=== PATIENT | female | born 1950 | race Caucasian/White ===

== ENCOUNTER 2020-04-28 15:21 | Outpatient (REF) | payer MEDICARE, OTHER, SELFPAY | END 2020-04-28 15:22 | disposition home or self-care (01) | LOC: HO.MAMMO 15:21 | PROVIDERS: Visit Provider Internal Medicine | DX: Z13.89 Encounter for screening for other disorder (principal) ==

== ENCOUNTER 2020-05-21 14:54 | Outpatient (REF) | payer MEDICARE, OTHER, SELFPAY ==
--- NOTE | 2020-05-21 15:14 | US_ITS ---
EXAMINATION: US VENOUS ULTRASOUND WITH DOPPLER LOWER EXTREMITY, BILATERAL CLINICAL INFORMATION: Lower extremity pain. COMPARISON: None TECHNIQUE: Ultrasound of the deep veins is performed from the hip to the calf with compression sonography and color and pulse Doppler assessment. Spectral analysis with color-flow imaging is performed. FINDINGS: RIGHT: There is normal venous compression and respiratory variation and augmented flow. The visualized common femoral vein, femoral vein, profunda femoral vein, popliteal vein, and the trifurcation region shows no evidence of deep venous thrombosis. The distal segment of the right femoral vein as well as the peroneal and posterior tibial veins were suboptimally visualized. There is no significant popliteal fossa cyst. LEFT: There is normal venous compression and respiratory variation and augmented flow. The visualized common femoral vein, femoral vein, profunda femoral vein, popliteal vein, and the trifurcation region shows no evidence of deep venous thrombosis. The left peroneal vein was suboptimally visualized. There is no significant popliteal fossa cyst. No popliteal cyst is seen bilaterally. The subcutaneous soft tissues show mild to moderate edema in the calves bilaterally. If the patient's symptoms persist, followup ultrasound in 5 days 7 days might be of value to exclude proximal propagation from a non-visualized calf vein. US/US venous duplex LE BI IMPRESSION: 1. No evidence for deep venous thrombosis in the visualized veins of the bilateral lower extremities. 2. Mild to moderate subcutaneous edema in the calves bilaterally.
[2020-05-21 16:21] LABS: MANUAL DIFF FLAG NO
[2020-05-21 16:26] LABS: Basophils Percent Auto 0.4 % (0-2); Eosinophils Absolute Auto 0.6 X10*3/uL (0.0-0.4); Eosinophils Percent Auto 6.7 % (0-4); Hematocrit 40.7 % (37-47); Hemoglobin 13.2 g/dl (12.0-16.0); Imm Gran Abs Auto 0.02 X10*3/uL (0.00-0.03); Imm Gran Pct Auto 0.2 % (0.0-0.4); Lymphocytes Absolute Auto 1.8 X10*3/uL (1.2-4.9); Lymphocytes Percent Auto 19.6 % (20-40); Mean Corpuscular HGB Conc 32.4 g/dl (31.0-35.0); Mean Corpuscular Hemoglobin 29.8 pg (27.0-33.0); Mean Corpuscular Volume 91.9 fL (80-98); Mean Platelet Volume 9.9 fL (9.4-12.3); Monocytes Absolute Auto 0.8 X10*3/uL (0.1-1.2); Monocytes Percent Auto 8.6 % (2-11); Neutrophils Absolute Auto 6.1 X10*3/uL (2.0-8.3); Neutrophils Percent Auto 64.5 % (45-73); Platelet Count 274 X10*3/uL (160-400); Red Blood Count 4.43 X10*6/uL (4.20-5.50); Red Cell Distribution Width 14.2 % (11.0-16.0); White Blood Count 9.4 X10*3/uL (4.8-10.8)
[2020-05-21 16:47] LABS: Alanine Aminotransferase 17 U/L (0-31); Albumin Level 3.5 g/dL (3.5-5.0); Alkaline Phosphatase 78 U/L (39-117); Anion Gap 12 (12-20); Aspartate Amino Transferase 21 U/L (5-31); Bilirubin Total 0.5 mg/dL (0.0-1.0); Blood Urea Nitrogen 23 mg/dL (9-16); Calcium 8.9 mg/dL (8.4-10.2); Carbon Dioxide 27 mmol/L (22-29); Chloride 105 mmol/L (96-108); Cholesterol 196 mg/dL; Estimated Glomerular Filt Rate > 60; Glucose Random 84 mg/dL (60-115); HDL Cholesterol 54 mg/dL; LDL Cholesterol Calculated 124 mg/dl; Potassium 4.4 mmol/l (3.3-5.1); Sodium 140 mmol/L (135-145); Total Protein 6.9 g/dL (6.5-8.0); Triglycerides 94 mg/dL
[2020-05-21 17:00] LABS: Appearance Urine CLEAR; Color Urine YELLOW; Glucose Urine UA NEG (NEG); Leukocyte Esterase Urine NEG (NEG); Nitrite Urine NEG (NEG); Specific Gravity - Urine 1.015 (1.005-1.025); Urine Blood 2+ (NEG); Urine Ketones NEG (NEG); Urine Protein 1+ MG/DL (NEG-TRACE)
[2020-05-21 17:07] LABS: Thyroid Stimulating Hormone 1.51 uIU/mL (0.32-4.0)
[2020-05-21 17:14] LABS: WBC Urine 0 /HPF (0-4)
[2020-05-21 17:15] LABS: Squamous Epithelial Cell Urine TRACE /LPF
[2020-05-21 17:19] LABS: Folate 6.3 ng/mL (> or = 4.0); Vitamin B12 519 pg/mL (200-900)
== END 2020-05-21 14:55 | disposition home or self-care (01) ==
LOC: HO.LAB 14:54
PROVIDERS: PCP Internal Medicine; Visit Provider Internal Medicine
DX: M79.89 Other specified soft tissue disorders (principal); E78.00 Pure hypercholesterolemia, unspecified; I10 Essential (primary) hypertension
CPT/HCPCS: 36415; 80053; 80061; 81001; 82306; 82607; 82746; 84443; 85025; 93970

== ENCOUNTER 2020-06-28 16:04 | Outpatient (REF) | payer MEDICARE, OTHER, SELFPAY ==
--- NOTE | 2020-06-28 | MM_ITS ---
EXAMINATION: MM SCREENING DIGITAL BREAST TOMOSYNTHESIS, BILATERAL CLINICAL INFORMATION: Screening. Asymptomatic. The lifetime risk of breast cancer based on the Tyrer-Cuzick Model is 4%. COMPARISON: Mammography: 11/08/2018, 10/22/2017, 10/05/2016, 11/11/2014 TECHNIQUE: Digital breast tomosynthesis is performed in both the craniocaudal and mediolateral oblique views along with computer-aided detection (CAD). Synthesized 2D images are generated from the tomosynthesis. Additional left CC view is provided. Technologist notes challenging exam, patient in wheelchair. Exam tailored for patient capabilities. FINDINGS: There are scattered areas of fibroglandular density (ACR BI-RADS breast composition Category b). Breast tissue composition borders on predominantly fatty. Background stromal markings and fibroglandular densities are stable. There are no significant masses, abnormal calcifications, or other abnormalities. There are scattered bilateral round predominantly dermal calcifications, slightly greater on right. MM/MM tomosynthesis screening BI IMPRESSION: No mammographic evidence of malignancy. ASSESSMENT: BI-RADS 2: Benign RECOMMENDATION: Routine annual mammography screening. This patient's information was entered into a reminder system with a target due date for their next mammogram.
== END 2020-06-28 16:05 | disposition home or self-care (01) ==
LOC: HO.MAMMO 16:04
PROVIDERS: Visit Provider Internal Medicine
DX: Z12.31 Encounter for screening mammogram for malignant neoplasm of breast (principal)
CPT/HCPCS: 77063; 77067

== ENCOUNTER 2020-06-29 15:08 | Outpatient (REF) | payer MEDICARE, OTHER, SELFPAY ==
--- NOTE | 2020-06-29 | PFT_ITS ---
INDICATION: Interstitial lung disease. SPIROMETRY: The FEV1 to FVC of 79% with an FEV1 of 1.37 L, which is 59% predicted and an FVC of 1.75 L, which is 57% predicted. No significant response to bronchodilators noted. Maximum voluntary ventilation 52% predicted. LUNG VOLUMES: Total lung capacity 70% predicted with an expiratory reserve volume of 17% predicted likely from an elevated BMI. DIFFUSION CAPACITY: DLCO 75% predicted. This does correct to normal when correcting for the alveolar volume. COMPARISONS: None. INTERPRETATION: No obstructive ventilatory defect. No significant response to bronchodilators noted. There may be a component of small airways disease, which may be due to the elevated BMI. The patient also has a moderate decrease in maximum voluntary ventilation, which could be secondary to deconditioning. Lung volumes do demonstrate a moderate restrictive ventilatory defect consistent with underlying elevated BMI or body habitus in addition to the possibility of underlying interstitial lung disease. The patient has mild diffusion impairment. This does correct to normal when correcting for the alveolar volume. Need to consider underlying interstitial lung conditions and/or underlying pulmonary vascular conditions. Clinical correlation warranted. MD JACK Singh/VIPIN / [id number]
== END 2020-06-29 15:09 | disposition home or self-care (01) ==
LOC: HO.RESP 15:08
PROVIDERS: PCP Internal Medicine; Visit Provider Internal Medicine Pulmonary Disease
DX: J84.9 Interstitial pulmonary disease, unspecified (principal)
CPT/HCPCS: 94060; 94727; 94729; 99212

== ENCOUNTER → 2020-08-23 14:20 | Outpatient (REF) | payer MEDICARE, OTHER, SELFPAY ==
--- NOTE | ~2020-08-23 | US_ITS ---
EXAMINATION: US RETROPERITONEAL LIMITED (RENAL ONLY) CLINICAL INFORMATION: Renal neoplasm. Angiomyolipoma. COMPARISON: Ultrasound renal 08/06/2019. Ultrasound renal 08/15/2018. X-ray KUB 03/31/2019. X-ray abdomen 03/15/2017. CT abdomen and pelvis 12/03/2017. TECHNIQUE: Real-time imaging of the kidneys. FINDINGS: RIGHT KIDNEY: 12.1 x 5.3 x 5.6 cm (SAG x AP x TRV). The kidney is normal in size, contour, and echogenicity. Renal cortical thickness is normal. There are 3 cysts. There is a 3.1 x 2.6 x 2.5 cm simple peripelvic cyst in the midpole. There is a 3.2 x 1.8 x 2.5 cm complex cyst with slightly irregular septation in the midpole. There is a 1.1 x 0.5 x 0.8 cm simple cortical cyst in the lower pole. No renal calculi or hydronephrosis. LEFT KIDNEY: 11.5 x 5.4 x 6.5 cm (SAG x AP x TRV). The kidney is normal in size, contour, and echogenicity. Renal cortical thickness is normal. There is a 1.4 x 0.9 x 1 cm simple cortical cyst in the lower pole. No renal calculi or hydronephrosis. US/US renal BI IMPRESSION: Three right renal cysts. There is a 3.2 x 1.8 x 2.5 cm complex peripelvic cyst in the right mid pole with slightly irregular septation. The other 2 right renal cysts are simple cysts. Small left renal simple cyst. No renal angiomyolipoma appreciated by ultrasound..
--- NOTE | 2020-08-23 14:24 | CA_ITS ---
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 Normal LV systolic function with impaired relaxation filling pattern 2. Normal cardiac valvular Dopplers 3. Normal RV systolic pressure 4. No gross pericardial effusion Findings Left Ventricle Normal left ventricular size, thickness, and systolic function. The visually estimated ejection fraction is between 55-60%. Spectral Doppler is indicative of an impaired relaxation filling pattern. E/E prime ratio is between 8 and 15 consistent with indeterminate filling pressures. Right Ventricle Normal right ventricular cavity size and systolic function. Atria The left atrium is normal in size. Interatrial shunt cannot be excluded. The right atrium was not well visualized. Aortic Valve The aortic valve was not well visualized. There is no aortic valve stenosis. There is no aortic valve regurgitation. Mitral Valve Likely normal mitral valve structure and function. There is no mitral valve regurgitation. There is no mitral valve stenosis. Pulmonic Valve The pulmonic valve was not well visualized. Tricuspid Valve Likely normal tricuspid valve structure and function. There is trace tricuspid valve regurgitation. The right ventricular systolic pressure is normal. The right ventricular systolic pressure is 21 mmHg. There is no evidence of pulmonary hypertension. Great Vessels The aorta was not well visualized. The pulmonary artery was not well visualized. Venous The inferior vena cava is normal in size and collapses greater than 50% with inspiration. Pericardium/Pleural There is no evidence of pericardial effusion. Prior Study Comparison No significant change compared to prior study dated: 02/05/2020. Ascending aorta is not well visualized on this study, if there is a concern consider alternative imaging modalities Measurements 2D Linear Measurements IVSd: 1.08 0.6-0.9/0.6-1.0 cm LVIDd: 3.45 3.9-5.3/4.2-5.9 cm LVIDd Index: 1.47 2.4-3.2/2.2-3.1 cm/m2 LVIDs: 2.36 2.0-3.6 cm LVPWd: 1.04 0.7-1.1 cm Ao Root: 3.00 2.1-3.5 cm LA Diam: 3.20 2.7-3.8/3.0-4.0 cm LAIDs Index: 1.36 1.5-2.3 cm/m2 LV Mass: 137.01 67-162/88-224 g LV Mass Index: 58.30 43-95/49-115 g/m2 LVOT Diam: 2.00 3.0+(-)1.3 cm 2D Systolic Function EF 4C: 56.10 >55% EF 2C: 55.90 >55% Mitral Valve MV Pk E: 0.81 MV PK A: 1.13 MV Decel Time: 219.00 E/A: 0.70 E'Lateral: 7.07 E'Medial: 6.20 E/E' Med: 13.10 E/E' Lat: 11.50 PHT: 64.00 MVA PHT: 3.44 Decel Sandoval: 3.73 Aortic Valve AoV Pk Hakan: 1.58 AoV Mn Hakan: 1.18 AoV VTI: 0.38 AoV Pk Grad: 10.00 Aov Mn Grad: 6.00 GALINDO Cont.VTI: 2.47 LVOT LVOT Pk Hakan: 1.35 LVOT Mn Hakan: 0.91 LVOT VTI: 0.30 LVOT Pk Grad: 7.00 LVOT Mn Grad: 4.00 LVOT Diam: 2.00 LVOT Area: 3.14 Diastolic Function MV Pk E: 0.81 MV Pk A: 1.13 E/A: 0.70 E'Medial: 6.20 E/E' Med: 13.10 E' Laterial: 7.07 E/E' Lat: 11.50 Tricuspid Valve TR Pk Hakan: 2.14 TR Pk Grad: 18.00 RA Press: 3.00 RVSP: 21.00 Great Vessels Aorta Ao Root-2D: 3.00 2.0-3.7 cm Ao Asc: 3.60 2.1-3.4 cm Ao Arch: 3.00 Updated in Other Vendor System with Status of Final Juan Hall MD electronically signed on 08/24/2020 8:57:57 AM with status of Final
== END ==
LOC: HO.CARD 14:20
PROVIDERS: Visit Provider Internal Medicine
DX: I77.810 Thoracic aortic ectasia (principal); D49.519 Neoplasm of unspecified behavior of unspecified kidney; D17.9 Benign lipomatous neoplasm, unspecified
CPT/HCPCS: 76775; 93306

== ENCOUNTER → 2020-09-02 15:50 | Outpatient (BNVA) | payer MEDICARE, SELFPAY | PROVIDERS: PCP Internal Medicine; Visit Provider Urology | DX: Z13.89 Encounter for screening for other disorder (principal) | CPT/HCPCS: Q3014 ==

== ENCOUNTER → 2020-09-06 12:44 | Outpatient (BNVA) | payer MEDICARE, SELFPAY | PROVIDERS: PCP Internal Medicine; Referring Provider Internal Medicine; Visit Provider Internal Medicine | DX: Z13.89 Encounter for screening for other disorder (principal) | CPT/HCPCS: Q3014 ==

== ENCOUNTER 2020-09-09 16:40 | Outpatient (REF) | payer MEDICARE, SELFPAY ==
[2020-09-09 17:52] LABS: MANUAL DIFF FLAG NO
[2020-09-09 18:08] LABS: Glucose Urine UA NEG (NEG); Leukocyte Esterase Urine NEG (NEG); Nitrite Urine NEG (NEG); PH 5.5 (5.0-8.0); Specific Gravity - Urine 1.015 (1.005-1.025); Urine Blood 2+ (NEG); Urine Ketones NEG (NEG); Urine Protein 1+ MG/DL (NEG-TRACE)
[2020-09-09 18:09] LABS: Appearance Urine CLEAR; Color Urine YELLOW
[2020-09-09 18:16] LABS: Bacteria Urine 1+ /LPF; Squamous Epithelial Cell Urine 2+ /LPF; WBC Urine 0 /HPF (0-4)
[2020-09-09 18:19] LABS: Basophils Percent Auto 0.4 % (0-2); Eosinophils Absolute Auto 0.6 X10*3/uL (0.0-0.4); Eosinophils Percent Auto 6.9 % (0-4); Hematocrit 40.5 % (37-47); Hemoglobin 12.8 g/dl (12.0-16.0); Imm Gran Abs Auto 0.02 X10*3/uL (0.00-0.03); Imm Gran Pct Auto 0.2 % (0.0-0.4); Lymphocytes Absolute Auto 1.2 X10*3/uL (1.2-4.9); Lymphocytes Percent Auto 13.1 % (20-40); Mean Corpuscular HGB Conc 31.6 g/dl (31.0-35.0); Mean Corpuscular Hemoglobin 29.8 pg (27.0-33.0); Mean Corpuscular Volume 94.2 fL (80-98); Mean Platelet Volume 10.3 fL (9.4-12.3); Monocytes Absolute Auto 0.8 X10*3/uL (0.1-1.2); Monocytes Percent Auto 8.7 % (2-11); Neutrophils Absolute Auto 6.6 X10*3/uL (2.0-8.3); Neutrophils Percent Auto 70.7 % (45-73); Platelet Count 254 X10*3/uL (160-400); Red Cell Distribution Width 14.3 % (11.0-16.0); White Blood Count 9.3 X10*3/uL (4.8-10.8)
[2020-09-09 18:21] LABS: Anion Gap 12 (12-20); Blood Urea Nitrogen 29 mg/dL (9-16); Calcium 8.9 mg/dL (8.4-10.2); Carbon Dioxide 28 mmol/L (22-29); Chloride 106 mmol/L (96-108); Estimated Glomerular Filt Rate > 60; Glucose Fasting 103 mg/dL (60-99); Potassium 4.4 mmol/L (3.3-5.1); Sodium 142 mmol/L (135-145)
[2020-09-09 18:44] LABS: Free T4 (Free Thyroxine) 0.86 ng/dL (0.71-1.85); Thyroid Stimulating Hormone 1.61 uIU/mL (0.32-4.0)
[2020-09-10 04:43] LABS: SARS COV2 IgG Negative (Negative)
== END 2020-09-09 16:41 | disposition home or self-care (01) ==
LOC: HO.LAB 16:40
PROVIDERS: Nurse Practitioner Family; Absent Provider Internal Medicine; PCP Internal Medicine; Visit Provider Internal Medicine
DX: I10 Essential (primary) hypertension (principal); M79.89 Other specified soft tissue disorders; M06.9 Rheumatoid arthritis, unspecified; J84.9 Interstitial pulmonary disease, unspecified; E04.2 Nontoxic multinodular goiter; Z01.84 Encounter for antibody response examination
CPT/HCPCS: 36415; 80048; 81001; 84439; 84443; 85025; 86769

== ENCOUNTER 2020-09-16 16:44 | Outpatient (REF) | payer MEDICARE, SELFPAY ==
--- NOTE | ~2020-09-16 | US_ITS ---
EXAMINATION: US THYROID CLINICAL INFORMATION: Nontoxic multinodular goiter. COMPARISON: Thyroid ultrasound 02/05/2020 and 07/14/2019. TECHNIQUE: Linear transducer bhakta-scale and color Doppler examination with attention to the region of the thyroid. Technically difficult study secondary to body habitus. FINDINGS: SIZE: Measurements of the thyroid lobes and nodules are given in sagittal, anteroposterior and transverse dimensions respectively. Right Thyroid Lobe: 3.8 x 1.8 x 2.0 cm, volume 7.4 mL. Previously 3.8 x 2.0 x 1.9 cm, volume 7.6 mL. Parenchyma: The gland echotexture is homogeneous. Thyroid vascularity is normal. Left Thyroid Lobe: 3.8 x 2.0 x 1.7 cm, volume 7.3 mL. Previously 3.7 x 1.8 x 2.0 cm, volume 7.0 mL. Parenchyma: The gland echotexture is homogeneous. Thyroid vascularity is normal. Isthmus: 0.5 cm in maximum AP dimension. Previously 0.4 cm. Estimated total number of nodules greater than or equal to 1 cm: 1. Math Teacher nodules are described as follows: 1. Location: Right lower pole. Size: 0.6 x 0.5 x 0.3 cm, volume 0.05 mL. Previously: 0.4 x 0.4 x 0.3 cm, volume 0.03 mL. Nodule characteristics: Composition: Solid (2). Echogenicity: Anechoic (0). Shape: Not taller than wide (0). Margins: Ill-defined (0). Echogenic Foci: None (0). ACR TI-RADS total points: 2 ACR TI-RADS category: 2 Significant change in size (>/= 20% in 2 dimensions and minimal increase of 2 mm or 50% or greater increase in volume): None. Change in features: Slightly ill-defined at this time. Change in ACR TI-RADS risk category: None. 2. Location: Left mid pole. Size: 2.0 x 1.1 x 1.4 cm, volume 1.6 mL. Previously: 1.7 x 0.9 x 1.5 cm, volume 1.2 mL. Nodule characteristics: Composition: Solid/almost completely solid (2). Echogenicity: Hypoechoic (2). Shape: Not taller than wide (0). Margins: Smooth (0). Echogenic Foci: None (0). ACR TI-RADS total points: 4 ACR TI-RADS category: 4 Significant change in size (>/= 20% in 2 dimensions and minimal increase of 2 mm or 50% or greater increase in volume): None. Change in features: None. Change in ACR TI-RADS risk category: None. NODES: No lymphadenopathy is seen in the tissue surrounding the thyroid gland. US/US thyroid IMPRESSION: Stable bilateral thyroid nodules. Recommend continued follow up. ACR TI-RADS RECOMMENDATION REFERENCE: Ultrasound-guided fine-needle aspiration, follow up ultrasound, no further follow up. * TR1 (0 point) and TR 2 (2 points): No FNA or follow up * TR3 (3 points): FNA if more than or equal to 2.5 cm in maximum dimension, follow up ultrasound in 1, 3 and 5 years if 1.5 to 2.4 cm in maximum dimension. * TR4 (4-6 points): FNA if more than or equal to 1.5 cm in maximum dimension, follow up ultrasound in 1, 2, 3 and 5 years if 1 to 1.4 cm in maximum dimension. * TR5 (more than or equal to 7 points): FNA if more than or equal to 1 cm in maximum dimension, follow up ultrasound every year for 5 years if 0.5 to 0.9 cm in maximum dimension. * TR3, TR4 or TR5 nodules that are below the size threshold for follow up receive no follow up.
== END 2020-09-16 16:45 | disposition home or self-care (01) ==
LOC: HO.US 16:44
PROVIDERS: Visit Provider Internal Medicine
DX: E04.2 Nontoxic multinodular goiter (principal)
CPT/HCPCS: 76536

== ENCOUNTER → 2020-10-06 14:13 | Outpatient (BNVA) | payer MEDICARE, SELFPAY | PROVIDERS: PCP Internal Medicine; Visit Provider Internal Medicine | DX: E04.2 Nontoxic multinodular goiter (principal) | CPT/HCPCS: Q3014 ==

== ENCOUNTER → 2020-10-07 15:43 | Outpatient (BNVA) | payer MEDICARE, SELFPAY | PROVIDERS: PCP Internal Medicine; Visit Provider Internal Medicine Pulmonary Disease | DX: J84.9 Interstitial pulmonary disease, unspecified (principal); E66.01 Morbid (severe) obesity due to excess calories | CPT/HCPCS: 99212 ==

== ENCOUNTER 2020-11-02 13:17 | Outpatient (REF) | payer MEDICARE, SELFPAY ==
--- NOTE | ~2020-11-02 | XR_ITS ---
EXAMINATION: XR HAND AND WRIST, BILATERAL CLINICAL INFORMATION: Rheumatoid arthritis. COMPARISON: None TECHNIQUE: 4 views each hand/wrist. FINDINGS: RIGHT HAND: There is diffuse juxta-articular osteopenia involving the carpal bones. There is diffuse loss of PIP, DIP and MCP joints. Also visualized is loss of radiocarpal joint space. There is mild soft tissue swelling PIP joints. LEFT HAND: There is juxta-articular and carpal bone osteoporosis. Significant loss of PIP, DIP, MCP and radiocarpal joint spaces seen. There is mild proximal phalangeal soft tissue swelling of 2nd through 4th digits. No flexion deformities or subluxation seen. XR/XR hand wrist LT IMPRESSION: Bilateral diffuse arthritic changes with juxta-articular and carpal bone osteoporosis more suggestive of rheumatoid changes. There are no flexion deformities seen. No acute fracture.
--- NOTE | ~2020-11-02 | XR_ITS ---
EXAMINATION: XR HAND AND WRIST, BILATERAL CLINICAL INFORMATION: Rheumatoid arthritis. COMPARISON: None TECHNIQUE: 4 views each hand/wrist. FINDINGS: RIGHT HAND: There is diffuse juxta-articular osteopenia involving the carpal bones. There is diffuse loss of PIP, DIP and MCP joints. Also visualized is loss of radiocarpal joint space. There is mild soft tissue swelling PIP joints. LEFT HAND: There is juxta-articular and carpal bone osteoporosis. Significant loss of PIP, DIP, MCP and radiocarpal joint spaces seen. There is mild proximal phalangeal soft tissue swelling of 2nd through 4th digits. No flexion deformities or subluxation seen. XR/XR hand wrist RT IMPRESSION: Bilateral diffuse arthritic changes with juxta-articular and carpal bone osteoporosis more suggestive of rheumatoid changes. There are no flexion deformities seen. No acute fracture.
[2020-11-02 15:23] LABS: Hemoglobin 12.6 g/dl (12.0-16.0); Imm Gran Abs Auto 0.02 X10*3/uL (0.00-0.03); Imm Gran Pct Auto 0.2 % (0.0-0.4); Lymphocytes Percent Auto 14.7 % (20-40); MANUAL DIFF FLAG SCAN; PLT CLUMP 1; Red Cell Distribution Width 14.1 % (11.0-16.0); SCAN SMEAR FLAG 1
[2020-11-02 15:24] LABS: Alanine Aminotransferase 10 U/L (0-31); Albumin Level 3.3 g/dL (3.5-5.0); Alkaline Phosphatase 83 U/L (39-117); Anion Gap 10 (12-20); Aspartate Amino Transferase 21 U/L (5-31); Basophils Absolute Auto 0.1 X10*3/uL (0.0-0.2); Basophils Percent Auto 0.6 % (0-2); Bilirubin Total 0.5 mg/dL (0.0-1.0); Blood Urea Nitrogen 23 mg/dL (9-16); C Reactive Protein 2.78 mg/dL (< or = 0.50); Calcium 9.4 mg/dL (8.4-10.2); Carbon Dioxide 29 mmol/L (22-29); Chloride 105 mmol/L (96-108); Eosinophils Absolute Auto 0.7 X10*3/uL (0.0-0.4); Estimated Glomerular Filt Rate > 60; Glucose Random 107 mg/dL (60-115); Hematocrit 39.2 % (37-47); Lymphocytes Absolute Auto 1.3 X10*3/uL (1.2-4.9); Mean Corpuscular HGB Conc 32.1 g/dl (31.0-35.0); Mean Corpuscular Hemoglobin 29.9 pg (27.0-33.0); Mean Corpuscular Volume 93.1 fL (80-98); Mean Platelet Volume 10.9 fL (9.4-12.3); Monocytes Absolute Auto 0.9 X10*3/uL (0.1-1.2); Monocytes Percent Auto 10.1 % (2-11); Neutrophils Absolute Auto 5.7 X10*3/uL (2.0-8.3); Neutrophils Percent Auto 66.4 % (45-73); Potassium 4.2 mmol/L (3.3-5.1); Red Blood Count 4.21 X10*6/uL (4.20-5.50); Rheumatoid Factor 62.7 IU/mL (<15.0); Sodium 140 mmol/L (135-145); Total Protein 6.8 g/dL (6.5-8.0); White Blood Count 8.6 X10*3/uL (4.8-10.8)
[2020-11-02 15:57] LABS: SLIDE REVIEW VERIFIED
[2020-11-02 16:29] LABS: Erythrocyte Sedimentation Rate 39 MM/HR (0-20)
[2020-11-03 08:14] LABS: Hepatitis A Antibody IgM 0.11 Index (0-0.79); ~HepC Num1 0.12 S/CO (0.00-0.79); ~Hepatitis A Antibody IgM Nonreactive (Nonreactive); ~Hepatitis C Antibody Nonreactive (Nonreactive)
[2020-11-03 08:29] LABS: HBS Num1 0.11 mIU/mL (0-7.99); HBc Num1 0.08 S/CO (0.00-0.79); Hepatitis B Core Antibody Nonreactive (Nonreactive); Hepatitis B Surface Antigen Negative (Negative); ~Hepatitis B Surface Antibody NONREACTIVE (Nonreactive)
[2020-11-03 11:26] LABS: Antibody to SS-A Antigen <1.0 NEG AI (<1.0 NEG); Antibody to SS-B Antigen <1.0 NEG AI (<1.0 NEG)
[2020-11-03 13:51] LABS: Anti Nuclear Antibody Screen NEGATIVE (NEGATIVE)
[2020-11-03 16:18] LABS: Cyclic Citrullinated Peptide >250 UNITS
[2020-11-05 15:06] LABS: TS Negative Control Passed; TS Panel A 1; TS Panel B 0; TS Positive Control Passed; TSpotTB Negative (SeeBelow)
== END 2020-11-02 13:18 | disposition home or self-care (01) ==
LOC: HO.LAB 13:17
PROVIDERS: PCP Internal Medicine; Visit Provider Student in an Organized Health Care Education/Training Program
DX: M06.9 Rheumatoid arthritis, unspecified (principal); J84.9 Interstitial pulmonary disease, unspecified; Z79.899 Other long term (current) drug therapy
CPT/HCPCS: 36415; 73110; 73130; 80053; 85025; 85652; 86038; 86039; 86140; 86200; 86235; 86431; 86481; 86704; 86706; 86709; 86803; 87340; 99202

== ENCOUNTER → 2020-11-19 13:43 | Outpatient (BNVA) | payer MEDICARE, SELFPAY | PROVIDERS: PCP Internal Medicine; Visit Provider Student in an Organized Health Care Education/Training Program | DX: M06.9 Rheumatoid arthritis, unspecified (principal); J84.9 Interstitial pulmonary disease, unspecified | CPT/HCPCS: 99212 ==

== ENCOUNTER 2021-03-03 17:10 | Emergency (ER) | payer MEDICARE, SELFPAY ==
--- NOTE | ~2021-03-03 | US_ITS ---
EXAMINATION: US VENOUS ULTRASOUND WITH DOPPLER LOWER EXTREMITY, BILATERAL CLINICAL INFORMATION: Swelling and pain COMPARISON: None TECHNIQUE: Ultrasound of the deep veins is performed from the hip to the calf with compression sonography and color and pulse Doppler assessment. Spectral analysis with color-flow imaging is performed. FINDINGS: RIGHT: There is normal venous compression and respiratory variation and augmented flow. The visualized common femoral vein, superficial femoral vein, profunda femoral vein, popliteal vein, and the trifurcation region shows no evidence of deep venous thrombosis. There is no significant popliteal fossa cyst. LEFT: There is normal venous compression and respiratory variation and augmented flow. The visualized common femoral vein, superficial femoral vein, profunda femoral vein, popliteal vein, and the trifurcation region shows no evidence of deep venous thrombosis. There is no significant popliteal fossa cyst. Limited assessment of the femoral vein at the level of the abductor canal. If the patient's symptoms persist, followup ultrasound in 5 days 7 days might be of value to exclude proximal propagation from a non-visualized calf vein. US/US venous duplex LE BI IMPRESSION: No DVT demonstrated in the bilateral lower extremity. Limited assessment technically of the left distal femoral vein.
[2021-03-03 17:53] VITALS: BP 130/72; PULSE 99; RESP 18; TEMP 36.9; O2SAT 97; BMI 51.5
--- NOTE | 2021-03-03 21:18 | ED.GENADULT ---
HPI - General Adult General Chief complaint: General Medical Stated complaint: leg pain Time Seen by Provider: 03/03/21 21:18 Source: patient and family (Spouse) Mode of arrival: ambulatory Limitations: no limitations History of Present Illness HPI narrative: 70-year-old female who is wheelchair-bound brought in for evaluation of bilateral lower extremities pain. The patient has been complaining of swelling in lower extremities for years, redness for few months, patient was evaluated by a mortician helper/PCP was treated with topical ointment for antifungal treatment patient will have a dermatology follow-up next week. Patient is here today because this morning woke up with pain in both legs which is a new symptoms. No recent travel but patient is wheelchair bound. Related Data Home Medications Medication Instructions Recorded Confirmed ascorbic acid (vitamin C) 500 mg mg PO 04/19/20 01/31/21 capsule betamethasone dipropionate 0.05 % 1 applic TOPICAL DAILY 04/19/20 01/31/21 lotion calcium carbonate 600 mg calcium 600 mg PO DAILY 04/19/20 01/31/21 (1,500 mg) tablet (Calcium) cholecalciferol (vitamin D3) 25 25 mcg PO DAILY 04/19/20 01/31/21 mcg (1,000 unit) capsule coenzyme Q10 10 mg capsule (Co 10 mg PO DAILY cap 04/19/20 01/31/21 Q-10) cyanocobalamin (vitamin B-12) 1,000 mcg PO DAILY 04/19/20 11/08/20 1,000 mcg capsule multivitamin 1 tab PO DAILY 04/19/20 01/31/21 omega-3 fatty acids 1,000 mg 1,000 mg PO DAILY 04/19/20 01/31/21 capsule ciclopirox 0.77 % topical cream applic TOPICAL 05/12/20 01/31/21 ketoconazole 2 % topical cream applic TOPICAL 05/12/20 01/31/21 triamcinolone acetonide 0.1 % applic TOPICAL 05/12/20 01/31/21 topical cream glucosamine sulf NaCl-chondroitin pkg PO 09/06/20 11/08/20 sulf sodium 750 mg-400 mg oral pack ipratropium 0.5 mg-albuterol 3 mg 3 ml INHALATION Q4-6H PRN 09/06/20 01/31/21 (2.5 mg base)/3 mL nebulization soln zinc 22 mg tablet 20 mg PO DAILY tab 10/06/20 01/31/21 Previous Rx's Medication Instructions Recorded losartan 50 mg tablet 50 mg PO DAILY #90 tab 08/02/20 Ventolin HFA 90 mcg/actuation 2 puff INHALATION Q4-6H PRN #18 g 08/24/20 aerosol inhaler (albuterol sulfate) NS adalimumab 40 mg/0.4 mL See Rx Instructions SUBCUT 11/19/20 subcutaneous syringe kit .COMPLEX #2 ea (Humira(CF)) prednisone 5 mg tablet 5 mg PO DAILY #90 tab 01/14/21 polyethylene glycol 3350 17 17 g PO DAILY PRN #238 g 01/31/21 gram/dose oral powder (Miralax) hydrocortisone 2.5 % topical cream 1 appl CA BID-QID PRN #30 g 02/28/21 with perineal applicator (Proctosol HC) lactulose 10 gram/15 mL (15 mL) 20 g PO BEDTIME PRN #750 ml 02/28/21 oral solution Allergies Allergy/AdvReac Type Severity Reaction Status Date / Time amlodipine Allergy Unknown Unknown Verified 02/28/21 16:51 atenolol Allergy Unknown Unknown Verified 02/28/21 16:51 atorvastatin [Lipitor] Allergy Unknown Unknown Verified 02/28/21 16:51 ciprofloxacin [Cipro] Allergy Unknown Unknown Verified 02/28/21 16:51 Doxycycline Hyclate Allergy Unknown Unknown Verified 02/28/21 16:51 hydrochlorothiazide Allergy Unknown Unknown Verified 02/28/21 16:51 Iodinated Contrast Media Allergy Unknown DIFFICULTY Verified 02/28/21 16:51 [CONTRAST, IV] BREATHING levofloxacin [Levaquin] Allergy Unknown Unknown Verified 02/28/21 16:51 lisinopril Allergy Unknown Unknown Verified 02/28/21 16:51 penicillin V Allergy Unknown rash Verified 02/28/21 16:51 Penicillins Allergy Unknown RASH, DIFF Verified 02/28/21 16:51 BREATHING TO ALL CILLIN DRUGS pseudoephedrine [Sudafed] Allergy Unknown Unknown Verified 02/28/21 16:51 strawberry Allergy Unknown Unknown Verified 02/28/21 16:51 Sulfa (Sulfonamide Allergy Unknown DIFFICULTY Verified 02/28/21 16:51 Antibiotics) BREATHING, [SULFA (SULFONAMIDE HIVES ANTIBIOTICS)] Tetracyclines [TETRACYCLINES] Allergy Unknown ? RXN Verified 02/28/21 16:51 valsartan [Diovan] Allergy Unknown Unknown Verified 02/28/21 16:51 verapamil Allergy Unknown Unknown Verified 02/28/21 16:51 Review of Systems Review of Systems: All other systems are reviewed and are negative Constitutional: Reports as per HPI and Reports no additional constitutional complaints Eyes: Reports as per HPI and Reports no additional eye complaints Reports system reviewed and no additional complaints, except as documented Cardiovascular: Reports as per HPI and Reports no additional cardiovascular complaints Respiratory: Reports as per HPI and Reports no additional respiratory complaints Gastrointestinal: Reports as per HPI and Reports no additional gastrointestinal complaints Genitourinary: Reports no additional female genitourinary complaints Musculoskeletal: Reports no additional musculoskeletal complaints Skin/Breast: Reports system reviewed and no additional complaints, except as docu Psychiatric: Reports no additional psychiatric complaints Endocrine: Reports no additional endocrine complaints Hematologic/Lymphatic: Reports no additional hematologic/lymphatic complaints Allergic/Immunologic: Reports no additional allergic/immunologic complaints Reports system reviewed and no additional complaints, except as documented and Reports Abnormal speech present [facility] Past Medical History Medical History Adult general medical exam 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 Asthma GERD (gastroesophageal reflux disease) History of renal calculi Hypertension Interstitial lung disease Morbid obesity Multinodular thyroid Obstructive sleep apnea Post-menopausal Rheumatoid arthritis Screening for hyperlipidemia Swelling of lower extremity Thyroid nodule Valvular heart disease Surgical History History of cholecystectomy History of colonoscopy History of D&C History of umbilical hernia repair Family History Family History Father CVD (cardiovascular disease) Mother CVD (cardiovascular disease) Hypertension Myocardial infarction Social History Social History Housing: House Alcohol intake: never Patient Tobacco Use Status: Never used Tobacco e-Cigarette/Vaping Use: Never Used Second Hand Smoke Exposure: No Advance Directives: No Advance Directives Information Provided: Yes service: No Current occupational status: disabled Physical Exam Vital Signs: Vital Signs: Last Vital Signs Temp 98.5 F 03/03/21 17:53 Pulse 99 03/03/21 17:53 Resp 18 03/03/21 17:53 BP 130/72 03/03/21 17:53 Pulse Ox 97 03/03/21 17:53 Body Mass Index 51.5 Vital signs have been reviewed as appeared to be correct. Blood pressure normal. Heart rate normal. Respiration rate normal. Temperature normal. Oxygen saturation normal. Appearance: Alert. Oriented X3. No acute distress. Head: Normal external exam. Normocephalic. Atraumatic. No [place] signs noted. No raccoon eyes noted Eyes: PERRLA. EOMI. Conjunctiva and sclera normal. Eyelids normal. ENT: TM's Normal. Pharynx normal. Uvula midline. Moist mucous membranes. No trismus noted. No drooling noted. No muffled voice noted. Neck: Normal inspection. Neck supple. FROM. No adenopathy. Thyroid Normal. No meningeal signs. No neck mass noted. CVS: Normal heart rate and rhythm. Heart sound normal. No murmurs noted. Pulses normal throughout. Respiratory: No respiratory distress. Painless inspiration. Breath sounds normal. No wheezes/rales/rhonchi noted. Chest nontender. No accessory muscle usage noted or decreased air movement noted. Abdomen: Soft and nontender. Bowel sounds normal in all 4 quadrants. No distention noted. No organomegaly noted. No visible injury noted. Back: No CVA tenderness. Full range of motion noted. Skin: Skin warm and dry. Normal skin color. Normal skin turgor. No rashes/lesions/lacerations noted. Extremities: Bilateral lower extremities+3 edema, chronic venous stasis to both anterior aspect of both legs with discoloration, bilateral calf tenderness Neuro: Oriented X 3. Cranial nerve exam: II-XII are grossly intact No motor deficit. No sensory deficit. Reflexes normal. Course Course Course Narrative: Assessment and plan. 70-year-old female with history of chronic lymphedema, patient normally is immobile , patient had bilateral lower extremities ultrasound which showed no DVT. Given the fact the patient is allergic to multiple medication including antibiotic will not start the patient empirically to cover presumed cellulitis specially physical exam is not favorable for cellulitis. Patient was instructed to do leg elevation, discussed with primary doctor/mortician helper starting on Lasix, using bilateral pressure sucks. Patient found to have leukocytosis today but patient is taking prednisone for RA and interstitial lung fibrosis which could be the reason why white count is slightly elevated. Medical Decision Making Lab Data Lab results reviewed: Yes I reviewed the patient's lab results. Result diagrams: 03/03/21 21:51 03/03/21 21:51 Labs: Lab Results 03/03/21 03/03/21 03/03/21 Range/Units 21:51 21:51 21:51 WBC 14.2 H (4.8-10.8) X10*3/uL RBC 4.23 (4.20-5.50) X10*6/uL Hgb 12.2 (12.0-16.0) g/dl Hct 38.0 (37-47) % MCV 89.8 (80-98) fL MCH 28.8 (27.0-33.0) pg MCHC 32.1 (31.0-35.0) g/dl RDW 14.6 (11.0-16.0) % Plt Count 381 D (160-400) X10*3/uL MPV 9.3 L (9.4-12.3) fL Immature Gran % (Auto) 0.5 H (0.0-0.4) % Neut % (Auto) 85.1 H (45-73) % Lymph % (Auto) 6.6 L (20-40) % [place] % (Auto) 6.0 (2-11) % Eos % (Auto) 1.5 (0-4) % Baso % (Auto) 0.3 (0-2) % Lymph # (Auto) 0.9 L (1.2-4.9) X10*3/uL [place] # (Auto) 0.9 (0.1-1.2) X10*3/uL Eos # (Auto) 0.2 (0.0-0.4) X10*3/uL Baso # (Auto) 0.0 (0.0-0.2) X10*3/uL Abs Immat Gran (auto) 0.07 H (0.00-0.03) X10*3/uL Absolute Neuts (auto) 12.1 H (2.0-8.3) X10*3/uL Absolute Nucleated RBC 0.000 (0.0-0.012) X10*3/uL Nucleated RBC % (auto) 0.0 (0.0-0.2) /100WBC Sodium 134 L (135-145) mmol/L Potassium 4.7 (3.3-5.1) mmol/L Chloride 101 (96-108) mmol/L Carbon Dioxide 26 (22-29) mmol/L Anion Gap 12 (12-20) BUN 17 H (9-16) mg/dL Creatinine 0.66 (0.5-1.4) mg/dL Estim Creat Clear Calc 110.8 Estimated GFR > 60 Random Glucose 125 H (60-115) mg/dL Lactic Acid 1.0 (0.5-2.0) mmol/L Calcium 9.3 (8.4-10.2) mg/dL Imaging Data Venous ultrasound bilateral lower extremities: Radiologist's impression: No DVT demonstrated in the bilateral lower extremity. Limited assessment technically of the left distal femoral vein. Discharge Plan Discharge Clinical Impression: Lymphedema Patient Disposition: Home, Self-Care Instructions: Lymphedema (ED) Prescriptions: No Action losartan 50 mg tablet 50 mg PO DAILY Qty: 90 RF: 3 albuterol sulfate [Ventolin HFA] 90 mcg/actuation HFA aerosol inhaler 2 puff inhalation Q4-6H PRN (Reason: shortness of breath or wheezing) Qty: 18 RF: 2 prednisone 5 mg tablet 5 mg PO DAILY Qty: 90 RF: 1 cholecalciferol (vitamin D3) 25 mcg (1,000 unit) capsule 25 mcg PO DAILY RF: 0 calcium carbonate [Calcium 600] 600 mg calcium (1,500 mg) tablet 600 mg PO DAILY RF: 0 cyanocobalamin (vitamin B-12) 1,000 mcg capsule 1,000 mcg PO DAILY RF: 0 ascorbic acid (vitamin C) 500 mg capsule PO RF: 0 multivitamin Tablet 1 tab PO DAILY RF: 0 omega-3 fatty acids 1,000 mg capsule 1,000 mg PO DAILY RF: 0 coenzyme Q10 [Co Q-10] 10 mg capsule 10 mg PO DAILY RF: 0 betamethasone dipropionate 0.05 % lotion 1 applic topical DAILY RF: 0 ipratropium-albuterol 0.5 mg-3 mg(2.5 mg base)/3 mL solution for nebulization 3 ml inhalation Q4-6H PRNRF: 0 glucosamine-chondroitn sulf.Na 750-400 mg combo pack PO RF: 0 ciclopirox 0.77 % cream topical RF: 0 triamcinolone acetonide 0.1 % cream topical RF: 0 ketoconazole 2 % cream topical RF: 0 polyethylene glycol 3350 [Miralax] 17 gram/dose powder 17 g PO DAILY PRN (Reason: constipation) Qty: 238 RF: 0 lactulose 10 gram/15 mL (15 mL) solution 20 g PO BEDTIME PRN (Reason: constipation) Qty: 750 RF: 1 hydrocortisone [Proctosol HC] 2.5 % cream with perineal applicator 1 appl CA BID-QID PRN (Reason: hemorrhoids) Qty: 30 RF: 1 zinc 22 mg tablet 20 mg PO DAILY RF: 0 Humira(CF) 40 mg/0.4 mL syringe kit See Rx Instructions subcut .COMPLEX Qty: 2 RF: 3 Referrals: Dario,Caryn Rice MD [Primary Care Provider] - 2 days
--- NOTE | 2021-03-03 21:25 | PC.NURSE ---
PT LOKESH DE LEÓN IN W/C. AT BEDSIDE FOR EVAL.
--- NOTE | 2021-03-03 21:34 | PC.NURSE ---
IN ROOM FOR EVAL.
--- NOTE | 2021-03-03 21:52 | PC.NURSE ---
LABS DRAWN TO LAB.
[2021-03-03 21:59] LABS: MANUAL DIFF FLAG NO
[2021-03-03 22:00] LABS: Basophils Percent Auto 0.3 % (0-2); Eosinophils Absolute Auto 0.2 X10*3/uL (0.0-0.4); Eosinophils Percent Auto 1.5 % (0-4); Hemoglobin 12.2 g/dl (12.0-16.0); Imm Gran Abs Auto 0.07 X10*3/uL (0.00-0.03); Imm Gran Pct Auto 0.5 % (0.0-0.4); Lymphocytes Absolute Auto 0.9 X10*3/uL (1.2-4.9); Lymphocytes Percent Auto 6.6 % (20-40); Mean Corpuscular HGB Conc 32.1 g/dl (31.0-35.0); Mean Corpuscular Hemoglobin 28.8 pg (27.0-33.0); Mean Corpuscular Volume 89.8 fL (80-98); Mean Platelet Volume 9.3 fL (9.4-12.3); Monocytes Absolute Auto 0.9 X10*3/uL (0.1-1.2); Neutrophils Absolute Auto 12.1 X10*3/uL (2.0-8.3); Neutrophils Percent Auto 85.1 % (45-73); Platelet Count 381 X10*3/uL (160-400); Red Blood Count 4.23 X10*6/uL (4.20-5.50); Red Cell Distribution Width 14.6 % (11.0-16.0); White Blood Count 14.2 X10*3/uL (4.8-10.8)
[2021-03-03 22:11] LABS: Anion Gap 12 (12-20); Blood Urea Nitrogen 17 mg/dL (9-16); Calcium 9.3 mg/dL (8.4-10.2); Carbon Dioxide 26 mmol/L (22-29); Chloride 101 mmol/L (96-108); Creatinine Clr Calc Pharmacy 110.8; Estimated Glomerular Filt Rate > 60; Glucose Random 125 mg/dL (60-115); Potassium 4.7 mmol/L (3.3-5.1); Sodium 134 mmol/L (135-145)
== END 2021-03-03 23:33 | disposition home or self-care (01) ==
PROVIDERS: Emergency Provider Emergency Medicine; PCP Internal Medicine
DX: I89.0 Lymphedema, not elsewhere classified (principal); R60.0 Localized edema; M79.605 Pain in left leg; M79.604 Pain in right leg; Z79.899 Other long term (current) drug therapy
CPT/HCPCS: 36415; 80048; 83605; 85025; 87040; 93970; 99283; 99284

== ENCOUNTER → 2021-03-09 13:36 | Outpatient (BNVA) | payer MEDICARE, SELFPAY | PROVIDERS: PCP Internal Medicine; Visit Provider Student in an Organized Health Care Education/Training Program | DX: M06.9 Rheumatoid arthritis, unspecified (principal) | CPT/HCPCS: Q3014 ==

== ENCOUNTER 2021-03-26 08:42 | Inpatient (IN) | payer MEDICARE, SELFPAY ==
[2021-03-26] VITALS (16 sets, daily range): BP systolic 124–238; BP diastolic 80–121; PULSE 40–100; RESP 12–20; TEMP 36–36.1; O2SAT 95–99; BMI 51.5
--- NOTE | ~2021-03-26 | CT_ITS ---
EXAMINATION: CT ANGIOGRAPHY CHEST WITH IV CONTRAST CT ANGIOGRAPHY ABDOMEN AND PELVIS WITH IV CONTRAST CLINICAL INFORMATION: Chest pain and abdominal pain. History of thoracic aortic aneurysm. COMPARISON: Chest CT from 09/11/2019. Noncontrast abdomen and pelvis CT from 03/26/2021. TECHNIQUE: Multidetector CT imaging examination of the chest, abdomen and pelvis was performed with intravenous administration of 100 mL Omnipaque 350. Images were acquired in the arterial phase of contrast administration. Note that no three-dimensional images were obtained. No images were sent to an independent workstation. Axial images are displayed at 0.6 mm and 5 mm slice thickness. Coronal and sagittal reformatted images were generated at the technologist's workstation and submitted for review. This CT examination was performed using dose optimization techniques as appropriate, variously including the following: *Automated exposure control *Adjustment of mA and/or kV according to patient size (this includes techniques or standardized protocols for targeted exams where dose is matched to indication/reason for exam; i.e. extremities or head) *Use of iterative reconstruction technique DLP: 1072 mGy-cm FINDINGS: CHEST - LOCALIZER IMAGES: Obese body habitus. LUNGS AND PLEURA: Trachea and central airways are widely patent and normal in caliber. Old small calcified granulomas of the posterior right upper lobe and posterior left lower lobe. No suspicious lung nodule or mass. No pulmonary edema, pneumothorax or pleural effusion. Chronic subpleural cystic lucencies (honeycombing changes) are observed in lower lung zones, stable compared to 09/11/2019. CARDIOVASCULAR: The heart size is normal. Mild atherosclerotic calcification of coronary arteries. No pericardial effusion. The chronically dilated ascending thoracic aorta is 4.2 cm transverse, 4.1 cm AP diameter at level right pulmonary artery. The aortic root is 3 cm. Distal to the takeoff of the left subclavian artery, the aortic arch is normal, 2.8 cm transverse diameter. Proximal and distal descending aorta are normal in caliber. No acute aortic injury. No intramural hematoma or dissection. Pulmonary arteries are normal in caliber. No embolic filling defects within the central vessels. MEDIASTINUM/LOWER NECK: The esophagus is unremarkable. The thyroid gland is partially included in the [id number]. An old, cystic-appearing nodule in the left thyroid lobe measures approximately 1 cm AP dimension. No clinically significant nodule is detected. No thyroid imaging follow-up is recommended. No mediastinal mass. LYMPHATICS: No pathologic sized axillary, hilar or mediastinal lymph nodes. CHEST WALL/BONES: Multilevel discovertebral degenerative change of the thoracic spine. Thoracic vertebra have well preserved height and alignment. No suspicious bone lesion. No chest wall mass. ABDOMEN AND PELVIS - HEPATOBILIARY: Diffuse hepatic steatosis. No focal hepatic lesion or intrahepatic bile duct dilatation. Gallbladder is surgically absent. PANCREAS: No acute abnormalities in the atrophied pancreas. No edema or peripancreatic fluid. SPLEEN: Normal size and attenuation. ADRENAL GLANDS: Normal. KIDNEYS AND URETERS: No nephrolithiasis or hydronephrosis. Simple cysts of the kidneys. Renal imaging follow-up is not recommended for simple cysts. There are left renal artery aneurysms (as noted on the abdomen CT performed earlier in the day at 10:00 AM). BOWEL AND PERITONEUM: No dilated bowel loops. No inflammatory changes along the gastrointestinal tract. There are diverticula of the colon without evidence of diverticulitis. No ascites or pneumoperitoneum. ABDOMINAL WALL: Again noted is a fat-containing abdominal wall hernia. VESSELS: Atherosclerotic calcification of the abdominal aorta and iliac arteries without aneurysm. No aortic dissection. No retroperitoneal hematoma. Small splenic artery aneurysm is 0.8 cm AP diameter. Again noted are the left renal artery aneurysms that measures 0.8 cm and 1.2 cm transverse diameter. LYMPH NODES: No pathologic sized lymph nodes in the abdomen or pelvis. No inguinal lymphadenopathy. BLADDER AND PELVIC VISCERA: Urinary bladder is normal. Uterus and adnexa are unremarkable. No pelvic free fluid. MUSCULOSKELETAL: No acute findings in the degenerated spine. Chronic L5-S1 degenerative disc disease with mild retrolisthesis of L5 on S1. CT/CT angio abdomen pelvis IMPRESSION: * No acute vascular abnormalities. The ascending thoracic aorta is mildly dilated (4.2 cm transverse diameter). No acute aortic injury. No thoracic intramural hematoma or dissection. There is atherosclerotic calcification of the abdominal aorta without abdominal aortic aneurysm. There are old splenic and renal artery aneurysms. * Colonic diverticulosis without diverticulitis. * Diffuse hepatic steatosis. * Fat-containing abdominal wall hernia.
--- NOTE | ~2021-03-26 | US_ITS ---
EXAMINATION: US VENOUS ULTRASOUND WITH DOPPLER LOWER EXTREMITY, BILATERAL CLINICAL INFORMATION: Increased d-dimer COMPARISON: May 2020 TECHNIQUE:. Exam is limited due to patient's body habitus. Ultrasound of the deep veins is performed from the hip to the calf with compression sonography and color and pulse Doppler assessment. Spectral analysis with color-flow imaging is performed. FINDINGS: RIGHT: There is normal venous compression and respiratory variation and augmented flow. The visualized common femoral vein, superficial femoral vein, profunda femoral vein, popliteal vein, and the trifurcation region shows no evidence of deep venous thrombosis. There is no significant popliteal fossa cyst. LEFT: There is normal venous compression and respiratory variation and augmented flow. The visualized common femoral vein, superficial femoral vein, profunda femoral vein, popliteal vein, and the trifurcation region shows no evidence of deep venous thrombosis. There is no significant popliteal fossa cyst. If the patient's symptoms persist, followup ultrasound in 5 days 7 days might be of value to exclude proximal propagation from a non-visualized calf vein. US/US venous duplex LE BI IMPRESSION: No DVT demonstrated in the both lower extremities.
--- NOTE | ~2021-03-26 | CT_ITS ---
EXAMINATION: CT ABDOMEN AND PELVIS WITH CONTRAST CLINICAL INFORMATION: Question bowel obstruction or ischemia. Abdominal pain. COMPARISON: Previous CT scans of the abdomen and pelvis from 03/26/2021 TECHNIQUE: Multidetector volumetric images were obtained from the superior aspect of the liver through the pubic symphysis following administration 100 mL of Omnipaque 350 intravenous contrast. Sagittal and coronal reformatted images were obtained on the technologist's workstation. Oral contrast: Yes This CT examination was performed using dose optimization techniques as appropriate, variously including the following: *Automated exposure control *Adjustment of mA and/or kV according to patient size (this includes techniques or standardized protocols for targeted exams where dose is matched to indication/reason for exam; i.e. extremities or head) *Use of iterative reconstruction technique DLP: 1239 mGy-cm FINDINGS: LUNG BASES: The there is new bilateral lower lobe dense consolidation with air bronchograms probably representing pneumonia. Visualized lung bases are unremarkable. LIVER, GALLBLADDER, AND BILIARY TREE: The liver is normal in size, shape, and attenuation. No focal hepatic lesion or biliary ductal dilatation is present. The gallbladder has been removed. PANCREAS: There is fatty infiltration or atrophic changes of the pancreas. The pancreas is otherwise unremarkable. SPLEEN: Unremarkable. ADRENAL GLANDS: Unremarkable. KIDNEYS AND URETERS: There are bilateral renal cysts. No imaging follow-up needed. Kidneys are otherwise unremarkable. BLADDER: There is a Georges catheter in the bladder. GASTROINTESTINAL TRACT: There is a nasogastric tube in the stomach. There is a some fluid seen in the stomach. There are slightly distended fluid-filled loops of small bowel. There is no caliber change to suggest obstruction. There is diverticulosis of the colon. No evidence of diverticulitis is seen. There is new ascites seen in the left side of the abdomen in the small bowel mesentery and laterally along the paracolic gutter. No pneumatosis, mesenteric or portal vein air is seen. No bowel wall edema is seen. There is no free air. ABDOMINAL WALL: There is a large umbilical hernia containing fat. LYMPH NODES: Normal. VASCULAR: There is evidence of atherosclerotic disease. The celiac axis and SMA are patent. The SMV is patent. There are left renal and splenic artery aneurysm that are stable. PELVIC VISCERA: Unremarkable. OSSEOUS STRUCTURES: There are degenerative changes of the spine and hip joints. CT/CT abdomen pelvis w con IMPRESSION: No evidence of obstruction. New small bowel ileus and ascites. Possible small bowel ischemia should be considered. No evidence of pneumatosis, mesenteric or portal vein air. Mild diverticulosis of the colon. 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 Renal cysts. New bilateral lower lobe consolidation probably representing pneumonia.
--- NOTE | ~2021-03-26 | XR_ITS ---
EXAMINATION: XR CHEST CLINICAL INFORMATION: Check ET tube placement COMPARISON: Chest radiograph 03/28/2021 TECHNIQUE: Frontal view of the chest was obtained. FINDINGS: The tip of the ET tube is not optimally seen, but it most likely 3 cm above the more. An NG tube is present with its tip coiled in the stomach and gaseous distention has decreased. Again seen is an elevated left hemidiaphragm with left basilar atelectasis. Right lung is unremarkable. XR/XR chest 1V IMPRESSION: ET tube about 3 cm above the more.
--- NOTE | ~2021-03-26 | XR_ITS ---
EXAMINATION: XR CHEST CLINICAL INFORMATION: Triple-lumen catheter placement COMPARISON: Chest radiograph 03/26/2021 TECHNIQUE: Frontal view of the chest was obtained. FINDINGS: Since the prior study, the lungs appear hypoinflated. A right IJ triple-lumen catheter is present with its tip in good position in the proximal right atrium. No pneumothorax is seen. Bibasilar atelectasis present. XR/XR chest 1V IMPRESSION: Right jugular triple-lumen catheter placed in good position without complication.
--- NOTE | ~2021-03-26 | XR_ITS ---
EXAMINATION: XR CHEST CLINICAL INFORMATION: Leg edema COMPARISON: Previous chest x-ray December [address] August 2019 TECHNIQUE: 2 views of the chest were obtained. FINDINGS: The cardiac silhouette does not appear enlarged. The ascending thoracic aorta appears prominent but stable. Hilar and mediastinal contours are otherwise unremarkable. The lungs are clear. There is no pleural effusion or pneumothorax. There are degenerative changes of the spine. XR/XR chest 2V IMPRESSION: Stable prominence of the ascending thoracic aorta. No evidence for acute disease in the chest.
--- NOTE | ~2021-03-26 | CT_ITS ---
EXAMINATION: CT ABDOMEN AND PELVIS WITHOUT CONTRAST CLINICAL INFORMATION: Generalized abdominal pain, constipation and vomiting COMPARISON: Previous CT of the abdomen and pelvis November 2017 and renal ultrasound August 2020 TECHNIQUE: Multidetector volumetric imaging was performed from the superior aspect of the liver through the pubic symphysis. Sagittal and coronal reformatted images were obtained on the technologist's workstation. This CT examination was performed using dose optimization techniques as appropriate, variously including the following: *Automated exposure control *Adjustment of mA and/or kV according to patient size (this includes techniques or standardized protocols for targeted exams where dose is matched to indication/reason for exam; i.e. extremities or head) *Use of iterative reconstruction technique DLP: 1581 mGy-cm FINDINGS: LUNG BASES: The visualized lung bases are unremarkable. LIVER, GALLBLADDER, AND BILIARY TREE: The liver is normal in size, shape, and attenuation. No focal hepatic lesion or biliary ductal dilatation is present. The gallbladder has been removed. PANCREAS: There is fatty infiltration of the pancreas. SPLEEN: There is a 9 mm calcification in the splenic hilum with lucent centers suggestive of a splenic artery aneurysm. ADRENAL GLANDS: Unremarkable. KIDNEYS AND URETERS: There are bilateral low-attenuation renal lesions probably representing cysts. These do not appear appreciably changed. No follow-up is needed. There are 2 calcifications seen in the left renal hilum with lucent centers measuring 0.9 and 1.4 cm suggestive of left renal artery aneurysms. BLADDER: Not optimally distended. GASTROINTESTINAL TRACT: There is stool in the proximal colon questionable for constipation. There is diverticulosis of the colon. No evidence of diverticulitis is seen. The small and large bowel is otherwise unremarkable. The appendix is not seen. The stomach is unremarkable. ABDOMINAL WALL: There is an umbilical hernia containing fat. LYMPH NODES: Normal. VASCULAR: There is evidence of atherosclerotic disease. 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 PELVIC VISCERA: Unremarkable. OSSEOUS STRUCTURES: There are degenerative changes of the spine and hip joints. CT/CT abdomen pelvis wo con IMPRESSION: Diverticulosis. No evidence of diverticulitis. Stool in the right colon questionable for mild constipation. Bilateral renal cysts. 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 These do not appear appreciably changed from 2018. Large umbilical hernia containing fat.
--- NOTE | 2021-03-26 07:36 | ECG_ITS ---
Test Reason : REPEAT, DIZZINESS Blood Pressure : / mmHG Vent. Rate : 087 BPM Atrial Rate : 087 BPM P-R Int : 164 ms QRS Dur : 096 ms QT Int : 390 ms P-R-T Axes : 055 011 048 degrees QTc Int : 469 ms Sinus rhythm with frequent Premature ventricular complexes in a pattern of bigeminy Otherwise normal ECG When compared with ECG of 26-MAR-2021 11:10, Premature ventricular complexes are now Present Vent. rate has increased BY 29 BPM QT has lengthened Referred By: Pamela Wilson Electronically Signed By:CHRIS OROZCO
--- NOTE | 2021-03-26 09:49 | ED.ABDPAIN ---
HPI - Abdominal Pain General Chief Complaint: Abdominal Pain <Pamela Wilson PA-C - Last Filed: 03/26/21 18:02> Stated Complaint: abd pain, vomiting <Pamela Wilson PA-C - Last Filed: 03/26/21 18:02> Time Seen by Provider: 03/26/21 09:29 <Pamela Wilson PA-C - Last Filed: 03/26/21 18:02> Source: patient and family () <SANTOS Kelly Last Filed: 03/26/21 18:02> Mode of arrival: ambulatory <SANTOS Kelly Last Filed: 03/26/21 18:02> Limitations: no limitations <SANTOS Kelly Last Filed: 03/26/21 18:02> History of Present Illness HPI narrative: Patient is a 70-year-old female with a significant past medical history including RA with pulmonary fibrosis, aneurysm of the left renal artery, 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 She is also complaining of generalized abdominal pain, constipation and back pain but denies fevers. She states about a month ago she started having bilateral leg swelling, she went to a education adviser prescribed her prednisone which she is currently weaning herself off of, she did not take her dose this morning of 15 mg. Then she went to her primary care doctor who started her on Bumex 3 days ago, she has been taking 1 mg per day but started with 2 mg yesterday.She states she ate pasta with 2 meatballs and some clam chowder last evening and a few minutes later vomited it all up, her did not share her meal and he did not get sick. She states she was not really hungry before that but had no other symptoms. She is concerned about her leg swelling as well as vomiting. Patient states she did not take her blood pressure medication last night. She states she does have her aorta measured annually through her PCP. She also had a bilateral venous ultrasound to rule out a DVT on 03/03/21 <SANTOS Kelly Last Filed: 03/26/21 18:02> Related Data Home Medications: Home Medications Medication Instructions Recorded Confirmed ascorbic acid (vitamin C) 500 mg See Rx Instructions .ROUTE .COMPLEX 04/19/20 03/27/21 capsule calcium carbonate 600 mg calcium 600 mg PO DAILY 04/19/20 03/27/21 (1,500 mg) tablet (Calcium) cholecalciferol (vitamin D3) 25 25 mcg PO DAILY 04/19/20 03/27/21 mcg (1,000 unit) capsule coenzyme Q10 10 mg capsule (Co 10 mg PO DAILY cap 04/19/20 03/27/21 Q-10) cyanocobalamin (vitamin B-12) 1,000 mcg PO DAILY 04/19/20 03/27/21 1,000 mcg capsule multivitamin 1 tab PO DAILY 04/19/20 03/27/21 omega-3 fatty acids 1,000 mg 1,000 mg PO DAILY 04/19/20 03/27/21 capsule ciclopirox 0.77 % topical cream See Protocol TOPICAL USEASDIRECTD 05/12/20 03/27/21 (Loprox (as olamine)) ketoconazole 2 % topical cream See Rx Instructions .ROUTE .COMPLEX 05/12/20 03/27/21 triamcinolone acetonide 0.1 % See Rx Instructions .ROUTE .COMPLEX 05/12/20 03/27/21 topical cream glucosamine sulf NaCl-chondroitin See Rx Instructions .ROUTE .COMPLEX 09/06/20 03/27/21 sulf sodium 750 mg-400 mg oral pack ipratropium 0.5 mg-albuterol 3 mg 3 ml INHALATION Q4-6H PRN 09/06/20 03/27/21 (2.5 mg base)/3 mL nebulization soln zinc 22 mg tablet 20 mg PO DAILY tab 10/06/20 03/27/21 prednisone 10 mg tablet 20 mg PO DAILY 03/21/21 03/27/21 gabapentin 100 mg capsule 1 cap PO BEDTIME 03/27/21 03/27/21 Previous Rx's Medication Instructions Recorded losartan 50 mg tablet 50 mg PO DAILY #90 tab 08/02/20 Ventolin HFA 90 mcg/actuation 2 puff INHALATION Q4-6H PRN #18 g 08/24/20 aerosol inhaler (albuterol sulfate) NS adalimumab 40 mg/0.4 mL See Rx Instructions SUBCUT 11/19/20 subcutaneous syringe kit .COMPLEX #2 ea (Humira(CF)) prednisone 5 mg tablet 5 mg PO DAILY #90 tab 01/14/21 polyethylene glycol 3350 17 17 g PO DAILY PRN #238 g 01/31/21 gram/dose oral powder (Miralax) hydrocortisone 2.5 % topical cream 1 appl ID BID-QID PRN #30 g 02/28/21 with perineal applicator (Proctosol HC) bumetanide 1 mg tablet 1 mg PO DAILY 30 Days #30 tab 03/21/21 nitrofurantoin 100 mg PO Q12H 5 Days #10 cap 03/26/21 monohydrate/macrocrystals 100 mg capsule (Macrobid) polyethylene glycol 3350 17 17 g PO DAILY PRN #119 g 03/26/21 gram/dose oral powder (Miralax) <Pamela Wilson PA-C - Last Filed: 03/26/21 18:02> Allergies/Adverse Reactions: Allergies Allergy/AdvReac Type Severity Reaction Status Date / Time amlodipine Allergy Unknown Unknown Verified 03/21/21 15:39 atenolol Allergy Unknown Unknown Verified 03/21/21 15:39 atorvastatin [Lipitor] Allergy Unknown Unknown Verified 03/21/21 15:39 ciprofloxacin [Cipro] Allergy Unknown Unknown Verified 03/21/21 15:39 Doxycycline Hyclate Allergy Unknown Unknown Verified 03/21/21 15:39 hydrochlorothiazide Allergy Unknown Unknown Verified 03/21/21 15:39 Iodinated Contrast Media Allergy Unknown DIFFICULTY Verified 03/21/21 15:39 [CONTRAST, IV] BREATHING levofloxacin [Levaquin] Allergy Unknown Unknown Verified 03/21/21 15:39 lisinopril Allergy Unknown Unknown Verified 03/21/21 15:39 penicillin V Allergy Unknown rash Verified 03/21/21 15:39 Penicillins Allergy Unknown RASH, DIFF Verified 03/21/21 15:39 BREATHING TO ALL CILLIN DRUGS pseudoephedrine [Sudafed] Allergy Unknown Unknown Verified 03/21/21 15:39 strawberry Allergy Unknown Unknown Verified 03/21/21 15:39 Sulfa (Sulfonamide Allergy Unknown DIFFICULTY Verified 03/21/21 15:39 Antibiotics) BREATHING, [SULFA (SULFONAMIDE HIVES ANTIBIOTICS)] Tetracyclines [TETRACYCLINES] Allergy Unknown ? RXN Verified 03/21/21 15:39 valsartan [Diovan] Allergy Unknown Unknown Verified 03/21/21 15:39 verapamil Allergy Unknown Unknown Verified 03/21/21 15:39 <Pamela Wilson PA-C - Last Filed: 03/26/21 18:02> Physical Exam Vital Signs: Vital Signs: Last Vital Signs Temp 97.0 F 03/27/21 11:18 Pulse 86 03/27/21 11:18 Resp 18 03/27/21 11:18 BP 133/88 03/27/21 11:18 Pulse Ox 96 03/27/21 11:18 Body Mass Index 51.5 <Pamela Wilson PA-C - Last Filed: 03/26/21 18:02> Vital Signs: Last Vital Signs Temp 97.0 F 03/27/21 11:18 Pulse 86 03/27/21 11:18 Resp 18 03/27/21 11:18 BP 133/88 03/27/21 11:18 Pulse Ox 96 03/27/21 11:18 Body Mass Index 51.5 <GENESIS Agarwal-BC - Last Filed: 03/26/21 21:05> Vital Signs: Last Vital Signs Temp 97.0 F 03/27/21 11:18 Pulse 86 03/27/21 11:18 Resp 18 03/27/21 11:18 BP 133/88 03/27/21 11:18 Pulse Ox 96 03/27/21 11:18 Body Mass Index 51.5 <Michael De Los Santos MD - Last Filed: 03/27/21 14:51> Const: General: cooperative, healthy appearing, comfortable, no acute distress and well developed <Pamela Wilson PA-C - Last Filed: 03/26/21 18:02> Orientation/consciousness: patient oriented x3 <Pamela Wilson PA-C - Last Filed: 03/26/21 18:02> Limitations: no limitations <Pamela Wilson PA-C - Last Filed: 03/26/21 18:02> HENMT: Head: Yes normal to inspection <Pamela Wilson PA-C - Last Filed: 03/26/21 18:02> Eyes: General: appearance normal, both eyes and all related structures <Pamela Wilson PA-C - Last Filed: 03/26/21 18:02> Neck: Neck: Yes normal visual inspection and Yes full ROM <Pamela Wilson PA-C - Last Filed: 03/26/21 18:02> Resp: Effort & Inspection: normal respiratory effort and able to speak in complete sentences <Pamela Wilson PA-C Victoriano Last Filed: 03/26/21 18:02> Auscultation: clear to auscultation bilaterally <Pamela Wilson PA-C - Last Filed: 03/26/21 18:02> Cardio: Rate: regular rate <Pamela Wilson PA-C - Last Filed: 03/26/21 18:02> Rhythm: regular rhythm <Pamela Wilson PA-C Victoriano Last Filed: 03/26/21 18:02> Heart sounds: normal S1 and S2 <Pamela Wilson PA-C - Last Filed: 03/26/21 18:02> GI: Inspection: Yes normal to inspection <Pamela Wilson PA-C - Last Filed: 03/26/21 18:02> Palpation (GI): Soft to palpation and Tenderness to palpation present (GI) in the epigastrum, in the LLQ and in the RLQ <Pamela Wilson PA-C Victoriano Last Filed: 03/26/21 18:02> Skin: General skin exam: no rashes or lesions noted <Pamela Wilson PA-C - Last Filed: 03/26/21 18:02> Neuro: General: patient oriented x3 <Pamela Wilson PA-C Victoriano Last Filed: 03/26/21 18:02> Extrem: General: Yes normal to inspection, No no calf tenderness (bilateral calf tenderness) and Yes edema (1+ pitting) <Pamela Wilson PA-C Victoriano Last Filed: 03/26/21 18:02> Course Course Course Narrative: Patient is a 70-year-old female with a significant past medical history including RA with pulmonary fibrosis, aneurysm of the left renal artery, 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 VSS except for elevated BP of 177/110. However patient states she did not take her blood pressure medication last night. exam reveals abdominal pain in the RLQ, L LQ in epigastric. Will get basic labs, D-dimer, troponin, UA, BNP, EKG and CT of the abdomen and pelvis. Will give Toradol for pain control. Will place on cafeteria monitor to monitor BP. We will p.o. challenge patient as well. <Pamela Wilson PA-C - Last Filed: 03/26/21 18:02> Reevaluation(s) Reevaluation #1: Nothing acute on chest x-ray or abdominal CT scan except for some mild constipation on the right lower quadrant. Patient has a white count of 13.8 but this could be from the vomiting. BUN elevated at 48 but creatinine 1.11 which seems to be elevated from her baseline. This could be from a little bit of dehydration. Not going to give patient IV fluids so as not to fluid overload her as long as she can tolerate p.o.. If she cannot tolerate p.o., I will give a gentle fluid bolus. Lipase negative UA pending, D-dimer pending, EKG pending, troponin pending <Pamela Wilson PA-C - Last Filed: 03/26/21 18:02> Time: 10:54 <Pamela Wilson PA-C - Last Filed: 03/26/21 18:02> Reevaluation #2: D-dimer elevated 1876, troponin slightly elevated at 19.1, will repeat in 3 hours, patient stating she is still having abdominal pains with some flatulence, will give simethicone to help her get rid of the gas, patient was able tolerate a small amount of water. EKG sinus bradycardia at 58 beats per minute no ST changes or T-wave changes. Patient actively vomiting, will give IV Zofran and a gentle fluid bolus. UA pending, US pending <Pamela Wilson PA-C - Last Filed: 03/26/21 18:02> Time: 12:33 <SANTOS Kelly Last Filed: 03/26/21 18:02> Reevaluation #3: Patient still complaining of abdominal pain, will give 0.5mg IV Dilaudid with Reglan Ultrasound showed no DVT in bilateral lower extremities. BNP negative, repeat troponin 21.8, initial was 19.1. UA shows some white cells and bacteria in the urine, and it was hazy, will treat for UTI <Pamela Wilson PA-C - Last Filed: 03/26/21 18:02> Time: 14:23 <Pamela Wilson PA-C - Last Filed: 03/26/21 18:02> Additional Reevaluation(s): COVID negative. Patient still hypertensive, will treat her blood pressure as it is up to 226/106, patient has no headache but admits to some dizziness. will give 5mg hydralazine to start. Patient's blood pressure coming down, now 209/97. Concern for enlarging aneurysm, dissection or similar, will get CT of abdomen pelvis and chest with contrast. Reviewed with patient that her dad was allergic to IV contrast. She has never had IV contrast and therefore has never had a reaction. I will order IV Solu-Medrol and IV Benadryl just in case. Reviewed with Dr. Garcia, he was at the bedside during this discussion. He agreed with assessment and plan <Pamela Wilson PA-C - Last Filed: 03/26/21 18:02> Consultations Consultation #1: This is not a consultation this is re-evaluation. This patient was signed out to me by RONI CT shows no acute vascular abnormalities. The ascending thoracic aorta is mildly dilated at 4.2 cm transverse diameter. No acute aortic injury note thoracic intramural hematoma or dissection. Patient has colonic diverticulosis without diverticulitis, diffuse hepatic steatosis, and fat containing abdominal wall hernia. We will cancel lactic acid and 2nd troponin. Tried multiple times and patient is very difficult stick. Patient is most likely dehydrated and has not moved her bowels normally. BP most likely elevated due to abdominal discomfort. However there is no true understanding on where is the pain coming from. Questioning constipation or gas trapping. Will give her magnesium citrate. I will give her clonidine for her blood pressure. <Nayeli Hdez, PERSONAL [employer]ES SALES EXECUTIVE-BC - Last Filed: 03/26/21 21:05> Consultation #2: This is again re-evaluation not consultation. Patient vomited after drinking Mag citrate. I will give her Zofran. reports that she vomited clonidine. I will reorder another dose. Sign out to Dr. De Los Santos <Nayeli Hdez, PERSONAL LINES SALES EXECUTIVE-BC - Last Filed: 03/26/21 21:05> Time: 23:17 <Michael De Los Santos MD - Last Filed: 03/27/21 14:51> Consultation #3: Re-evaluation. Taken on sign-out. Patient is unable to have bowel movement. Will reinsert an IV did start IV hydration as she clinically appears dehydrated. Labetalol for blood pressure control despite on unclear allergy to atenolol. Fleet enema. Dilaudid. Zofran. Will attempt to make patient comfortable. She will clearly need to be hospitalized due to intractable vomiting and undifferentiated abdominal pain. Will need re-evaluation and possible repeat imaging if she does not improve. 1:30 a.m.. Repeat Dilaudid ordered. Patient did have bowel movement after enema. No relief of symptoms however Blood pressure has improved after labetalol. It is now 174/77. Her 1st troponin was 19.1 and her 2nd troponin was 21.1. Her EKG was normal. This is most likely related to her severe hypertension. <Michael De Los Santos MD - Last Filed: 03/27/21 14:51> MDM - Abdominal Pain Medical Records Attestation: I reviewed the patient's medical records. <Pamela Wilson PA-C - Last Filed: 03/26/21 18:02> Lab Data Attestation: I reviewed the patient's lab results. <Pamela Wilson PA-C - Last Filed: 03/26/21 18:02> Result diagrams: : 03/27/21 12:15 03/27/21 12:15 <Pamela Wilson PA-C - Last Filed: 03/26/21 18:02> Labs: Lab Results 03/26/21 03/26/21 03/26/21 Range/Units 10:19 10:19 10:19 WBC 13.8 H (4.8-10.8) X10*3/uL RBC 5.00 (4.20-5.50) X10*6/uL Hgb 14.1 (12.0-16.0) g/dl Hct 45.4 (37-47) % MCV 90.8 (80-98) fL MCH 28.2 (27.0-33.0) pg MCHC 31.1 (31.0-35.0) g/dl RDW 15.7 (11.0-16.0) % Plt Count 341 (160-400) X10*3/uL MPV 9.9 (9.4-12.3) fL Immature Gran % (Auto) 0.4 (0.0-0.4) % Neut % (Auto) 79.5 H (45-73) % Lymph % (Auto) 11.0 L (20-40) % [place] % (Auto) 8.0 (2-11) % Eos % (Auto) 0.9 (0-4) % Baso % (Auto) 0.2 (0-2) % Lymph # (Auto) 1.5 (1.2-4.9) X10*3/uL [place] # (Auto) 1.1 (0.1-1.2) X10*3/uL Eos # (Auto) 0.1 (0.0-0.4) X10*3/uL Baso # (Auto) 0.0 (0.0-0.2) X10*3/uL Abs Immat Gran (auto) 0.05 H (0.00-0.03) X10*3/uL Absolute Neuts (auto) 11.0 H (2.0-8.3) X10*3/uL Absolute Nucleated RBC 0.000 (0.0-0.012) X10*3/uL Nucleated RBC % (auto) 0.0 (0.0-0.2) /100WBC D-Dimer NG/ML Sodium 141 (135-145) mmol/L Potassium 4.4 (3.3-5.1) mmol/L Chloride 102 (96-108) mmol/L Carbon Dioxide 29 (22-29) mmol/L Anion Gap 14 (12-20) BUN 48 H D (9-16) mg/dL Creatinine 1.11 (0.5-1.4) mg/dL Estim Creat Clear Calc 65.9 Estimated GFR 49 Random Glucose 130 H (60-115) mg/dL Calcium 10.5 H D (8.4-10.2) mg/dL Total Bilirubin 0.7 (0.0-1.0) mg/dL Direct Bilirubin 0.2 (0.0-0.5) mg/dL AST 19 (5-31) U/L ALT 18 (0-31) U/L Alkaline Phosphatase 108 D (39-117) U/L Troponin I High Sens 19.1 H* (<3.5-17.0) ng/L B-Natriuretic Peptide (<100) pg/mL Total Protein 7.4 (6.5-8.0) g/dL Albumin 3.7 (3.5-5.0) g/dL Lipase 74 (8-78) U/L Urine Color Urine Appearance Urine pH (5.0-8.0) Ur Specific [place] (1.005-1.025) Urine Protein (NEG-TRACE) MG/DL Urine Glucose (UA) (NEG) MG/DL Urine Ketones (NEG) MG/DL Urine Blood (NEG) Urine Nitrite (NEG) Ur Leukocyte Esterase (NEG) Urine RBC (0) /HPF Urine WBC (0-4) /HPF Ur Squamous Epith Cells /LPF Urine Bacteria /LPF Urine Mucus /LPF COVID-19 (SUZIE) (Negative) COVID-19 Clin Com 03/26/21 03/26/21 03/26/21 Range/Units 11:04 13:24 13:24 WBC (4.8-10.8) X10*3/uL RBC (4.20-5.50) X10*6/uL Hgb (12.0-16.0) g/dl Hct (37-47) % MCV (80-98) fL MCH (27.0-33.0) pg MCHC (31.0-35.0) g/dl RDW (11.0-16.0) % Plt Count (160-400) X10*3/uL MPV (9.4-12.3) fL Immature Gran % (Auto) (0.0-0.4) % Neut % (Auto) (45-73) % Lymph % (Auto) (20-40) % [place] % (Auto) (2-11) % Eos % (Auto) (0-4) % Baso % (Auto) (0-2) % Lymph # (Auto) (1.2-4.9) X10*3/uL [place] # (Auto) (0.1-1.2) X10*3/uL Eos # (Auto) (0.0-0.4) X10*3/uL Baso # (Auto) (0.0-0.2) X10*3/uL Abs Immat Gran (auto) (0.00-0.03) X10*3/uL Absolute Neuts (auto) (2.0-8.3) X10*3/uL Absolute Nucleated RBC (0.0-0.012) X10*3/uL Nucleated RBC % (auto) (0.0-0.2) /100WBC D-Dimer 1876 NG/ML Sodium (135-145) mmol/L Potassium (3.3-5.1) mmol/L Chloride (96-108) mmol/L Carbon Dioxide (22-29) mmol/L Anion Gap (12-20) BUN (9-16) mg/dL Creatinine (0.5-1.4) mg/dL Estim Creat Clear Calc Estimated GFR Random Glucose (60-115) mg/dL Calcium (8.4-10.2) mg/dL Total Bilirubin (0.0-1.0) mg/dL Direct Bilirubin (0.0-0.5) mg/dL AST (5-31) U/L ALT (0-31) U/L Alkaline Phosphatase (39-117) U/L Troponin I High Sens 21.8 H* (<3.5-17.0) ng/L B-Natriuretic Peptide (<100) pg/mL Total Protein (6.5-8.0) g/dL Albumin (3.5-5.0) g/dL Lipase (8-78) U/L Urine Color YELLOW Urine Appearance HAZY Urine pH 6.0 (5.0-8.0) Ur Specific [place] 1.025 (1.005-1.025) Urine Protein TRACE (NEG-TRACE) MG/DL Urine Glucose (UA) NEG (NEG) MG/DL Urine Ketones NEG (NEG) MG/DL Urine Blood 1+ H (NEG) Urine Nitrite NEG (NEG) Ur Leukocyte Esterase NEG (NEG) Urine RBC 1-4 (0) /HPF Urine WBC 1-4 (0-4) /HPF Ur Squamous Epith Cells 2+ /LPF Urine Bacteria TRACE /LPF Urine Mucus 2+ /LPF COVID-19 (SUZIE) (Negative) COVID-19 Clin Com 03/26/21 03/26/21 Range/Units 13:30 15:12 WBC (4.8-10.8) X10*3/uL RBC (4.20-5.50) X10*6/uL Hgb (12.0-16.0) g/dl Hct (37-47) % MCV (80-98) fL MCH (27.0-33.0) pg MCHC (31.0-35.0) g/dl RDW (11.0-16.0) % Plt Count (160-400) X10*3/uL MPV (9.4-12.3) fL Immature Gran % (Auto) (0.0-0.4) % Neut % (Auto) (45-73) % Lymph % (Auto) (20-40) % [place] % (Auto) (2-11) % Eos % (Auto) (0-4) % Baso % (Auto) (0-2) % Lymph # (Auto) (1.2-4.9) X10*3/uL [place] # (Auto) (0.1-1.2) X10*3/uL Eos # (Auto) (0.0-0.4) X10*3/uL Baso # (Auto) (0.0-0.2) X10*3/uL Abs Immat Gran (auto) (0.00-0.03) X10*3/uL Absolute Neuts (auto) (2.0-8.3) X10*3/uL Absolute Nucleated RBC (0.0-0.012) X10*3/uL Nucleated RBC % (auto) (0.0-0.2) /100WBC D-Dimer NG/ML Sodium (135-145) mmol/L Potassium (3.3-5.1) mmol/L Chloride (96-108) mmol/L Carbon Dioxide (22-29) mmol/L Anion Gap (12-20) BUN (9-16) mg/dL Creatinine (0.5-1.4) mg/dL Estim Creat Clear Calc Estimated GFR Random Glucose (60-115) mg/dL Calcium (8.4-10.2) mg/dL Total Bilirubin (0.0-1.0) mg/dL Direct Bilirubin (0.0-0.5) mg/dL AST (5-31) U/L ALT (0-31) U/L Alkaline Phosphatase (39-117) U/L Troponin I High Sens (<3.5-17.0) ng/L B-Natriuretic Peptide 22 (<100) pg/mL Total Protein (6.5-8.0) g/dL Albumin (3.5-5.0) g/dL Lipase (8-78) U/L Urine Color Urine Appearance Urine pH (5.0-8.0) Ur Specific [place] (1.005-1.025) Urine Protein (NEG-TRACE) MG/DL Urine Glucose (UA) (NEG) MG/DL Urine Ketones (NEG) MG/DL Urine Blood (NEG) Urine Nitrite (NEG) Ur Leukocyte Esterase (NEG) Urine RBC (0) /HPF Urine WBC (0-4) /HPF Ur Squamous Epith Cells /LPF Urine Bacteria /LPF Urine Mucus /LPF COVID-19 (SUZIE) Negative (Negative) COVID-19 Clin Com See Note <Pamela Wilson PA-C - Last Filed: 03/26/21 18:02> Lab Results 03/26/21 03/26/21 03/26/21 Range/Units 10:19 10:19 10:19 WBC 13.8 H (4.8-10.8) X10*3/uL RBC 5.00 (4.20-5.50) X10*6/uL Hgb 14.1 (12.0-16.0) g/dl Hct 45.4 (37-47) % MCV 90.8 (80-98) fL MCH 28.2 (27.0-33.0) pg MCHC 31.1 (31.0-35.0) g/dl RDW 15.7 (11.0-16.0) % Plt Count 341 (160-400) X10*3/uL MPV 9.9 (9.4-12.3) fL Immature Gran % (Auto) 0.4 (0.0-0.4) % Neut % (Auto) 79.5 H (45-73) % Lymph % (Auto) 11.0 L (20-40) % [place] % (Auto) 8.0 (2-11) % Eos % (Auto) 0.9 (0-4) % Baso % (Auto) 0.2 (0-2) % Lymph # (Auto) 1.5 (1.2-4.9) X10*3/uL [place] # (Auto) 1.1 (0.1-1.2) X10*3/uL Eos # (Auto) 0.1 (0.0-0.4) X10*3/uL Baso # (Auto) 0.0 (0.0-0.2) X10*3/uL Abs Immat Gran (auto) 0.05 H (0.00-0.03) X10*3/uL Absolute Neuts (auto) 11.0 H (2.0-8.3) X10*3/uL Absolute Nucleated RBC 0.000 (0.0-0.012) X10*3/uL Nucleated RBC % (auto) 0.0 (0.0-0.2) /100WBC D-Dimer NG/ML Sodium 141 (135-145) mmol/L Potassium 4.4 (3.3-5.1) mmol/L Chloride 102 (96-108) mmol/L Carbon Dioxide 29 (22-29) mmol/L Anion Gap 14 (12-20) BUN 48 H D (9-16) mg/dL Creatinine 1.11 (0.5-1.4) mg/dL Estim Creat Clear Calc 65.9 Estimated GFR 49 Random Glucose 130 H (60-115) mg/dL Calcium 10.5 H D (8.4-10.2) mg/dL Total Bilirubin 0.7 (0.0-1.0) mg/dL Direct Bilirubin 0.2 (0.0-0.5) mg/dL AST 19 (5-31) U/L ALT 18 (0-31) U/L Alkaline Phosphatase 108 D (39-117) U/L Troponin I High Sens 19.1 H* (<3.5-17.0) ng/L B-Natriuretic Peptide (<100) pg/mL Total Protein 7.4 (6.5-8.0) g/dL Albumin 3.7 (3.5-5.0) g/dL Lipase 74 (8-78) U/L Urine Color Urine Appearance Urine pH (5.0-8.0) Ur Specific [place] (1.005-1.025) Urine Protein (NEG-TRACE) MG/DL Urine Glucose (UA) (NEG) MG/DL Urine Ketones (NEG) MG/DL Urine Blood (NEG) Urine Nitrite (NEG) Ur Leukocyte Esterase (NEG) Urine RBC (0) /HPF Urine WBC (0-4) /HPF Ur Squamous Epith Cells /LPF Urine Bacteria /LPF Urine Mucus /LPF COVID-19 (SUZIE) (Negative) COVID-19 Clin Com 03/26/21 03/26/21 03/26/21 Range/Units 11:04 13:24 13:24 WBC (4.8-10.8) X10*3/uL RBC (4.20-5.50) X10*6/uL Hgb (12.0-16.0) g/dl Hct (37-47) % MCV (80-98) fL MCH (27.0-33.0) pg MCHC (31.0-35.0) g/dl RDW (11.0-16.0) % Plt Count (160-400) X10*3/uL MPV (9.4-12.3) fL Immature Gran % (Auto) (0.0-0.4) % Neut % (Auto) (45-73) % Lymph % (Auto) (20-40) % [place] % (Auto) (2-11) % Eos % (Auto) (0-4) % Baso % (Auto) (0-2) % Lymph # (Auto) (1.2-4.9) X10*3/uL [place] # (Auto) (0.1-1.2) X10*3/uL Eos # (Auto) (0.0-0.4) X10*3/uL Baso # (Auto) (0.0-0.2) X10*3/uL Abs Immat Gran (auto) (0.00-0.03) X10*3/uL Absolute Neuts (auto) (2.0-8.3) X10*3/uL Absolute Nucleated RBC (0.0-0.012) X10*3/uL Nucleated RBC % (auto) (0.0-0.2) /100WBC D-Dimer 1876 NG/ML Sodium (135-145) mmol/L Potassium (3.3-5.1) mmol/L Chloride (96-108) mmol/L Carbon Dioxide (22-29) mmol/L Anion Gap (12-20) BUN (9-16) mg/dL Creatinine (0.5-1.4) mg/dL Estim Creat Clear Calc Estimated GFR Random Glucose (60-115) mg/dL Calcium (8.4-10.2) mg/dL Total Bilirubin (0.0-1.0) mg/dL Direct Bilirubin (0.0-0.5) mg/dL AST (5-31) U/L ALT (0-31) U/L Alkaline Phosphatase (39-117) U/L Troponin I High Sens 21.8 H* (<3.5-17.0) ng/L B-Natriuretic Peptide (<100) pg/mL Total Protein (6.5-8.0) g/dL Albumin (3.5-5.0) g/dL Lipase (8-78) U/L Urine Color YELLOW Urine Appearance HAZY Urine pH 6.0 (5.0-8.0) Ur Specific [place] 1.025 (1.005-1.025) Urine Protein TRACE (NEG-TRACE) MG/DL Urine Glucose (UA) NEG (NEG) MG/DL Urine Ketones NEG (NEG) MG/DL Urine Blood 1+ H (NEG) Urine Nitrite NEG (NEG) Ur Leukocyte Esterase NEG (NEG) Urine RBC 1-4 (0) /HPF Urine WBC 1-4 (0-4) /HPF Ur Squamous Epith Cells 2+ /LPF Urine Bacteria TRACE /LPF Urine Mucus 2+ /LPF COVID-19 (SUZIE) (Negative) COVID-19 Clin Com 03/26/21 03/26/21 Range/Units 13:30 15:12 WBC (4.8-10.8) X10*3/uL RBC (4.20-5.50) X10*6/uL Hgb (12.0-16.0) g/dl Hct (37-47) % MCV (80-98) fL MCH (27.0-33.0) pg MCHC (31.0-35.0) g/dl RDW (11.0-16.0) % Plt Count (160-400) X10*3/uL MPV (9.4-12.3) fL Immature Gran % (Auto) (0.0-0.4) % Neut % (Auto) (45-73) % Lymph % (Auto) (20-40) % [place] % (Auto) (2-11) % Eos % (Auto) (0-4) % Baso % (Auto) (0-2) % Lymph # (Auto) (1.2-4.9) X10*3/uL [place] # (Auto) (0.1-1.2) X10*3/uL Eos # (Auto) (0.0-0.4) X10*3/uL Baso # (Auto) (0.0-0.2) X10*3/uL Abs Immat Gran (auto) (0.00-0.03) X10*3/uL Absolute Neuts (auto) (2.0-8.3) X10*3/uL Absolute Nucleated RBC (0.0-0.012) X10*3/uL Nucleated RBC % (auto) (0.0-0.2) /100WBC D-Dimer NG/ML Sodium (135-145) mmol/L Potassium (3.3-5.1) mmol/L Chloride (96-108) mmol/L Carbon Dioxide (22-29) mmol/L Anion Gap (12-20) BUN (9-16) mg/dL Creatinine (0.5-1.4) mg/dL Estim Creat Clear Calc Estimated GFR Random Glucose (60-115) mg/dL Calcium (8.4-10.2) mg/dL Total Bilirubin (0.0-1.0) mg/dL Direct Bilirubin (0.0-0.5) mg/dL AST (5-31) U/L ALT (0-31) U/L Alkaline Phosphatase (39-117) U/L Troponin I High Sens (<3.5-17.0) ng/L B-Natriuretic Peptide 22 (<100) pg/mL Total Protein (6.5-8.0) g/dL Albumin (3.5-5.0) g/dL Lipase (8-78) U/L Urine Color Urine Appearance Urine pH (5.0-8.0) Ur Specific [place] (1.005-1.025) Urine Protein (NEG-TRACE) MG/DL Urine Glucose (UA) (NEG) MG/DL Urine Ketones (NEG) MG/DL Urine Blood (NEG) Urine Nitrite (NEG) Ur Leukocyte Esterase (NEG) Urine RBC (0) /HPF Urine WBC (0-4) /HPF Ur Squamous Epith Cells /LPF Urine Bacteria /LPF Urine Mucus /LPF COVID-19 (SUZIE) Negative (Negative) COVID-19 Clin Com See Note <Nayeli Hdez, [employer] SALES EXECUTIVE- - Last Filed: 03/26/21 21:05> Lab Results 03/26/21 03/26/21 03/26/21 Range/Units 10:19 10:19 10:19 WBC 13.8 H (4.8-10.8) X10*3/uL RBC 5.00 (4.20-5.50) X10*6/uL Hgb 14.1 (12.0-16.0) g/dl Hct 45.4 (37-47) % MCV 90.8 (80-98) fL MCH 28.2 (27.0-33.0) pg MCHC 31.1 (31.0-35.0) g/dl RDW 15.7 (11.0-16.0) % Plt Count 341 (160-400) X10*3/uL MPV 9.9 (9.4-12.3) fL Immature Gran % (Auto) 0.4 (0.0-0.4) % Neut % (Auto) 79.5 H (45-73) % Lymph % (Auto) 11.0 L (20-40) % [place] % (Auto) 8.0 (2-11) % Eos % (Auto) 0.9 (0-4) % Baso % (Auto) 0.2 (0-2) % Lymph # (Auto) 1.5 (1.2-4.9) X10*3/uL [place] # (Auto) 1.1 (0.1-1.2) X10*3/uL Eos # (Auto) 0.1 (0.0-0.4) X10*3/uL Baso # (Auto) 0.0 (0.0-0.2) X10*3/uL Abs Immat Gran (auto) 0.05 H (0.00-0.03) X10*3/uL Absolute Neuts (auto) 11.0 H (2.0-8.3) X10*3/uL Absolute Nucleated RBC 0.000 (0.0-0.012) X10*3/uL Nucleated RBC % (auto) 0.0 (0.0-0.2) /100WBC D-Dimer NG/ML Sodium 141 (135-145) mmol/L Potassium 4.4 (3.3-5.1) mmol/L Chloride 102 (96-108) mmol/L Carbon Dioxide 29 (22-29) mmol/L Anion Gap 14 (12-20) BUN 48 H D (9-16) mg/dL Creatinine 1.11 (0.5-1.4) mg/dL Estim Creat Clear Calc 65.9 Estimated GFR 49 Random Glucose 130 H (60-115) mg/dL Calcium 10.5 H D (8.4-10.2) mg/dL Total Bilirubin 0.7 (0.0-1.0) mg/dL Direct Bilirubin 0.2 (0.0-0.5) mg/dL AST 19 (5-31) U/L ALT 18 (0-31) U/L Alkaline Phosphatase 108 D (39-117) U/L Troponin I High Sens 19.1 H* (<3.5-17.0) ng/L B-Natriuretic Peptide (<100) pg/mL Total Protein 7.4 (6.5-8.0) g/dL Albumin 3.7 (3.5-5.0) g/dL Lipase 74 (8-78) U/L Urine Color Urine Appearance Urine pH (5.0-8.0) Ur Specific [place] (1.005-1.025) Urine Protein (NEG-TRACE) MG/DL Urine Glucose (UA) (NEG) MG/DL Urine Ketones (NEG) MG/DL Urine Blood (NEG) Urine Nitrite (NEG) Ur Leukocyte Esterase (NEG) Urine RBC (0) /HPF Urine WBC (0-4) /HPF Ur Squamous Epith Cells /LPF Urine Bacteria /LPF Urine Mucus /LPF COVID-19 (SUZIE) (Negative) COVID-19 Clin Com 03/26/21 03/26/21 03/26/21 Range/Units 11:04 13:24 13:24 WBC (4.8-10.8) X10*3/uL RBC (4.20-5.50) X10*6/uL Hgb (12.0-16.0) g/dl Hct (37-47) % MCV (80-98) fL MCH (27.0-33.0) pg MCHC (31.0-35.0) g/dl RDW (11.0-16.0) % Plt Count (160-400) X10*3/uL MPV (9.4-12.3) fL Immature Gran % (Auto) (0.0-0.4) % Neut % (Auto) (45-73) % Lymph % (Auto) (20-40) % [place] % (Auto) (2-11) % Eos % (Auto) (0-4) % Baso % (Auto) (0-2) % Lymph # (Auto) (1.2-4.9) X10*3/uL [place] # (Auto) (0.1-1.2) X10*3/uL Eos # (Auto) (0.0-0.4) X10*3/uL Baso # (Auto) (0.0-0.2) X10*3/uL Abs Immat Gran (auto) (0.00-0.03) X10*3/uL Absolute Neuts (auto) (2.0-8.3) X10*3/uL Absolute Nucleated RBC (0.0-0.012) X10*3/uL Nucleated RBC % (auto) (0.0-0.2) /100WBC D-Dimer 1876 NG/ML Sodium (135-145) mmol/L Potassium (3.3-5.1) mmol/L Chloride (96-108) mmol/L Carbon Dioxide (22-29) mmol/L Anion Gap (12-20) BUN (9-16) mg/dL Creatinine (0.5-1.4) mg/dL Estim Creat Clear Calc Estimated GFR Random Glucose (60-115) mg/dL Calcium (8.4-10.2) mg/dL Total Bilirubin (0.0-1.0) mg/dL Direct Bilirubin (0.0-0.5) mg/dL AST (5-31) U/L ALT (0-31) U/L Alkaline Phosphatase (39-117) U/L Troponin I High Sens 21.8 H* (<3.5-17.0) ng/L B-Natriuretic Peptide (<100) pg/mL Total Protein (6.5-8.0) g/dL Albumin (3.5-5.0) g/dL Lipase (8-78) U/L Urine Color YELLOW Urine Appearance HAZY Urine pH 6.0 (5.0-8.0) Ur Specific [place] 1.025 (1.005-1.025) Urine Protein TRACE (NEG-TRACE) MG/DL Urine Glucose (UA) NEG (NEG) MG/DL Urine Ketones NEG (NEG) MG/DL Urine Blood 1+ H (NEG) Urine Nitrite NEG (NEG) Ur Leukocyte Esterase NEG (NEG) Urine RBC 1-4 (0) /HPF Urine WBC 1-4 (0-4) /HPF Ur Squamous Epith Cells 2+ /LPF Urine Bacteria TRACE /LPF Urine Mucus 2+ /LPF COVID-19 (SUZIE) (Negative) COVID-19 Clin Com 03/26/21 03/26/21 Range/Units 13:30 15:12 WBC (4.8-10.8) X10*3/uL RBC (4.20-5.50) X10*6/uL Hgb (12.0-16.0) g/dl Hct (37-47) % MCV (80-98) fL MCH (27.0-33.0) pg MCHC (31.0-35.0) g/dl RDW (11.0-16.0) % Plt Count (160-400) X10*3/uL MPV (9.4-12.3) fL Immature Gran % (Auto) (0.0-0.4) % Neut % (Auto) (45-73) % Lymph % (Auto) (20-40) % [place] % (Auto) (2-11) % Eos % (Auto) (0-4) % Baso % (Auto) (0-2) % Lymph # (Auto) (1.2-4.9) X10*3/uL [place] # (Auto) (0.1-1.2) X10*3/uL Eos # (Auto) (0.0-0.4) X10*3/uL Baso # (Auto) (0.0-0.2) X10*3/uL Abs Immat Gran (auto) (0.00-0.03) X10*3/uL Absolute Neuts (auto) (2.0-8.3) X10*3/uL Absolute Nucleated RBC (0.0-0.012) X10*3/uL Nucleated RBC % (auto) (0.0-0.2) /100WBC D-Dimer NG/ML Sodium (135-145) mmol/L Potassium (3.3-5.1) mmol/L Chloride (96-108) mmol/L Carbon Dioxide (22-29) mmol/L Anion Gap (12-20) BUN (9-16) mg/dL Creatinine (0.5-1.4) mg/dL Estim Creat Clear Calc Estimated GFR Random Glucose (60-115) mg/dL Calcium (8.4-10.2) mg/dL Total Bilirubin (0.0-1.0) mg/dL Direct Bilirubin (0.0-0.5) mg/dL AST (5-31) U/L ALT (0-31) U/L Alkaline Phosphatase (39-117) U/L Troponin I High Sens (<3.5-17.0) ng/L B-Natriuretic Peptide 22 (<100) pg/mL Total Protein (6.5-8.0) g/dL Albumin (3.5-5.0) g/dL Lipase (8-78) U/L Urine Color Urine Appearance Urine pH (5.0-8.0) Ur Specific [place] (1.005-1.025) Urine Protein (NEG-TRACE) MG/DL Urine Glucose (UA) (NEG) MG/DL Urine Ketones (NEG) MG/DL Urine Blood (NEG) Urine Nitrite (NEG) Ur Leukocyte Esterase (NEG) Urine RBC (0) /HPF Urine WBC (0-4) /HPF Ur Squamous Epith Cells /LPF Urine Bacteria /LPF Urine Mucus /LPF COVID-19 (SUZIE) Negative (Negative) COVID-19 Clin Com See Note <Michael De Los Santos MD - Last Filed: 03/27/21 14:51> Imaging Data Chest x-ray: Attestation: I personally reviewed and interpreted this imaging study as follows: <Pamela Wilson PA-C - Last Filed: 03/26/21 18:02> Radiologist's impression: XR/XR chest 2V IMPRESSION: Stable prominence of the ascending thoracic aorta. No evidence for acute disease in the chest. <Pamela Wilson PA-C - Last Filed: 03/26/21 18:02> CT scan - abdomen: Attestation: I personally reviewed and interpreted this imaging study as follows: <Pamela Wilson PA-C - Last Filed: 03/26/21 18:02> Radiologist's impression: CT/CT abdomen pelvis wo con IMPRESSION: Diverticulosis. No evidence of diverticulitis. Stool in the right colon questionable for mild constipation. Bilateral renal cysts. 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 These do not appear appreciably changed from 2018. Large umbilical hernia containing fat.? <Pamela Wilson PA-C - Last Filed: 03/26/21 18:02> Venous US: Attestation: I personally reviewed and interpreted this imaging study as follows: <Pamela Wilson PA-C - Last Filed: 03/26/21 18:02> Radiologist's impression: [place] [id number] Ultrasound Report Signed Patient: Rosa Uribe MR#: [id number] : 1950 Acct:[id number] Age/Sex: 70 / F ADM Date: 03/26/21 Loc: .ED Attending Dr: Ordering Physician: Pamela Wilson PA-C Date of Service: 03/26/21 Procedure(s): US venous duplex LE BI Accession Number(s): [id number] cc: Pamela Wilson PA-C~ EXAMINATION:? US VENOUS ULTRASOUND WITH DOPPLER LOWER EXTREMITY, BILATERAL CLINICAL INFORMATION:? Increased d-dimer COMPARISON:? May 2020 TECHNIQUE:. Exam is limited due to patient's body habitus. Ultrasound of the deep veins is performed from the hip to the calf with compression sonography and color and pulse Doppler assessment. Spectral analysis with color-flow imaging is performed. FINDINGS: RIGHT: There is normal venous compression and respiratory variation and augmented flow. The visualized common femoral vein, superficial femoral vein, profunda femoral vein, popliteal vein, and the trifurcation region shows no evidence of deep venous thrombosis. ? There is no significant popliteal fossa cyst. LEFT: There is normal venous compression and respiratory variation and augmented flow. The visualized common femoral vein, superficial femoral vein, profunda femoral vein, popliteal vein, and the trifurcation region shows no evidence of deep venous thrombosis. ? There is no significant popliteal fossa cyst. If the patient's symptoms persist, followup ultrasound in 5 days 7 days might be of value to exclude proximal propagation from a non-visualized calf vein. US/US venous duplex LE BI IMPRESSION: No DVT demonstrated in the both lower extremities. Dictated By: ADELINE WILKES MD Signed By: <Electronically signed by ADELINE WILKES MD in OV> 03/26/21 1429 DD/ 1215 TD/TT:? Guest Relations Coordinator: HS <SANTOS Kelly Last Filed: 03/26/21 18:02> ECG Data Attestation: I personally reviewed and interpreted this ECG as follows: <SANTOS Kelly Last Filed: 03/26/21 18:02> Interpretation: Test Reason : ABDOMINAL PAIN Blood Pressure : / mmHG Vent. Rate : 058 BPM ? ? Atrial Rate : 058 BPM ?? P-R Int : 168 ms? QRS Dur : 094 ms ? ? QT Int : 404 ms ? ? ? P-R-T Axes : 048 -04 020 degrees ?? QTc Int : 396 ms ? Sinus bradycardia Otherwise normal ECG When compared with ECG of 23-JUN-2019 09:20, Vent. rate has decreased BY? 29 BPM <SANTOS Kelly Last Filed: 03/26/21 18:02> Discharge Plan Discharge Clinical Impression: Constipation, UTI (urinary tract infection), Hypertension <SANTOS Kelly Last Filed: 03/26/21 18:02> Patient Disposition: Admitted As Inpatient <SANTOS Kelly Last Filed: 03/26/21 18:02> Interventions: Admission Worksheet (ED) Last Done: 03/27/21 07:57 <Pamela Wilson PA-C - Last Filed: 03/26/21 18:02> Discharge Date/Time: 03/27/21 07:57 <Pamela Wilson PA-C - Last Filed: 03/26/21 18:02> [facility] Past Medical History Medical History: Medical History Adult general medical exam 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 Asthma GERD (gastroesophageal reflux disease) History of renal calculi Hypertension Interstitial lung disease Morbid obesity Multinodular thyroid Obstructive sleep apnea Post-menopausal Rheumatoid arthritis Screening for hyperlipidemia Swelling of lower extremity Thyroid nodule Valvular heart disease <Pamela Wilson PA-C - Last Filed: 03/26/21 18:02> Surgical History: Surgical History History of cholecystectomy History of colonoscopy History of D&C History of umbilical hernia repair <Pamela Wilson PA-C - Last Filed: 03/26/21 18:02> Family History Family History: Family History Father CVD (cardiovascular disease) Mother CVD (cardiovascular disease) Hypertension Myocardial infarction <Pamela Wilson PA-C - Last Filed: 03/26/21 18:02> Social History Social History: Social History Household Members: Significant Other Housing: House Do you presently have visiting nurse or other home services: No Alcohol intake: never Patient Tobacco Use Status: Never used Tobacco e-Cigarette/Vaping Use: Never Used Second Hand Smoke Exposure: No service: No Current occupational status: retired and disabled <Pamela Wilson PA-C - Last Filed: 03/26/21 18:02>
[2021-03-26 10:25] LABS: MANUAL DIFF FLAG NO
[2021-03-26] MEDS: ondansetron HCL 4 MG/2 ML VIAL IVPUSH ×3 (10:36→23:44)
[2021-03-26] MEDS: Ketorolac Tromethamine 15 MG/ML VIAL 30 MG IVPUSH (10:37)
[2021-03-26] MEDS: predniSONE 5 MG TABLET 15 MG PO (10:37)
[2021-03-26 10:40] LABS: Basophils Percent Auto 0.2 % (0-2); Eosinophils Absolute Auto 0.1 X10*3/uL (0.0-0.4); Eosinophils Percent Auto 0.9 % (0-4); Hematocrit 45.4 % (37-47); Hemoglobin 14.1 g/dl (12.0-16.0); Imm Gran Abs Auto 0.05 X10*3/uL (0.00-0.03); Imm Gran Pct Auto 0.4 % (0.0-0.4); Lymphocytes Absolute Auto 1.5 X10*3/uL (1.2-4.9); Mean Corpuscular HGB Conc 31.1 g/dl (31.0-35.0); Mean Corpuscular Hemoglobin 28.2 pg (27.0-33.0); Mean Corpuscular Volume 90.8 fL (80-98); Mean Platelet Volume 9.9 fL (9.4-12.3); Monocytes Absolute Auto 1.1 X10*3/uL (0.1-1.2); Neutrophils Percent Auto 79.5 % (45-73); Platelet Count 341 X10*3/uL (160-400); Red Cell Distribution Width 15.7 % (11.0-16.0); White Blood Count 13.8 X10*3/uL (4.8-10.8)
[2021-03-26 10:43] LABS: Alanine Aminotransferase 18 U/L (0-31); Albumin Level 3.7 g/dL (3.5-5.0); Alkaline Phosphatase 108 U/L (39-117); Anion Gap 14 (12-20); Aspartate Amino Transferase 19 U/L (5-31); Bilirubin Direct 0.2 mg/dL (0.0-0.5); Bilirubin Total 0.7 mg/dL (0.0-1.0); Blood Urea Nitrogen 48 mg/dL (9-16); Calcium 10.5 mg/dL (8.4-10.2); Carbon Dioxide 29 mmol/L (22-29); Chloride 102 mmol/L (96-108); Creatinine Clr Calc Pharmacy 65.9; Estimated Glomerular Filt Rate 49; Glucose Random 130 mg/dL (60-115); Lipase 74 U/L (8-78); Potassium 4.4 mmol/L (3.3-5.1); Sodium 141 mmol/L (135-145); Total Protein 7.4 g/dL (6.5-8.0)
--- NOTE | 2021-03-26 10:48 | ECG_ITS ---
Test Reason : ABDOMINAL PAIN Blood Pressure : / mmHG Vent. Rate : 058 BPM Atrial Rate : 058 BPM P-R Int : 168 ms QRS Dur : 094 ms QT Int : 404 ms P-R-T Axes : 048 -04 020 degrees QTc Int : 396 ms Sinus bradycardia Otherwise normal ECG When compared with ECG of 23-JUN-2019 09:20, Vent. rate has decreased BY 29 BPM Referred By: Pamela Wilson Electronically Signed By:CHRIS OROZCO
[2021-03-26 11:31] LABS: D Dimer 1876 NG/ML
[2021-03-26 11:48] LABS: Troponin-I High Sensitivity 19.1 ng/L (<3.5-17.0)
[2021-03-26] MEDS: Simethicone 80 MG TAB.CHEW PO (12:30)
[2021-03-26 13:47] LABS: Appearance Urine HAZY; Color Urine YELLOW; Glucose Urine UA NEG (NEG); Leukocyte Esterase Urine NEG (NEG); Nitrite Urine NEG (NEG); Specific Gravity - Urine 1.025 (1.005-1.025); UACC Culture Trigger NO; Urine Blood 1+ (NEG); Urine Ketones NEG (NEG); Urine Protein TRACE MG/DL (NEG-TRACE)
[2021-03-26 14:02] LABS: Bacteria Urine TRACE /LPF; Mucus Urine 2+ /LPF; Squamous Epithelial Cell Urine 2+ /LPF; Troponin-I High Sensitivity 21.8 ng/L (<3.5-17.0)
[2021-03-26 14:26] LABS: B Type Natriuretic Peptide 22 pg/mL (<100)
[2021-03-26] MEDS: HYDROmorphone HCl 0.5 MG/0.5 ML SYRINGE IVPUSH (14:32)
[2021-03-26] MEDS: Metoclopramide HCl 10 MG/2 ML VIAL IVPUSH (14:32)
[2021-03-26] MEDS: Lactated Ringers 500 ML 999 ML IV (14:33)
[2021-03-26] MEDS: polyethylene glycoL 3350 17 GM POWD.PACK PO (15:30)
[2021-03-26 15:32] LABS: COVID-19 Test Negative (Negative); IDNOW Serial# 9DD0AD1C
--- NOTE | 2021-03-26 15:41 | PC.NURSE ---
Pt with continuous low abd pain, assisted to stretcher from wheelchair. Placed on hall monitor and hr noted from 38-80s, at times in bigemeny. BP 226/106. Julia Wilson notified.
[2021-03-26] MEDS: hydrALAZINE HCl 20 MG/ML VIAL 5 MG IVPUSH ×2 (15:51→16:51)
--- NOTE | 2021-03-26 16:04 | PC.NURSE ---
repeat ekg obtained d/t child monitor changes. Pt continues with abd pain, julia pérez pa to bedside for re eval. Pt noted with discolored b/l lower extremities right upper ext. Julia made aware. Pt to be pulled next for chest ct can. Hydralazine given for htn
[2021-03-26] MEDS: iohexoL 350 MG/ML 100 ML INFUS..BTL IV (17:26)
[2021-03-26] MEDS: HYDROmorphone HCl 1 MG/ML SYRINGE IVPUSH ×2 (17:52→23:44)
--- NOTE | 2021-03-26 17:53 | PC.NURSE ---
Pt states pain is sl better, finished second ct scan of abd, IV leaked with first scan and needed to be redone. Pt on commode at this time. Repeat labs to be drawn.
--- NOTE | 2021-03-26 18:35 | PC.NURSE ---
pt is difficult stick, another tech attempting at this time.
[2021-03-26] MEDS: cloNIDine HCL 0.1 MG TABLET PO ×2 (19:52→22:30)
[2021-03-26] MEDS: Magnesium Citrate 300 ML SOLUTION PO (19:53)
--- NOTE | 2021-03-26 22:32 | PC.NURSE ---
iv blew. unable to reestablish at this time. pt continues to c/o abd pain, no BM as of yet. vomited while on toilet and clonidine pill was noted by so redosed.
[2021-03-26] MEDS: 0.9 % Sodium Chloride 500 ML IV (23:45)
[2021-03-26] MEDS: Labetalol HCL 100 MG/20 ML VIAL 20 MG IVPUSH (23:55)
[2021-03-26] MEDS: Sodium Phosphate,Mono-Dibasic 133 ML ENEMA PR (23:56)
[2021-03-27] VITALS (12 sets, daily range): BP systolic 105–174; BP diastolic 61–94; PULSE 56–88; RESP 17–20; TEMP 36.1–36.8; O2SAT 92–98
[2021-03-27] MEDS: HYDROmorphone HCl 1 MG/ML SYRINGE IVPUSH (01:48)
[2021-03-27] MEDS: ondansetron HCL 4 MG/2 ML VIAL IVPUSH ×2 (02:35→09:24)
--- NOTE | 2021-03-27 03:30 | P.HPHOSP_ITS ---
History of Present Illness Date of Service: 03/27/21 Chief Complaint: Abdominal pain 70-year-old female with an extensive past medical history that includes GERD, HTN, I LD, morbid obesity, MARJORIE, chronic lymphadenopathy who presents to the hospital with complaints of abdominal pain. Describes it as sharp, constant,, 10/10, nonradiating, diffused, no exacerbating or relieving factors, associated with nausea with no vomiting, no diarrhea, patient has been constipated, denies any fevers or chills, denies any chest pain, no shortness of breath, no cough, no urinary symptoms and no lower extremity edema. No numbness tingling weakness. No headache or change in vision. Vitals on arrival were unremarkable Labs are significant for WBC count of 13.8, BUN of 48, creatinine of 1.11, troponin of 19.1, which increased to 21.8, BNP 22, UA negative. That included, abdominal in angiogram, venous duplex and the findings were significant for no acute vascular abnormalities, the ascending thoracic aorta is mildly dilated of 4.2 cm transverse diameter with no acute aortic injury. No thoracic intramural hematoma or dissection. There is atherosclerotic calcification of the abdominal aorta without aortic aneurysm. All splenic and renal artery aneurysms that are not new, colonic diverticulosis without diverticulitis, diffuse hepatic steatosis, fat containing abdominal wall hernia. Venous duplex of bilateral lower extremities are negative for lower extremity DVT Patient received multiple doses of pain medications with persistent pain therefore she will be admitted for further management of intractable abdominal pain Review of Systems Review of Systems: Yes all other systems are reviewed and are negative FORMERLY [facility], [facility] Medical History Adult general medical exam 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 Asthma GERD (gastroesophageal reflux disease) History of renal calculi Hypertension Interstitial lung disease Morbid obesity Multinodular thyroid Obstructive sleep apnea Post-menopausal Rheumatoid arthritis Screening for hyperlipidemia Swelling of lower extremity Thyroid nodule Valvular heart disease Family History Father CVD (cardiovascular disease) Mother CVD (cardiovascular disease) Hypertension Myocardial infarction Pertinent family history: Family history as above Surgical History History of cholecystectomy History of colonoscopy History of D&C History of umbilical hernia repair Social History Housing: House Alcohol intake: never Patient Tobacco Use Status: Never used Tobacco e-Cigarette/Vaping Use: Never Used Second Hand Smoke Exposure: No Advance Directives: No Advance Directives Information Provided: No service: No Current occupational status: disabled Meds Allergies Allergy/AdvReac Type Severity Reaction Status Date / Time amlodipine Allergy Unknown Unknown Verified 03/21/21 15:39 atenolol Allergy Unknown Unknown Verified 03/21/21 15:39 atorvastatin [Lipitor] Allergy Unknown Unknown Verified 03/21/21 15:39 ciprofloxacin [Cipro] Allergy Unknown Unknown Verified 03/21/21 15:39 Doxycycline Hyclate Allergy Unknown Unknown Verified 03/21/21 15:39 hydrochlorothiazide Allergy Unknown Unknown Verified 03/21/21 15:39 Iodinated Contrast Media Allergy Unknown DIFFICULTY Verified 03/21/21 15:39 [CONTRAST, IV] BREATHING levofloxacin [Levaquin] Allergy Unknown Unknown Verified 03/21/21 15:39 lisinopril Allergy Unknown Unknown Verified 03/21/21 15:39 penicillin V Allergy Unknown rash Verified 03/21/21 15:39 Penicillins Allergy Unknown RASH, DIFF Verified 03/21/21 15:39 BREATHING TO ALL CILLIN DRUGS pseudoephedrine [Sudafed] Allergy Unknown Unknown Verified 03/21/21 15:39 strawberry Allergy Unknown Unknown Verified 03/21/21 15:39 Sulfa (Sulfonamide Allergy Unknown DIFFICULTY Verified 03/21/21 15:39 Antibiotics) BREATHING, [SULFA (SULFONAMIDE HIVES ANTIBIOTICS)] Tetracyclines [TETRACYCLINES] Allergy Unknown ? RXN Verified 03/21/21 15:39 valsartan [Diovan] Allergy Unknown Unknown Verified 03/21/21 15:39 verapamil Allergy Unknown Unknown Verified 03/21/21 15:39 Home Medications Medication Instructions Recorded Confirmed Last Taken Type ascorbic acid (vitamin C) 500 mg See Rx Instructions .ROUTE .COMPLEX 04/19/20 03/27/21 Unknown History capsule calcium carbonate 600 mg calcium 600 mg PO DAILY 04/19/20 03/27/21 Unknown History (1,500 mg) tablet (Calcium) cholecalciferol (vitamin D3) 25 25 mcg PO DAILY 04/19/20 03/27/21 Unknown History mcg (1,000 unit) capsule coenzyme Q10 10 mg capsule (Co 10 mg PO DAILY cap 04/19/20 03/27/21 Unknown History Q-10) cyanocobalamin (vitamin B-12) 1,000 mcg PO DAILY 04/19/20 03/27/21 Unknown History 1,000 mcg capsule multivitamin 1 tab PO DAILY 04/19/20 03/27/21 Unknown History omega-3 fatty acids 1,000 mg 1,000 mg PO DAILY 04/19/20 03/27/21 Unknown History capsule ciclopirox 0.77 % topical cream See Protocol TOPICAL USEASDIRECTD 05/12/20 03/27/21 Unknown History (Loprox (as olamine)) ketoconazole 2 % topical cream See Rx Instructions .ROUTE .COMPLEX 05/12/20 03/27/21 Unknown History triamcinolone acetonide 0.1 % See Rx Instructions .ROUTE .COMPLEX 05/12/2003/27 Unknown History topical cream glucosamine sulf NaCl-chondroitin See Rx Instructions .ROUTE .COMPLEX 09/06/20 03/27/21 Unknown History sulf sodium 750 mg-400 mg oral pack ipratropium 0.5 mg-albuterol 3 mg 3 ml INHALATION Q4-6H PRN 09/06/20 03/27/21 Unknown History (2.5 mg base)/3 mL nebulization soln zinc 22 mg tablet 20 mg PO DAILY tab 10/06/20 03/27/21 Unknown History prednisone 10 mg tablet 20 mg PO DAILY 03/21/21 03/27/21 Unknown History Physical Exam Vital Signs and Narrative: Vital Signs: Last Vital Signs Temp 96.8 F 03/26/21 15:19 Pulse 56 03/27/21 00:11 Resp 03/27/21 02:04 BP 174/77 H 03/27/21 00:11 Pulse Ox 98 03/26/21 22:00 Body Mass Index 51.5 Const: General: cooperative and no acute distress Orientation/consciousness: patient oriented x3 Eyes: General: appearance normal, both eyes and all related structures Pupils: Equal, round and reactive pupils present Resp: Effort & Inspection: normal respiratory effort Auscultation: clear to auscultation bilaterally Cardio: Rate: regular rate Rhythm: regular rhythm GI: Other: Patient demonstrates tenderness on minimal palpation of the abdomen diffusely, no rebound or guarding elicited Palpation (GI): Soft to palpation Auscultation: normal bowel sounds Skin: General skin exam: no rashes or lesions noted Neuro: General: patient oriented x3 Cranial nerves: Yes Equal, round and reactive pupils present Cognition (Neuro): normal cognition Extrem: General: Yes normal to inspection and Yes no pedal edema Results Labs CBC and Chem 7: 03/26/21 10:19 03/26/21 10:19 Labs: Laboratory Results - last 24 hr 03/26/21 03/26/21 03/26/21 10:19 10:19 10:19 MCV 90.8 MCH 28.2 MCHC 31.1 RDW 15.7 Plt Count 341 MPV 9.9 Immature Gran % (Auto) 0.4 Neut % (Auto) 79.5 H Lymph % (Auto) 11.0 L Gilchrist % (Auto) 8.0 Eos % (Auto) 0.9 Baso % (Auto) 0.2 Lymph # (Auto) 1.5 Gilchrist # (Auto) 1.1 Eos # (Auto) 0.1 Baso # (Auto) 0.0 Abs Immat Gran (auto) 0.05 H Absolute Neuts (auto) 11.0 H Absolute Nucleated RBC 0.000 Nucleated RBC % (auto) 0.0 D-Dimer Anion Gap 14 Estim Creat Clear Calc 65.9 Estimated GFR 49 Random Glucose 130 H Calcium 10.5 H D Total Bilirubin 0.7 Direct Bilirubin 0.2 AST 19 ALT 18 Alkaline Phosphatase 108 D Troponin I High Sens 19.1 H* B-Natriuretic Peptide Total Protein 7.4 Albumin 3.7 Lipase 74 Urine Color Urine Appearance Urine pH Ur Specific [place] Urine Protein Urine Glucose (UA) Urine Ketones Urine Blood Urine Nitrite Ur Leukocyte Esterase Urine RBC Urine WBC Ur Squamous Epith Cells Urine Bacteria Urine Mucus COVID-19 (SUZIE) COVID-19 Clin Com 03/26/21 03/26/21 03/26/21 11:04 13:24 13:24 MCV MCH MCHC RDW Plt Count MPV Immature Gran % (Auto) Neut % (Auto) Lymph % (Auto) Gilchrist % (Auto) Eos % (Auto) Baso % (Auto) Lymph # (Auto) Gilchrist # (Auto) Eos # (Auto) Baso # (Auto) Abs Immat Gran (auto) Absolute Neuts (auto) Absolute Nucleated RBC Nucleated RBC % (auto) D-Dimer 1876 Anion Gap Estim Creat Clear Calc Estimated GFR Random Glucose Calcium Total Bilirubin Direct Bilirubin AST ALT Alkaline Phosphatase Troponin I High Sens 21.8 H* B-Natriuretic Peptide Total Protein Albumin Lipase Urine Color YELLOW Urine Appearance HAZY Urine pH 6.0 Ur Specific [place] 1.025 Urine Protein TRACE Urine Glucose (UA) NEG Urine Ketones NEG Urine Blood 1+ H Urine Nitrite NEG Ur Leukocyte Esterase NEG Urine RBC 1-4 Urine WBC 1-4 Ur Squamous Epith Cells 2+ Urine Bacteria TRACE Urine Mucus 2+ COVID-19 (SUZIE) COVID-19 Clin Com 03/26/21 03/26/21 13:30 15:12 MCV MCH MCHC RDW Plt Count MPV Immature Gran % (Auto) Neut % (Auto) Lymph % (Auto) Gilchrist % (Auto) Eos % (Auto) Baso % (Auto) Lymph # (Auto) Gilchrist # (Auto) Eos # (Auto) Baso # (Auto) Abs Immat Gran (auto) Absolute Neuts (auto) Absolute Nucleated RBC Nucleated RBC % (auto) D-Dimer Anion Gap Estim Creat Clear Calc Estimated GFR Random Glucose Calcium Total Bilirubin Direct Bilirubin AST ALT Alkaline Phosphatase Troponin I High Sens B-Natriuretic Peptide 22 Total Protein Albumin Lipase Urine Color Urine Appearance Urine pH Ur Specific [place] Urine Protein Urine Glucose (UA) Urine Ketones Urine Blood Urine Nitrite Ur Leukocyte Esterase Urine RBC Urine WBC Ur Squamous Epith Cells Urine Bacteria Urine Mucus COVID-19 (SUZIE) Negative COVID-19 Clin Com See Note Imaging Radiologist's Impressions: Impressions Abdomen/Pelvis CT 03/26/21 09:46 IMPRESSION: Diverticulosis. No evidence of diverticulitis. Stool in the right colon questionable for mild constipation. Bilateral renal cysts. 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 These do not appear appreciably changed from 2018. Large umbilical hernia containing fat. Chest X-Ray 03/26/21 09:48 IMPRESSION: Stable prominence of the ascending thoracic aorta. No evidence for acute disease in the chest. Venous Duplex 03/26/21 12:15 IMPRESSION: No DVT demonstrated in the both lower extremities. Abdomen/Pelvis CTA 03/26/21 16:06 IMPRESSION: * No acute vascular abnormalities. The ascending thoracic aorta is mildly dilated (4.2 cm transverse diameter). No acute aortic injury. No thoracic intramural hematoma or dissection. There is atherosclerotic calcification of the abdominal aorta without abdominal aortic aneurysm. There are old splenic and renal artery aneurysms. * Colonic diverticulosis without diverticulitis. * Diffuse hepatic steatosis. * Fat-containing abdominal wall hernia. Chest CTA 03/26/21 16:06 IMPRESSION: * No acute vascular abnormalities. The ascending thoracic aorta is mildly dilated (4.2 cm transverse diameter). No acute aortic injury. No thoracic intramural hematoma or dissection. There is atherosclerotic calcification of the abdominal aorta without abdominal aortic aneurysm. There are old splenic and renal artery aneurysms. * Colonic diverticulosis without diverticulitis. * Diffuse hepatic steatosis. * Fat-containing abdominal wall hernia. Assessment and Plan (1) Intractable abdominal pain: Status: Acute (2) Lymphedema: Status: Acute (3) Constipation: Status: Acute 70-year-old female with an extensive past medical history who presents to the hospital with complaints of diffuse abdominal pain, being admitted for intractable abdominal pain # intractable abdominal pain - workup including labs, imaging showed no significant abnormality to explain her abdominal discomfort - a CT angiogram showed no vascular disease, CT plane of the abdomen showed no abnormality except diverticulosis with no diverticulitis - at this time will start on pain medications, supportive measures - if pain persist consider GI consult # constipation - will start patient on MiraLax, give 1 dose of milk of magnesia - monitor # lymphedema - chronic - negative venous duplex study for DVT - continue Bumex # hypothyroidism - continue levothyroxine # hypertension - elevated - continue home medications # asthma - continue home inhalers DVT prophylaxis heparin subQ Quality Stroke Does the patient have a stroke diagnosis?: No VTE Prior VTE?: No VTE Risk Level:: Medical - moderate - high VTE Device Contraindication: Treatment Not Indicated VTE Drug Contraindication: N/A - Med Ordered
--- NOTE | 2021-03-27 03:41 | PC.NURSE ---
pt up to commode.
--- NOTE | 2021-03-27 04:45 | PC.NURSE ---
pt up to commode with assistance and returned to stretcher in nad. C-pap on pt by respiratory. VS obtained. Will continue to monitor pt..
[2021-03-27] MEDS: Morphine Sulfate 4 MG/ML CARTRIDGE IVPUSH ×2 (05:23→09:49)
--- NOTE | 2021-03-27 05:27 | PC.NURSE ---
pt c/o pain to lower abd area. pt medicated as per emar for pain. pt on commode with assistance.
[2021-03-27] MEDS: Heparin Sodium,Porcine 5,000 UNIT/ML VIAL 5000 UNIT SUBCUT ×3 (06:39→20:28)
[2021-03-27] MEDS: 0.9 % Sodium Chloride Flush 3 ML SYRINGE IVFLUSH ×2 (09:24→17:31)
[2021-03-27 09:59] LABS: Glucose, Whole Blood 192 mg/dL (60-115)
[2021-03-27 11:36] LABS: Glucose, Whole Blood 155 mg/dL (60-115)
--- NOTE | 2021-03-27 11:44 | MHC.CM.PN ---
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 PT VERY LETHARGIC AND PER RN HAD JUST RECEIVED MORPHINE. CM OBTAINED INFORMATION FROM HER SPOUSE WHO WAS AT BEDSIDE. 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 HE REPORTS THE PT HAS CANES, A WALKER BUT TYPICALLY USES A WHEEL CHAIR. HE REPORTS THEY ALSO BOTH HAVE LIFT CHAIRS THEY SLEEP IN. PT ALSO HAS A NEBULIZER AND CPAP AT HOME. HE CONFIRMS HER PCP IS KEYONNA RODRIGUEZ AND SAYS HE BELIEVES SHE HAS A HCP HE IS AWARE CM CAN ASSIST IN COMPLETING A NEW ONE IF PT WISHES ONCE SHE IS ALERT AND ORIENTED. IMM DELIVERED CURRENT DC PLAN IS HOME SPOUSE TO TRANSPORT
[2021-03-27] MEDS: Docusate Sodium 100 MG CAPSULE PO ×2 (12:13→20:27)
[2021-03-27] MEDS: Losartan Potassium 50 MG TABLET PO (12:13)
[2021-03-27] MEDS: Bumetanide 1 MG TABLET PO (12:13)
[2021-03-27] MEDS: polyethylene glycoL 3350 17 GM POWD.PACK PO (12:15)
[2021-03-27 12:22] LABS: Hematocrit 45.7 % (37-47); Hemoglobin 14.7 g/dl (12.0-16.0); Mean Corpuscular HGB Conc 32.2 g/dl (31.0-35.0); Mean Corpuscular Hemoglobin 29.2 pg (27.0-33.0); Mean Corpuscular Volume 90.7 fL (80-98); Mean Platelet Volume 9.8 fL (9.4-12.3); Platelet Count 363 X10*3/uL (160-400); Red Cell Distribution Width 15.9 % (11.0-16.0)
[2021-03-27 12:32] LABS: Red Blood Count 5.04 X10*6/uL (4.20-5.50)
[2021-03-27 12:36] LABS: White Blood Count 37.3 X10*3/uL (4.8-10.8)
[2021-03-27 12:41] LABS: Anion Gap 19 (12-20); Blood Urea Nitrogen 51 mg/dL (9-16); Calcium 9.7 mg/dL (8.4-10.2); Carbon Dioxide 25 mmol/L (22-29); Chloride 100 mmol/L (96-108); Creatinine Clr Calc Pharmacy 53.7; Estimated Glomerular Filt Rate 39; Glucose Random 165 mg/dL (60-115); Potassium 4.3 mmol/L (3.3-5.1); Sodium 140 mmol/L (135-145)
[2021-03-27 12:42] LABS: Band Neutrophils Percent 5 % (3-5); Lymphocytes Absolute Manual 0.4 X10*3/uL (0.6-4.8); Lymphocytes Percent Manual 1 % (20-40); Monocytes Absolute Manual 2.6 X10*3/uL (0.0-1.2); Monocytes Percent Manual 7 % (2-11); Neutrophils Absolute Manual 34.3 X10*3/uL (2.2-7.9); Neutrophils Percent Manual 87 % (45-73)
[2021-03-27 12:43] LABS: Platelet Estimate NORMAL (NORMAL); Platelet Morphology Comment NORMAL; RBC Morphology NOTED
[2021-03-27 12:44] LABS: Acanthocytes 1+ (0-2) /OIF; Ovalocytes 1+ (5-14) /OIF; Toxic Vacuolation PRESENT
[2021-03-27 12:45] LABS: Tear Drop Cells 1+ (0-2) /OIF
[2021-03-27] MEDS: Clotrimazole 1 % Cream 15 GM TUBE 1 APPL TOPICAL ×2 (13:53→20:28)
--- NOTE | 2021-03-27 16:07 | P.EN_ITS ---
Event Note Date of Service: 03/27/21 Event Note: 70-year-old female with significant past medical history including bilateral lymphedema, RA , pulmonary fibrosis, aneurysm of the left renal artery, ascending aorta dilatation last measured 4.5 x 4.03 September 2020, GERD, HTN, morbid obesity, MARJORIE and multinodular thyroid presented with nausea and vomiting since last night symptoms started after eating passed a with to meat balls and clam chowder last evening, no diarrhea, last bowel movement day before, denies associated fever chills , on Bumex recently started by PCP for leg swelling , on prednisone most likely for rheumatoid arthritis, patient is wheelchair-bound. Patient underwent extensive workup in the ER Labs are significant for WBC count of 13.8, BUN of 48, creatinine of 1.11, troponin of 19.1, which increased to 21.8, BNP 22, UA negative. abdominal CT showed no evidence of diverticulitis stool in right colon question for mild constipation,venous duplex no acute vascular abnormalities, CTA abdomen and pelvis showed no acute vascular abnormalities, ascending thoracic aorta is mildly dilated of 4.2 cm transverse diameter with no acute aortic injury.? No thoracic intramural hematoma or dissection.? There is atherosclerotic calcification of the abdominal aorta without aortic aneurysm.? Old splenic and renal artery aneurysms , colonic diverticulosis without diverticulitis, diffuse hepatic steatosis, fat containing abdominal wall hernia. Venous duplex of bilateral lower extremities are negative for lower extremity DVT Patient treated in the emergency room with multiple dosages of IV Dilaudid, lactulose, Fleet enema, magnesium citrate 300 mL, IV labetalol, clonidine and IV mid tile prednisolone for concern for contrast allergy This a.m. patient continued to have left lower quadrant abdominal pain, had watery stool with small hard stool, does not appear to be in acute distress Abdominal examination nontender, obese, significant moist hyperemia left groin c/w Karime intertrigo 70-year-old female with an extensive past medical history who presents to the hospital with complaints of diffuse abdominal pain, admitted for intractable abdominal pain/constipation # acute intractable abdominal pain - workup including labs, imaging showed no significant abnormality to explain her abdominal discomfort CT angiogram showed no vascular disease, CT abdomen showed no abnormality except diverticulosis with no diverticulitis and constipation Will DC IV morphine since contributing to constipation, place on Lidoderm patch, hot pack, and give 1 dose of lactulose consider GI consult no improvement in symptoms # constipation status post enema, MiraLax and milk of Mag will give lactulose # acute leukocytosis, patient is chronic leukocytosis due to steroids likely worsening leukocytosis due to high-dose IV Solu Medrol, no fevers, no chills, normal urinalysis, CTA chest and abdomen showed no evidence of infection Follow CBC. # morbid obesity weight reduction recommended # lymphedema - chronic, negative venous duplex study for DVT, recently started on Bumex, note d to have worsening BUN follow clinical course and reassess need for continued Bumex # hypothyroidism - continue levothyroxine # hypertension - noted to have significantly elevated blood pressure on arrival 226/106, patient treated in the emergency room with multiple antihypertensive now blood pressure down to 105/73 Continue losartan home dose and follow BP closely. # asthma -? no acute exacerbation, continue home inhalers DVT prophylaxis heparin subQ
[2021-03-27] MEDS: Lactulose 20 GM/30 ML SOLUTION PO (17:29)
[2021-03-27] MEDS: Lidocaine 4 % Patch ADH..PATCH 1 PATCH TRANSDERMA (17:29)
[2021-03-27] MEDS: Acetaminophen 325 MG TABLET 650 MG PO (20:27)
[2021-03-27] MEDS: Gabapentin 100 MG CAPSULE PO (20:27)
[2021-03-28] VITALS (19 sets, daily range): BP systolic 65–129; BP diastolic 48–89; PULSE 73–97; RESP 15–30; TEMP 35.9–36.6; O2SAT 85–99
[2021-03-28] MEDS: Morphine Sulfate 4 MG/ML CARTRIDGE IVPUSH ×2 (00:37→04:42)
[2021-03-28] MEDS: 0.9 % Sodium Chloride Flush 3 ML SYRINGE IVFLUSH ×4 (00:38→21:52)
[2021-03-28] MEDS: Heparin Sodium,Porcine 5,000 UNIT/ML VIAL 5000 UNIT SUBCUT ×3 (05:46→23:13)
[2021-03-28 07:50] LABS: Hematocrit 40.8 % (37-47); Hemoglobin 12.7 g/dl (12.0-16.0); Mean Corpuscular HGB Conc 31.1 g/dl (31.0-35.0); Mean Corpuscular Hemoglobin 28.3 pg (27.0-33.0); Mean Corpuscular Volume 91.1 fL (80-98); Mean Platelet Volume 10.4 fL (9.4-12.3); Platelet Count 269 X10*3/uL (160-400); Red Blood Count 4.48 X10*6/uL (4.20-5.50); Red Cell Distribution Width 16.3 % (11.0-16.0); WBC ABN SCTR FOR CBC 1
[2021-03-28 08:14] LABS: Blood Urea Nitrogen 69 mg/dL (9-16); Creatinine Clr Calc Pharmacy 26.4; Estimated Glomerular Filt Rate 17; Glucose Random 89 mg/dL (60-115)
[2021-03-28 08:38] LABS: Anion Gap 21 (12-20); Calcium 8.7 mg/dL (8.4-10.2); Carbon Dioxide 22 mmol/L (22-29); Chloride 98 mmol/L (96-108); Potassium 4.7 mmol/L (3.3-5.1); Sodium 136 mmol/L (135-145)
[2021-03-28 09:17] LABS: Glucose, Whole Blood 67 mg/dL (60-115)
--- NOTE | 2021-03-28 09:42 | PC.NURSE ---
0830 lethargic, pale, diff to arouse. skin cool to touch. BP diff to hear. Dr Ding in and accessed pt. will monitor. 0910 still diff to arouse. POC 67 IV dextrose given per protocal BP 71/52 SAT 84. Rapid response called 0920 placed on non rebreather by resp IV Narcan 0.4mg given per MD. IN Bolus NS infusing. More responsive. Opens eyes, Following commands. BP 94/62
[2021-03-28 09:43] LABS: Band Neutrophils Percent 16 % (3-5); Lymphocytes Percent Manual 3 % (20-40); Monocytes Percent Manual 1 % (2-11); Neutrophils Percent Manual 80 % (45-73)
[2021-03-28 09:44] LABS: Ovalocytes 1+ (5-14) /OIF; RBC Morphology NOTED
[2021-03-28 09:45] LABS: Acanthocytes 1+ (0-2) /OIF; Hypochromasia 1+ (5-14) /OIF; Platelet Estimate NORMAL (NORMAL); Platelet Morphology Comment NORMAL
[2021-03-28] MEDS: Clotrimazole 1 % Cream 15 GM TUBE 1 APPL TOPICAL ×2 (09:54→20:44)
[2021-03-28] MEDS: 0.9 % Sodium Chloride 1,000 ML 999 ML IV (09:57)
[2021-03-28 10:22] LABS: Lymphocytes Absolute Manual 0.6 X10*3/uL (0.6-4.8); Monocytes Absolute Manual 0.2 X10*3/uL (0.0-1.2); Neutrophils Absolute Manual 18.9 X10*3/uL (2.2-7.9); White Blood Count 19.7 X10*3/uL (4.8-10.8)
[2021-03-28] MEDS: Dextrose 5 % and 0.9 % NaCl 1,000 ML 125 ML IVCONT (10:51)
--- NOTE | 2021-03-28 11:39 | MHC.CLN ---
NUTRITION CONSULT FOR SKIN PATIENT WITH BLANCHABLE REDNESS TO BUTTOCKS (STAGE I) WITH FUNGAL RASH. INTAKE X 1 DAY IS POOR. PATIENT WITH EXTREME OBESITY, BMI=51.5. CHAIRFAST. DIABETIC DIET 1800 KCAL (33 KCAL/KG IBW); 2 GRAM SODIUM. NO SUPPLEMENTS AT THIS TIME. CONTINUE CURRENT DIET.
[2021-03-28 11:57] LABS: Glucose, Whole Blood 104 mg/dL (60-115)
--- NOTE | 2021-03-28 12:15 | P.PNIM_ITS ---
Subjective Subjective Date of Service: 03/28/21 Interval History: Patient noted to be lethargic, hypotensive, hypoxic and hypoglycemic this a.m., but patient able to answer questions appropriately, no confusion, denied abdominal pain Review of Systems Difficult to obtain detailed review of systems due to lethargy Physical Exam Vital Signs: Vital Signs: Last Vital Signs Temp 96.9 F 03/28/21 11:28 Pulse 87 03/28/21 11:28 Resp 24 H 03/28/21 11:28 BP 76/49 L 03/28/21 11:28 Pulse Ox 90 L 03/28/21 11:28 Body Mass Index 51.5 General lethargic arousable, speech clear answering questions appropriately Neck supple no JVD. CVS regular rate rhythm, Respiratory lungs clear to auscultation, no respiratory distress, no wheeze, no rhonchi. Gastrointestinal abdomen obese, nontender, bowel sounds audible, no guarding , no rigidity. Extremities no leg edema, chronic skin discoloration Neuro moving all 4 extremity, speech clear. Skin significant hyperemia left groin greater than right Objective Data Active Medications Acetaminophen (Acetaminophen 325 Mg Tablet) 650 mg PO Q6H PRN PRN Reason: Pain, Mild (Pain Scale 1-3) Last Admin: 03/27/21 20:27 Dose: 650 mg Documented by: HARINI Albuterol Sulfate (Albuterol Sulfate 90 Mcg 8 Gm Inhaler) 2 puff INHALE Q4H PRN PRN Reason: shortness of breath or wheezing Clotrimazole (Clotrimazole 1 % Cream 15 Gm Tube) 1 appl TOPICAL BID [facility]; Protocol Last Admin: 03/28/21 09:54 Dose: 1 appl Documented by: MYRA Cyanocobalamin (Cyanocobalamin (Vitamin B-12) 1,000 Mcg Tablet) 1,000 mcg PO DAILY [facility] Last Admin: 03/28/21 09:49 Dose: Not Given Documented by: MYRA Non-Admin Reason: too lethargic Docusate Sodium (Docusate Sodium 100 Mg Capsule) 100 mg PO BID [facility] Last Admin: 03/28/21 09:49 Dose: Not Given Documented by: MYRA Non-Admin Reason: too lethargic Gabapentin (Gabapentin 100 Mg Capsule) 100 mg PO BEDTIME [facility] Last Admin: 03/27/21 20:27 Dose: 100 mg Documented by: HARINI Heparin Sodium (Porcine) (Heparin Sodium,Porcine 5,000 Unit/Ml Vial) 5,000 unit SUBCUT Q8H [facility] Last Admin: 03/28/21 05:46 Dose: 5,000 unit Documented by: RAMBO Dextrose/Sodium Chloride (D5ns) 1,000 mls @ 125 mls/hr IVCONT .Q8H [facility] Last Admin: 03/28/21 10:51 Dose: 125 mls/hr Documented by: MYRA Multivitamins/Vitamin C (Multivitamin Tablet) 1 tab PO DAILY [facility] Last Admin: 03/28/21 09:49 Dose: Not Given Documented by: MYRA Non-Admin Reason: too lethargic Naloxone HCl (Naloxone Hcl 0.4 Mg/Ml Vial) 0.4 mg IVPUSH ONCE ONE Stop: 03/28/21 12:15 Ondansetron HCl (Ondansetron Hcl 4 Mg/2 Ml Vial) 4 mg IVPUSH Q8H PRN PRN Reason: Nausea and Vomiting Last Admin: 03/27/21 09:24 Dose: 4 mg Documented by: PANKAJ Polyethylene Glycol (Polyethylene Glycol 3350 17 Gm Powd.Pack) 17 gm PO DAILY [facility] Last Admin: 03/28/21 09:50 Dose: Not Given Documented by: MYRA Non-Admin Reason: too lethargic Sodium Chloride (0.9 % Sodium Chloride Flush 3 Ml Syringe) 3 ml IVFLUSH QSHIFT [facility] Last Admin: 03/28/21 09:54 Dose: 3 ml Documented by: MYRA Vitamin D (Cholecalciferol (Vitamin D3) 25 Mcg Tablet) 25 mcg PO DAILY [facility] Last Admin: 03/28/21 09:48 Dose: Not Given Documented by: MYRA Non-Admin Reason: too lethargic Zinc Sulfate (Zinc Sulfate 220 Mg Capsule) 220 mg PO DAILY [facility] Last Admin: 03/28/21 09:50 Dose: Not Given Documented by: MYRA Non-Elier Reason: too lethargic Labs CBC & Chem 7: 03/28/21 07:41 03/28/21 07:41 Labs: Laboratory Results - last 24 hr 03/27/21 03/27/21 03/28/21 12:15 12:15 07:41 MCV 90.7 91.1 MCH 29.2 28.3 MCHC 32.2 31.1 RDW 15.9 16.3 H Plt Count 363 269 D MPV 9.8 10.4 Immature Gran % (Auto) Cancelled Cancelled Neut % (Auto) Cancelled Cancelled Lymph % (Auto) Cancelled Cancelled [place] % (Auto) Cancelled Cancelled Eos % (Auto) Cancelled Cancelled Baso % (Auto) Cancelled Cancelled Lymph # (Auto) Cancelled Cancelled [place] # (Auto) Cancelled Cancelled Eos # (Auto) Cancelled Cancelled Baso # (Auto) Cancelled Cancelled Abs Immat Gran (auto) Cancelled Cancelled Absolute Neuts (auto) Cancelled Cancelled Absolute Nucleated RBC 0.000 0.000 Nucleated RBC % (auto) 0.0 0.0 Neutrophils % (Manual) 87 H 80 H Band Neutrophils % 5 16 H Lymphocytes % (Manual) 1 L 3 L Monocytes % (Manual) 7 1 L Abs Neuts (Manual) 34.3 H 18.9 H Lymphocytes # (Manual) 0.4 L 0.6 Monocytes # (Manual) 2.6 H 0.2 Toxic Vacuolation PRESENT Platelet Estimate NORMAL NORMAL Plt Morphology Comment NORMAL NORMAL RBC Morphology NOTED NOTED Hypochromasia 1+ (5-14) Tear Drop Cells 1+ (0-2) Ovalocytes 1+ (5-14) 1+ (5-14) Acanthocytes (Spur) 1+ (0-2) 1+ (0-2) Smear Path Review SEE NOTE Anion Gap 19 Estim Creat Clear Calc 53.7 Estimated GFR 39 POC Glucose Random Glucose 165 H Calcium 9.7 D 03/28/21 03/28/21 03/28/21 07:41 09:13 11:27 MCV MCH MCHC RDW Plt Count MPV Immature Gran % (Auto) Neut % (Auto) Lymph % (Auto) [place] % (Auto) Eos % (Auto) Baso % (Auto) Lymph # (Auto) [place] # (Auto) Eos # (Auto) Baso # (Auto) Abs Immat Gran (auto) Absolute Neuts (auto) Absolute Nucleated RBC Nucleated RBC % (auto) Neutrophils % (Manual) Band Neutrophils % Lymphocytes % (Manual) Monocytes % (Manual) Abs Neuts (Manual) Lymphocytes # (Manual) Monocytes # (Manual) Toxic Vacuolation Platelet Estimate Plt Morphology Comment RBC Morphology Hypochromasia Tear Drop Cells Ovalocytes Acanthocytes (Spur) Smear Path Review Anion Gap 21 H Estim Creat Clear Calc 26.4 Estimated GFR 17 POC Glucose 67 104 Random Glucose 89 Calcium 8.7 D Assessment and Plan (1) Intractable abdominal pain: Status: Acute (2) Morbid obesity: Status: Acute (3) Hypertension: Status: Acute (4) Acute renal failure: Status: Acute (5) Leukocytosis: Status: Acute (6) Hypotension: Status: Acute Assessment and Plan: 70-year-old female with an extensive past medical history who presents to the hospital with complaints of diffuse abdominal pain, admitted for intractable abdominal pain/constipation # hypotension/lethargy/hypoxia/hypoglycemia No encephalopathy Patient this morning noted to be lethargic although arousable and appropriate symptoms likely due to recent use of Bumex, multiple antihypertensive medications, IV Dilaudid/,iv morphine Patient treated with Narcan, IV fluid bolus, D50 and non-rebreather mask ABG stable, will gradually wean oxygen, continue IV fluid Spoke with patient's and updated patient's clinical condition at bedside. # acute renal failure Multifactorial due to hypotension, reviewed recent use of Bumex and losartan Will discontinue Bumex and losartan treat with IV fluids follow renal function if no improvement , obtain nephrology consult, follow urine output # acute intractable abdominal pain Abdominal pain this morning workup including labs,and imaging studies showed no significant abnormality to explain her abdominal discomfort ? CT angiogram showed no vascular disease, CT? abdomen showed no abnormality except diverticulosis with no diverticulitis and constipation ? Will DC IV morphine /patient had small amount of stool will follow clinical course # acute leukocytosis, patient has chronic leukocytosis due to steroids likely worsening leukocytosis due to high-dose IV Solu Medrol, no fevers, no chills, normal urinalysis, CTA chest and abdomen showed no evidence of infection ?? WBC trending down # morbid obesity weight reduction recommended # lymphedema - chronic, negative venous duplex study for DVT, recently started on Bumex, noted to have worsening BUN follow clinical course and dc Bumex # hypothyroidism - continue levothyroxine # hypertension - noted to have significantly elevated blood pressure on arrival to ED 226/106, patient treated in the emergency room with multiple antihypertensive now hypotensive ? Will hold antihypertensive and follow BP closely. # asthma -? no acute exacerbation, continue home inhalers DVT prophylaxis heparin subQ Quality Stroke Does the patient have a stroke diagnosis?: No VTE Prior VTE?: No VTE Risk Level:: Medical - moderate - high VTE Device Contraindication: Treatment Not Indicated VTE Drug Contraindication: N/A - Med Ordered
[2021-03-28] MEDS: Naloxone HCl 0.4 MG/ML VIAL IVPUSH (12:23)
--- NOTE | 2021-03-28 16:15 | P.CONNP_ITS ---
History of Present Illness Reason for Consult Consult date: 03/28/21 Reason for consult: MAIRA Requesting physician: Ann Ding Chief Complaint Chief complaint: Intractable abd pain History of Present Illness Narrative: 70 y/o Obese F adm abd pain with ext w/u including CTA abd and chest and now Oliguric MAIRA after 3.5 L IVF and SPB unobtainbale by marley. She had received narcotics for pain and with narcan she woke up but BPs remain very low and no UOP. ICU is eval and planning to take her to ICU shortly Multiple chronic med probs including: Obesity, lymphedema, RA and skin rash and maintained on steroids. 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 Asthma GERD (gastroesophageal reflux disease) History of renal calculi Hypertension Interstitial lung disease Morbid obesity Multinodular thyroid Obstructive sleep apnea Post-menopausal Rheumatoid arthritis Screening for hyperlipidemia Swelling of lower extremity Thyroid nodule Valvular heart disease Family History Family History Father CVD (cardiovascular disease) Mother CVD (cardiovascular disease) Hypertension Myocardial infarction Pertinent family history: Family history as above Surgical History Surgical History History of cholecystectomy History of colonoscopy History of D&C History of umbilical hernia repair Social History Social History Household Members: Significant Other Housing: House Do you presently have visiting nurse or other home services: No Alcohol intake: never Patient Tobacco Use Status: Never used Tobacco e-Cigarette/Vaping Use: Never Used Second Hand Smoke Exposure: No service: No Current occupational status: retired and disabled Meds Allergies Allergy/AdvReac Type Severity Reaction Status Date / Time amlodipine Allergy Unknown Unknown Verified 03/21/21 15:39 atenolol Allergy Unknown Unknown Verified 03/21/21 15:39 atorvastatin [Lipitor] Allergy Unknown Unknown Verified 03/21/21 15:39 ciprofloxacin [Cipro] Allergy Unknown Unknown Verified 03/21/21 15:39 Doxycycline Hyclate Allergy Unknown Unknown Verified 03/21/21 15:39 hydrochlorothiazide Allergy Unknown Unknown Verified 03/21/21 15:39 Iodinated Contrast Media Allergy Unknown DIFFICULTY Verified 03/21/21 15:39 [CONTRAST, IV] BREATHING levofloxacin [Levaquin] Allergy Unknown Unknown Verified 03/21/21 15:39 lisinopril Allergy Unknown Unknown Verified 03/21/21 15:39 penicillin V Allergy Unknown rash Verified 03/21/21 15:39 Penicillins Allergy Unknown RASH, DIFF Verified 03/21/21 15:39 BREATHING TO ALL CILLIN DRUGS pseudoephedrine [Sudafed] Allergy Unknown Unknown Verified 03/21/21 15:39 strawberry Allergy Unknown Unknown Verified 03/21/21 15:39 Sulfa (Sulfonamide Allergy Unknown DIFFICULTY Verified 03/21/21 15:39 Antibiotics) BREATHING, [SULFA (SULFONAMIDE HIVES ANTIBIOTICS)] Tetracyclines [TETRACYCLINES] Allergy Unknown ? RXN Verified 03/21/21 15:39 valsartan [Diovan] Allergy Unknown Unknown Verified 03/21/21 15:39 verapamil Allergy Unknown Unknown Verified 03/21/21 15:39 Active Medications: Current Medications Acetaminophen (Acetaminophen 325 Mg Tablet) 650 mg PO Q6H PRN PRN Reason: Pain, Mild (Pain Scale 1-3) Last Admin: 03/27/21 20:27 Dose: 650 mg Documented by: Albuterol Sulfate (Albuterol Sulfate 90 Mcg 8 Gm Inhaler) 2 puff INHALE Q4H PRN PRN Reason: shortness of breath or wheezing Clotrimazole (Clotrimazole 1 % Cream 15 Gm Tube) 1 appl TOPICAL BID [facility]; Protocol Last Admin: 03/28/21 09:54 Dose: 1 appl Documented by: Cyanocobalamin (Cyanocobalamin (Vitamin B-12) 1,000 Mcg Tablet) 1,000 mcg PO DAILY [facility] Last Admin: 03/28/21 09:49 Dose: Not Given Documented by: Docusate Sodium (Docusate Sodium 100 Mg Capsule) 100 mg PO BID [facility] Last Admin: 03/28/21 09:49 Dose: Not Given Documented by: Gabapentin (Gabapentin 100 Mg Capsule) 100 mg PO BEDTIME [facility] Last Admin: 03/27/21 20:27 Dose: 100 mg Documented by: Dextrose/Sodium Chloride (D5ns) 1,000 mls @ 125 mls/hr IVCONT .Q8H [facility] Last Admin: 03/28/21 10:51 Dose: 125 mls/hr Documented by: Sodium Chloride (Ns) 1,000 mls @ 999 mls/hr IVCONT .Q1H1M [facility] Stop: 03/28/21 16:30 Naloxone HCl 5 mg/ Dextrose 105 mls @ 42 mls/hr IV .Q2H30M [facility] Multivitamins/Vitamin C (Multivitamin Tablet) 1 tab PO DAILY [facility] Last Admin: 03/28/21 09:49 Dose: Not Given Documented by: Naloxone HCl (Naloxone Hcl 0.4 Mg/Ml Vial) 0.8 mg IVPUSH Q2H [facility] Stop: 03/28/21 19:05 Ondansetron HCl (Ondansetron Hcl 4 Mg/2 Ml Vial) 4 mg IVPUSH Q8H PRN PRN Reason: Nausea and Vomiting Last Admin: 03/27/21 09:24 Dose: 4 mg Documented by: Polyethylene Glycol (Polyethylene Glycol 3350 17 Gm Powd.Pack) 17 gm PO DAILY [facility] Last Admin: 03/28/21 09:50 Dose: Not Given Documented by: Sodium Chloride (0.9 % Sodium Chloride Flush 3 Ml Syringe) 3 ml IVFLUSH QSHIFT [facility] Last Admin: 03/28/21 09:54 Dose: 3 ml Documented by: Vitamin D (Cholecalciferol (Vitamin D3) 25 Mcg Tablet) 25 mcg PO DAILY [facility] Last Admin: 03/28/21 09:48 Dose: Not Given Documented by: Zinc Sulfate (Zinc Sulfate 220 Mg Capsule) 220 mg PO DAILY [facility] Last Admin: 03/28/21 09:50 Dose: Not Given Documented by: Home Medications Medication Instructions Recorded Confirmed Last Taken Type ascorbic acid (vitamin C) 500 mg See Rx Instructions .ROUTE .COMPLEX 04/19/20 03/27/21 Unknown History capsule calcium carbonate 600 mg calcium 600 mg PO DAILY 04/19/20 03/27/21 Unknown History (1,500 mg) tablet (Calcium) cholecalciferol (vitamin D3) 25 25 mcg PO DAILY 04/19/20 03/27/21 Unknown History mcg (1,000 unit) capsule coenzyme Q10 10 mg capsule (Co 10 mg PO DAILY cap 04/19/20 03/27/21 Unknown History Q-10) cyanocobalamin (vitamin B-12) 1,000 mcg PO DAILY 04/19/20 03/27/21 Unknown History 1,000 mcg capsule multivitamin 1 tab PO DAILY 04/19/20 03/27/21 Unknown History omega-3 fatty acids 1,000 mg 1,000 mg PO DAILY 04/19/20 03/27/21 Unknown History capsule ciclopirox 0.77 % topical cream See Protocol TOPICAL USEASDIRECTD 05/12/20 03/27/21 Unknown History (Loprox (as olamine)) ketoconazole 2 % topical cream See Rx Instructions .ROUTE .COMPLEX 05/12/20 03/27/21 Unknown History triamcinolone acetonide 0.1 % See Rx Instructions .ROUTE .COMPLEX 05/12/20 03/27/21 Unknown History topical cream glucosamine sulf NaCl-chondroitin See Rx Instructions .ROUTE .COMPLEX 09/06/20 03/27/21 Unknown History sulf sodium 750 mg-400 mg oral pack ipratropium 0.5 mg-albuterol 3 mg 3 ml INHALATION Q4-6H PRN 09/06/20 03/27/21 Unknown History (2.5 mg base)/3 mL nebulization soln zinc 22 mg tablet 20 mg PO DAILY tab 10/06/20 03/27/21 Unknown History prednisone 10 mg tablet 20 mg PO DAILY 03/21/21 03/27/21 Unknown History gabapentin 100 mg capsule 1 cap PO BEDTIME 03/27/21 03/27/21 Unknown History Physical Exam Vital Signs: Last Vital Signs Temp 96.9 F 03/28/21 11:28 Pulse 94 03/28/21 15:53 Resp 24 H 03/28/21 11:28 BP 76/49 L 03/28/21 11:28 Pulse Ox 95 03/28/21 15:53 Body Mass Index 51.5 Const General: no acute distress, ill appearing and lethargic Orientation/consciousness: lethargic Limitations: no limitations HENMT Head: Yes normal to inspection Eyes General: appearance normal, both eyes and all related structures Pupils: Equal, round and reactive pupils present Neck Neck: Yes normal visual inspection and Yes full ROM Cardio Rate: regular rate Rhythm: regular rhythm Heart sounds: normal S1 and S2 GI Other: Patient demonstrates tenderness on minimal palpation of the abdomen diffusely, no rebound or guarding elicited Inspection: Yes normal to inspection Palpation (GI): Soft to palpation and Tenderness to palpation present (GI) in the epigastrum, in the LLQ and in the RLQ Auscultation: normal bowel sounds Neuro Cranial nerves: Yes Equal, round and reactive pupils present Cognition (Neuro): normal cognition Extrem General: Yes normal to inspection, Yes no pedal edema, No no calf tenderness (bilateral calf tenderness) and Yes edema (1+ pitting) Results Lab Results Result Diagrams: 03/28/21 07:41 03/28/21 07:41 Lab results: Chemistry 03/26/21 03/27/21 03/28/21 10:19 12:15 07:41 Sodium 141 140 136 Potassium 4.4 4.3 4.7 Carbon Dioxide 29 25 22 BUN 48 H D 51 H 69 H Creatinine 1.11 1.36 2.76 H Calcium 10.5 H D 9.7 D 8.7 D Hematology 03/26/21 03/27/21 03/28/21 10:19 12:15 07:41 WBC 13.8 H 37.3 H* 19.7 H Hgb 14.1 14.7 12.7 Plt Count 341 363 269 D Urinalysis 03/26/21 13:24 Urine Color YELLOW Urine Appearance HAZY Urine pH 6.0 Ur Specific Perry 1.025 Urine Protein TRACE Urine Glucose (UA) NEG Urine Ketones NEG Urine Blood 1+ H Urine Nitrite NEG Ur Leukocyte Esterase NEG Urine RBC 1-4 Urine WBC 1-4 Ur Squamous Epith Cells 2+ Assessment and Plan (1) Intractable abdominal pain: Status: Acute (2) Morbid obesity: Status: Acute (3) Hypertension: Qualifiers: Hypertension type: essential hypertension Qualified Code(s): I10 - Essential (primary) hypertension Status: Acute (4) Acute renal failure: Start date: 03/28/21 Status: Acute Oligoanuric MAIRA: multifact including ischemic ATN, IV dye loadmajor factors no UOP despite 3.5 Liters IVF REC: xfer to ICU, Kimber and optimize HDynamics as may need pressors, IV albumin; no indication for HD yet but will follow clsoley with med team and ICU (5) Leukocytosis: Status: Acute (6) Hypotension: Qualifiers: Hypotension type: unspecified hypotension type Qualified Code(s): I95.9 - Hypotension, unspecified Status: Acute 70-year-old female with an extensive past medical history who presents to the hospital with complaints of diffuse abdominal pain, admitted for intractable abdominal pain/constipation # hypotension/lethargy/hypoxia/hypoglycemia No encephalopathy Patient this morning noted to be lethargic although arousable and appropriate symptoms likely due to recent use of Bumex, multiple antihypertensive medications, IV Dilaudid/,iv morphine Patient treated with Narcan, IV fluid bolus, D50 and non-rebreather mask ABG stable, will gradually wean oxygen, continue IV fluid Spoke with patient's and updated patient's clinical condition at bedside. # acute renal failure Multifactorial due to hypotension, reviewed recent use of Bumex and losartan Will discontinue Bumex and losartan treat with IV fluids follow renal function if no improvement , obtain nephrology consult, follow urine output # acute intractable abdominal pain Abdominal pain this morning workup including labs,and imaging studies showed no significant abnormality to explain her abdominal discomfort ? CT angiogram showed no vascular disease, CT? abdomen showed no abnormality except diverticulosis with no diverticulitis and constipation ? Will DC IV morphine /patient had small amount of stool will follow clinical course # acute leukocytosis, patient has chronic leukocytosis due to steroids likely worsening leukocytosis due to high-dose IV Solu Medrol, no fevers, no chills, normal urinalysis, CTA chest and abdomen showed no evidence of infection ?? WBC trending down # morbid obesity weight reduction recommended # lymphedema - chronic, negative venous duplex study for DVT, recently started on Bumex, noted to have worsening BUN follow clinical course and dc Bumex # hypothyroidism - continue levothyroxine # hypertension - noted to have significantly elevated blood pressure on arrival to ED 226/106, patient treated in the emergency room with multiple antihypertensive now hypotensive ? Will hold antihypertensive and follow BP closely. # asthma -? no acute exacerbation, continue home inhalers DVT prophylaxis heparin subQ Procedures Date of Service Date of Service: 03/28/21
--- NOTE | 2021-03-28 16:27 | PM.CCN ---
Critical Care Event Note Summary Date of Service: 03/28/21 Code activated: No Narrative: 70-year-old lady with underlying morbid obesity, interstitial lung disease, hypertension, obstructive sleep apnea, chronic lymphadenopathy admitted on 03/27/2021 with this acute abdominal pain and hypertensive urgency with essentially normal a CT angiogram of chest/abdomen/pelvis. The patient has been treated with multiple antihypertensive agents and parenteral opioids. This a.m. patient with acute kidney failure with oliguria, lethargy, and hypotension. Arterial blood gas was normal oxygenation and no evidence of CO2 retention. She has been given 3 liters of IV fluids and has required several doses of Narcan with improvement in her mentation and blood pressure, however her hypotension and lethargy continue to recur. On exam patient is groggy, but answering appropriately, oriented x3 Morbidly obese Systolic blood pressure in 80s Normoxemic on room air Abdomen soft, but diffuse mild tenderness to palpation with no rebound or guarding Lower extremities with bilateral 1+ edema Patient transferred to the intensive care unit for Narcan drip and also started on clindamycin as empiric coverage for possible aspiration event. Critical Care Time (minutes): 30
[2021-03-28 17:13] LABS: Hematocrit 40.4 % (37-47); Hemoglobin 12.6 g/dl (12.0-16.0); Mean Corpuscular HGB Conc 31.2 g/dl (31.0-35.0); Mean Corpuscular Hemoglobin 28.8 pg (27.0-33.0); Mean Corpuscular Volume 92.4 fL (80-98); Mean Platelet Volume 10.3 fL (9.4-12.3); Platelet Count 240 X10*3/uL (160-400); Red Blood Count 4.37 X10*6/uL (4.20-5.50); Red Cell Distribution Width 16.7 % (11.0-16.0)
[2021-03-28 17:16] LABS: WBC ABN SCTR FOR CBC 1
[2021-03-28 17:23] LABS: Appearance Urine HAZY; Color Urine YELLOW; Glucose Urine UA NEG (NEG); Leukocyte Esterase Urine NEG (NEG); Nitrite Urine POS (NEG); Urine Blood TRACE (NEG); Urine Ketones NEG (NEG); Urine Protein 2+ MG/DL (NEG-TRACE)
[2021-03-28] MEDS: Clindamycin Phosphate/D5W 300 MG/50 ML PIGGYBACK 100 MG IV (17:32)
[2021-03-28 17:35] LABS: Creatinine Urine 105.73 mg/dL
[2021-03-28 17:39] LABS: Amphetamine Screen Urine Not Detected (Not Detect); Barbiturates, Urine Not Detected (Not Detect); Benzodiazepines Screen Urine Not Detected (Not Detect); Cannabinoid Screen Urine Not Detected (Not Detect); Cocaine Screen Urine Not Detected (Not Detect); Fentanyl, urine Not Detected (Not Detect); Opiate Screen Urine POSITIVE (Not Detect); Phencyclidine Screen Urine Not Detected (Not Detect)
[2021-03-28 17:42] LABS: Alanine Aminotransferase 14 U/L (0-31); Albumin Level 2.4 g/dL (3.5-5.0); Alkaline Phosphatase 106 U/L (39-117); Anion Gap 18 (12-20); Aspartate Amino Transferase 33 U/L (5-31); Bilirubin Total 1.3 mg/dL (0.0-1.0); Blood Urea Nitrogen 73 mg/dL (9-16); Calcium 7.6 mg/dL (8.4-10.2); Carbon Dioxide 23 mmol/L (22-29); Chloride 101 mmol/L (96-108); Estimated Glomerular Filt Rate 14; Glucose Random 98 mg/dL (60-115); Potassium 4.8 mmol/L (3.3-5.1); Sodium 137 mmol/L (135-145); Total Protein 5.1 g/dL (6.5-8.0)
[2021-03-28 17:43] LABS: Bacteria Urine 3+ /LPF; RBC Urine 0-2 /HPF (0); Squamous Epithelial Cell Urine TRACE /LPF
[2021-03-28 17:54] LABS: Acanthocytes 2+ (3-5) /OIF; Band Neutrophils Percent 74 % (3-5); Lymphocytes Percent Manual 8 % (20-40); Metamyelocytes Percent 7 %; Monocytes Percent Manual 2 % (2-11); Neutrophils Percent Manual 9 % (45-73); Platelet Estimate NORMAL (NORMAL); Platelet Morphology Comment NORMAL; RBC Morphology NOTED
[2021-03-28 17:55] LABS: Lymphocytes Absolute Manual 1.1 X10*3/uL (0.6-4.8); Metamyelocytes Absolute 0.9 X10*3/uL; Monocytes Absolute Manual 0.3 X10*3/uL (0.0-1.2); White Blood Count 13.2 X10*3/uL (4.8-10.8)
--- NOTE | 2021-03-28 18:26 | PC.NURSE ---
Pt transfered to ICU at 1700, pt lethargic rouses to name and hold conversation for less than 3 sec while waiting for narcan drip, oriented x3. SBP 80s , MAP goal ~60 per MD Gabriel. Pt has made roughly 80ml of urine in total today and was not incontinent either at any point today. U/O now is roughly 5ml/hr or less, MD aware. BUN/Cr trending up, MD aware. Pt was given roughly 4L of fluid today as well. Narcan drip started at 2mg/hr, pt will now hold conversations for roughly 10-15 sec, PUPILS 3MM PERRLA. Pharmacy will provide enough narcan bags. Given x1 dose clindamycin for question ASP PNA, cefepime ordered, waiting for verification and waiting for blood cultures to be drawn. U/A is now + for nitrites 3+ bacteria and neutrophil BAND % went from 16% this am to 74%. Not enough urine available for culture, mariscal is clamped at this time for urine culture aquisition. BP now 101/68. aware.
[2021-03-28 19:25] LABS: Lactic Acid 4.6 mmol/L (0.5-2.0)
--- NOTE | 2021-03-28 20:25 | W.PM.CCHP ---
Procedures Date of Service Date of Service: 03/28/21 Central Line Placement Right IJ: Central Line Comments: venous access needed Consent for Procedure: Emergent-no informed consent obtained Time out performed: Yes Sterile Technique Used: Yes Patient placed on monitor/pulse ox: Yes MD prep: mask, gown and gloves Central line prep: Chlorhexidine scrub and sterile drapes applied Local anesthesia used: lidocaine 2% Amount of anesthesia used (ml): 3 Ultrasound used for placement: Yes Central line lumen inserted: triple Post procedure: sutured in place, good blood return, all ports aspirated, flushed, capped and sterile dressing applied Post procedure x-ray: tip of catheter in good position and no pneumothorax seen Patient tolerated procedure: well and no complications Complications: none
[2021-03-28] MEDS: cefEPime HCl 1 GM in 0.9 % Sodium Chloride 50 ML IV (20:43)
[2021-03-28] MEDS: Albumin Human 25 % 100 ML IV (20:43)
[2021-03-28 21:00] LABS: Reflex Lactate? Lactic Acid Added
[2021-03-28 21:29] LABS: ~Lactic Acid-LAB USE ONLY 3.3 mmol/L (0.5-2.0)
[2021-03-28] MEDS: metroNIDAZOLE/NS 500 MG/100 ML PIGGYBACK 100 MG IV (21:46)
[2021-03-28 23:12] LABS: Reflex Lactate? 2 Y
[2021-03-28 23:48] LABS: ~Lactic Acid-LAB USE ONLY 2.3 mmol/L (0.5-2.0)
[2021-03-29] VITALS (25 sets, daily range): BP systolic 85–101; BP diastolic 36–67; PULSE 84–134; RESP 18–33; TEMP 36.1–36.9; O2SAT 90–96; BMI 113.2
[2021-03-29 00:06] LABS: Cancel Lactic Acid Canceled
[2021-03-29] MEDS: ondansetron HCL 4 MG/2 ML VIAL IVPUSH (00:36)
[2021-03-29] MEDS: Albumin Human 25 % 100 ML IV ×3 (02:13→13:17)
[2021-03-29 05:33] LABS: VBG Base Excess -1.9 mmol/L; VBG HCO3 22 mmol/L (22-26); VBG pCO2 34 mmHg; VBG pO2 53 mmHg
[2021-03-29 05:39] LABS: Hematocrit 33.7 % (37-47); Hemoglobin 10.7 g/dl (12.0-16.0); Mean Corpuscular HGB Conc 31.8 g/dl (31.0-35.0); Mean Corpuscular Hemoglobin 28.8 pg (27.0-33.0); Mean Corpuscular Volume 90.6 fL (80-98); Mean Platelet Volume 10.6 fL (9.4-12.3); Platelet Count 220 X10*3/uL (160-400); Red Blood Count 3.72 X10*6/uL (4.20-5.50); Red Cell Distribution Width 16.7 % (11.0-16.0); WBC ABN SCTR FOR CBC 1
[2021-03-29] MEDS: metroNIDAZOLE/NS 500 MG/100 ML PIGGYBACK 100 MG IV (05:42)
[2021-03-29 06:02] LABS: Albumin Level 2.8 g/dL (3.5-5.0); Anion Gap 18 (12-20); Blood Urea Nitrogen 76 mg/dL (9-16); Calcium 7.9 mg/dL (8.4-10.2); Carbon Dioxide 22 mmol/L (22-29); Chloride 101 mmol/L (96-108); Creatinine Clr Calc Pharmacy 22.4; Estimated Glomerular Filt Rate 14; Glucose Random 108 mg/dL (60-115); Magnesium 3.4 mg/dL (1.6-2.6); Phosphorus 6.5 mg/dL (2.7-4.5); Potassium 4.8 mmol/L (3.3-5.1); Sodium 136 mmol/L (135-145)
[2021-03-29 06:04] LABS: Band Neutrophils Percent 30 % (3-5); Burr Cells 2+ (3-5) /OIF; Eosinophils Absolute Manual 0.1 X10*3/UL (0.0-0.8); Eosinophils Percent Manual 1 % (0-4); Lymphocytes Absolute Manual 0.3 X10*3/uL (0.6-4.8); Lymphocytes Percent Manual 3 % (20-40); Monocytes Absolute Manual 0.8 X10*3/uL (0.0-1.2); Monocytes Percent Manual 7 % (2-11); Neutrophils Absolute Manual 9.8 X10*3/uL (2.2-7.9); Neutrophils Percent Manual 59 % (45-73); Platelet Estimate NORMAL (NORMAL); RBC Morphology NOTED; Toxic Vacuolation PRESENT
[2021-03-29 06:05] LABS: Platelet Morphology Comment NORMAL
[2021-03-29 06:17] LABS: Venous Blood Gas Refer to POC result
--- NOTE | 2021-03-29 06:48 | PC.NURSE ---
Upon initial assessment at 1900- pt lethargic, disoriented, at bedside, moaning in pain. Narcan gtt running per order. New medication orders, see emar. SBP dropping to 70s (MAP 50s), UOP 15 ml/hr. Insufficient venous access. TLC to R IJ placed by PA, confirmed by pCXR, levophed gtt ordered but never started as BP improved. Afebrile. NSR on tele. MAP > 60. Overnight, pt gradually became more alert, narcan gtt discontinued this AM. A&Ox3, vague to situation. Converted to afib this AM on tele during shift change, oncoming RN made aware, HR up to 130s. UOP improving to approx 100 ml/hr. Refused repositioning until 0700, on prevalon system. Buttocks red but blanching, fungal to folds, especially left abdomen, partial bath given, interdry applied to folds.
--- NOTE | 2021-03-29 07:40 | ECG_ITS ---
Test Reason : AFIB Blood Pressure : / mmHG Vent. Rate : 107 BPM Atrial Rate : 131 BPM P-R Int : 000 ms QRS Dur : 102 ms QT Int : 330 ms P-R-T Axes : 000 008 -05 degrees QTc Int : 440 ms Atrial fibrillation with rapid ventricular response Possible Inferior infarct , age undetermined Abnormal ECG When compared with ECG of 26-MAR-2021 15:57, Atrial fibrillation has replaced Sinus rhythm T wave inversion now evident in Inferior leads T wave amplitude has decreased in Anterior leads Premature ventricular complexes are no longer Present Referred By: Wing Gabriel Electronically Signed By:CHRIS OROZCO
[2021-03-29] MEDS: Heparin Sodium,Porcine 5,000 UNIT/ML VIAL 5000 UNIT SUBCUT ×3 (08:04→23:31)
[2021-03-29] MEDS: cefEPime HCl 1 GM in 0.9 % Sodium Chloride 50 ML IV ×2 (08:04→18:14)
[2021-03-29] MEDS: 0.9 % Sodium Chloride Flush 3 ML SYRINGE IVFLUSH ×3 (08:05→23:44)
[2021-03-29] MEDS: Acetaminophen 325 MG TABLET 650 MG PO (08:05)
[2021-03-29] MEDS: polyethylene glycoL 3350 17 GM POWD.PACK PO (08:06)
[2021-03-29] MEDS: Clotrimazole 1 % Cream 15 GM TUBE 1 APPL TOPICAL ×2 (08:06→22:01)
[2021-03-29] MEDS: Bumetanide 1 MG/4 ML VIAL 2 MG IVPUSH (08:31)
--- NOTE | 2021-03-29 10:08 | P.PNNP_ITS ---
Subjective Subjective Date of Service: 03/29/21 Principal diagnosis: MAIRA Interval history: Less lethargic this am PT seen and examined, events noted CAse d/w ICU team Incr UOP Physical Exam Vital Signs: Vital Signs: Last Vital Signs Temp 97.0 F 03/29/21 08:00 Pulse 104 H 03/29/21 10:00 Resp 26 H 03/29/21 10:00 BP 87/41 L 03/29/21 10:00 Pulse Ox 93 03/29/21 10:00 Body Mass Index 51.5 Const: General: no acute distress, ill appearing and lethargic Orientation/consciousness: lethargic Limitations: no limitations HENMT: Head: Yes normal to inspection Eyes: General: appearance normal, both eyes and all related structures Pupils: Equal, round and reactive pupils present Neck: Neck: Yes normal visual inspection and Yes full ROM Resp: Effort & Inspection: normal respiratory effort and able to speak in complete sentences Auscultation: clear to auscultation bilaterally Cardio: Rate: regular rate Rhythm: regular rhythm Heart sounds: normal S1 and S2 GI: Other: Patient demonstrates tenderness on minimal palpation of the abdomen diffusely, no rebound or guarding elicited Inspection: Yes normal to inspection Palpation (GI): Soft to palpation and Tenderness to palpation present (GI) in the epigastrum, in the LLQ and in the RLQ Auscultation: normal bowel sounds Skin: General skin exam: no rashes or lesions noted Neuro: Cranial nerves: Yes Equal, round and reactive pupils present Cognition (Neuro): normal cognition Extrem: General: Yes normal to inspection, Yes no pedal edema, No no calf tenderness (bilateral calf tenderness) and Yes edema (1+ pitting) Objective Data Labs CBC & Chem 7: 03/29/21 05:20 03/29/21 05:20 Labs: Laboratory Results - last 24 hr 03/28/21 03/28/21 03/28/21 07:41 11:27 16:53 WBC 19.7 H RBC Hgb Hct MCV MCH MCHC RDW Plt Count MPV Immature Gran % (Auto) Neut % (Auto) Lymph % (Auto) [place] % (Auto) Eos % (Auto) Baso % (Auto) Lymph # (Auto) [place] # (Auto) Eos # (Auto) Baso # (Auto) Abs Immat Gran (auto) Absolute Neuts (auto) Absolute Nucleated RBC Nucleated RBC % (auto) Neutrophils % (Manual) Band Neutrophils % Lymphocytes % (Manual) Monocytes % (Manual) Eosinophils % (Manual) Metamyelocytes % Abs Neuts (Manual) 18.9 H Lymphocytes # (Manual) 0.6 Monocytes # (Manual) 0.2 Eosinophils # (Manual) Metamyelocytes # Toxic Vacuolation Platelet Estimate Plt Morphology Comment RBC Morphology [place] Cells Acanthocytes (Spur) VBG pH VBG pCO2 VBG pO2 VBG HCO3 VBG O2 Saturation VBG Base Excess Sodium Potassium Chloride Carbon Dioxide Anion Gap BUN Creatinine Estim Creat Clear Calc Estimated GFR POC Glucose 104 Random Glucose Lactic Acid Lactic Acid Fup @ 2Hr Lactic Acid Fup @ 4Hr Calcium Phosphorus Magnesium Total Bilirubin AST ALT Alkaline Phosphatase Total Protein Albumin Urine Color Urine Appearance Urine pH Ur Specific [place] Urine Protein Urine Glucose (UA) Urine Ketones Urine Blood Urine Nitrite Ur Leukocyte Esterase Urine RBC Urine WBC Ur Squamous Epith Cells Urine Bacteria Ur Random Sodium Urine Creatinine Urine Opiates Screen POSITIVE H Urine Fentanyl Screen Not Detected Ur Barbiturates Screen Not Detected Ur Phencyclidine Scrn Not Detected Ur Amphetamines Screen Not Detected U Benzodiazepines Scrn Not Detected Urine Cocaine Screen Not Detected U Marijuana (THC) Screen Not Detected 03/28/21 03/28/21 03/28/21 16:53 16:54 17:05 WBC 13.2 H RBC 4.37 Hgb 12.6 Hct 40.4 MCV 92.4 MCH 28.8 MCHC 31.2 RDW 16.7 H Plt Count 240 MPV 10.3 Immature Gran % (Auto) Cancelled Neut % (Auto) Cancelled Lymph % (Auto) Cancelled [place] % (Auto) Cancelled Eos % (Auto) Cancelled Baso % (Auto) Cancelled Lymph # (Auto) Cancelled [place] # (Auto) Cancelled Eos # (Auto) Cancelled Baso # (Auto) Cancelled Abs Immat Gran (auto) Cancelled Absolute Neuts (auto) Cancelled Absolute Nucleated RBC 0.000 Nucleated RBC % (auto) 0.0 Neutrophils % (Manual) 9 L Band Neutrophils % 74 H Lymphocytes % (Manual) 8 L Monocytes % (Manual) 2 Eosinophils % (Manual) Metamyelocytes % 7 Abs Neuts (Manual) 11.0 H Lymphocytes # (Manual) 1.1 Monocytes # (Manual) 0.3 Eosinophils # (Manual) Metamyelocytes # 0.9 Toxic Vacuolation Platelet Estimate NORMAL Plt Morphology Comment NORMAL RBC Morphology NOTED [place] Cells Acanthocytes (Spur) 2+ (3-5) VBG pH VBG pCO2 VBG pO2 VBG HCO3 VBG O2 Saturation VBG Base Excess Sodium Potassium Chloride Carbon Dioxide Anion Gap BUN Creatinine Estim Creat Clear Calc Estimated GFR POC Glucose Random Glucose Lactic Acid Lactic Acid Fup @ 2Hr Lactic Acid Fup @ 4Hr Calcium Phosphorus Magnesium Total Bilirubin AST ALT Alkaline Phosphatase Total Protein Albumin Urine Color YELLOW Urine Appearance HAZY Urine pH 6.0 Ur Specific [place] 1.020 Urine Protein 2+ H Urine Glucose (UA) NEG Urine Ketones NEG Urine Blood TRACE Urine Nitrite POS H Ur Leukocyte Esterase NEG Urine RBC 0-2 Urine WBC 1-4 Ur Squamous Epith Cells TRACE Urine Bacteria 3+ Ur Random Sodium 77.0 Urine Creatinine 105.73 Urine Opiates Screen Urine Fentanyl Screen Ur Barbiturates Screen Ur Phencyclidine Scrn Ur Amphetamines Screen U Benzodiazepines Scrn Urine Cocaine Screen U Marijuana (THC) Screen 03/28/21 03/28/21 03/28/21 17:05 18:53 21:08 WBC RBC Hgb Hct MCV MCH MCHC RDW Plt Count MPV Immature Gran % (Auto) Neut % (Auto) Lymph % (Auto) [place] % (Auto) Eos % (Auto) Baso % (Auto) Lymph # (Auto) [place] # (Auto) Eos # (Auto) Baso # (Auto) Abs Immat Gran (auto) Absolute Neuts (auto) Absolute Nucleated RBC Nucleated RBC % (auto) Neutrophils % (Manual) Band Neutrophils % Lymphocytes % (Manual) Monocytes % (Manual) Eosinophils % (Manual) Metamyelocytes % Abs Neuts (Manual) Lymphocytes # (Manual) Monocytes # (Manual) Eosinophils # (Manual) Metamyelocytes # Toxic Vacuolation Platelet Estimate Plt Morphology Comment RBC Morphology [place] Cells Acanthocytes (Spur) VBG pH VBG pCO2 VBG pO2 VBG HCO3 VBG O2 Saturation VBG Base Excess Sodium 137 Potassium 4.8 Chloride 101 Carbon Dioxide 23 Anion Gap 18 BUN 73 H Creatinine 3.31 H Estim Creat Clear Calc 22.0 Estimated GFR 14 POC Glucose Random Glucose 98 Lactic Acid 4.6 H* Lactic Acid Fup @ 2Hr 3.3 H* Lactic Acid Fup @ 4Hr Calcium 7.6 L D Phosphorus Magnesium Total Bilirubin 1.3 H AST 33 H D ALT 14 Alkaline Phosphatase 106 Total Protein 5.1 L D Albumin 2.4 L D Urine Color Urine Appearance Urine pH Ur Specific [place] Urine Protein Urine Glucose (UA) Urine Ketones Urine Blood Urine Nitrite Ur Leukocyte Esterase Urine RBC Urine WBC Ur Squamous Epith Cells Urine Bacteria Ur Random Sodium Urine Creatinine Urine Opiates Screen Urine Fentanyl Screen Ur Barbiturates Screen Ur Phencyclidine Scrn Ur Amphetamines Screen U Benzodiazepines Scrn Urine Cocaine Screen U Marijuana (THC) Screen 03/28/21 03/28/21 03/29/21 21:08 23:18 05:20 WBC 11.0 H RBC 3.72 L Hgb 10.7 L Hct 33.7 L MCV 90.6 MCH 28.8 MCHC 31.8 RDW 16.7 H Plt Count 220 MPV 10.6 Immature Gran % (Auto) Cancelled Neut % (Auto) Cancelled Lymph % (Auto) Cancelled [place] % (Auto) Cancelled Eos % (Auto) Cancelled Baso % (Auto) Cancelled Lymph # (Auto) Cancelled [place] # (Auto) Cancelled Eos # (Auto) Cancelled Baso # (Auto) Cancelled Abs Immat Gran (auto) Cancelled Absolute Neuts (auto) Cancelled Absolute Nucleated RBC 0.000 Nucleated RBC % (auto) 0.0 Neutrophils % (Manual) 59 Band Neutrophils % 30 H Lymphocytes % (Manual) 3 L Monocytes % (Manual) 7 Eosinophils % (Manual) 1 Metamyelocytes % Abs Neuts (Manual) 9.8 H Lymphocytes # (Manual) 0.3 L Monocytes # (Manual) 0.8 Eosinophils # (Manual) 0.1 Metamyelocytes # Toxic Vacuolation PRESENT Platelet Estimate NORMAL Plt Morphology Comment NORMAL RBC Morphology NOTED [place] Cells 2+ (3-5) Acanthocytes (Spur) VBG pH VBG pCO2 VBG pO2 VBG HCO3 VBG O2 Saturation VBG Base Excess Sodium Potassium Chloride Carbon Dioxide Anion Gap BUN Creatinine Estim Creat Clear Calc Estimated GFR POC Glucose TNP Random Glucose Lactic Acid Lactic Acid Fup @ 2Hr Lactic Acid Fup @ 4Hr 2.3 H* Calcium Phosphorus Magnesium Total Bilirubin AST ALT Alkaline Phosphatase Total Protein Albumin Urine Color Urine Appearance Urine pH Ur Specific [place] Urine Protein Urine Glucose (UA) Urine Ketones Urine Blood Urine Nitrite Ur Leukocyte Esterase Urine RBC Urine WBC Ur Squamous Epith Cells Urine Bacteria Ur Random Sodium Urine Creatinine Urine Opiates Screen Urine Fentanyl Screen Ur Barbiturates Screen Ur Phencyclidine Scrn Ur Amphetamines Screen U Benzodiazepines Scrn Urine Cocaine Screen U Marijuana (THC) Screen 03/29/21 03/29/21 05:20 05:28 WBC RBC Hgb Hct MCV MCH MCHC RDW Plt Count MPV Immature Gran % (Auto) Neut % (Auto) Lymph % (Auto) [place] % (Auto) Eos % (Auto) Baso % (Auto) Lymph # (Auto) [place] # (Auto) Eos # (Auto) Baso # (Auto) Abs Immat Gran (auto) Absolute Neuts (auto) Absolute Nucleated RBC Nucleated RBC % (auto) Neutrophils % (Manual) Band Neutrophils % Lymphocytes % (Manual) Monocytes % (Manual) Eosinophils % (Manual) Metamyelocytes % Abs Neuts (Manual) Lymphocytes # (Manual) Monocytes # (Manual) Eosinophils # (Manual) Metamyelocytes # Toxic Vacuolation Platelet Estimate Plt Morphology Comment RBC Morphology [place] Cells Acanthocytes (Spur) VBG pH 7.40 VBG pCO2 34 VBG pO2 53 VBG HCO3 22 VBG O2 Saturation 82.0 VBG Base Excess -1.9 Sodium 136 Potassium 4.8 Chloride 101 Carbon Dioxide 22 Anion Gap 18 BUN 76 H Creatinine 3.26 H Estim Creat Clear Calc 22.4 Estimated GFR 14 POC Glucose Random Glucose 108 Lactic Acid Lactic Acid Fup @ 2Hr Lactic Acid Fup @ 4Hr Calcium 7.9 L Phosphorus 6.5 H Magnesium 3.4 H Total Bilirubin AST ALT Alkaline Phosphatase Total Protein Albumin 2.8 L Urine Color Urine Appearance Urine pH Ur Specific [place] Urine Protein Urine Glucose (UA) Urine Ketones Urine Blood Urine Nitrite Ur Leukocyte Esterase Urine RBC Urine WBC Ur Squamous Epith Cells Urine Bacteria Ur Random Sodium Urine Creatinine Urine Opiates Screen Urine Fentanyl Screen Ur Barbiturates Screen Ur Phencyclidine Scrn Ur Amphetamines Screen U Benzodiazepines Scrn Urine Cocaine Screen U Marijuana (THC) Screen Microbiology Microbiology Results: Microbiology 03/28/21 18:53 Blood - Venous Blood Culture - Preliminary Prelim: GNR Gram Stain only Procedures Date of Service Date of Service: 03/29/21 Assessment & Plan Assessment and plan (1) Acute renal failure: Start date: 03/28/21 Start time: 10:11 Status: Acute Assessment and Plan: Oligoanuric MAIRA: multifact including ischemic ATN, IV dye load and GN Sepsis all major factors now with incr UOP and SCr stabilizing are good signs GN Sepsis Hypervol AMS: imporving with narcan REC: conttotrack UOP/renal fucn; avoid RASi; consider IV albumin; no indication for HD yet but will follow clsoley with med team and ICU Time Spent With Patient Time: Total time spent is greater than 50% in coordination of care (as document ed) at patient's floor/unit and/or counseling patient: Time with patient: 25 - 35 minutes Progress Note: Quality Stroke Does the patient have a stroke diagnosis?: No
--- NOTE | 2021-03-29 11:53 | P.PNCC_ITS ---
Subjective Subjective Date of Service: 03/29/21 Interval History: 70-year-old lady with underlying morbid obesity, interstitial lung disease, hypertension, obstructive sleep apnea, chronic lymphedema admitted on 03/27/2021 with diffuse abdominal pain and hypertensive urgency with essentially normal CT angiogram of chest/abdomen/pelvis.? The patient has been treated with multiple antihypertensive agents and parenteral opioids.? On 03/28/2021 patient with acute kidney failure with oliguria, lethargy, and hypotension.? Arterial blood gas with normal oxygenation and no evidence of CO2 retention. Patient?has been given 3 liters of IV fluids and has required several doses of Narcan with improvement in her mentation and blood pressure, however her hypotension and lethargy continue to recu, thus she was transferred to intensive care unit staff that on Narcan drip with improvement in her blood pressure and mental status. Her UA was noted to be positive for nitrites and was pending cultures she has been started on broad-spectrum antibiotic coverage. Overnight titrated off Narcan drip. Blood cultures 2/2 positive for Gram- negative zoie. Critical Care Time (minutes): 45 Physical Exam Vital Signs: Vital Signs: Last Vital Signs Temp 97.0 F 03/29/21 08:00 Pulse 121 H 03/29/21 11:00 Resp 26 H 03/29/21 11:00 BP 96/57 L 03/29/21 11:00 Pulse Ox 94 03/29/21 11:00 Body Mass Index 51.5 Const: General: no acute distress, awake and lethargic (Arousable) Nutritional Appearance: obese Orientation/consciousness: lethargic (Arousable) Eyes: Sclerae: sclerae normal EOM: EOMs intact bilaterally Neck: Neck: Yes no lymphadenopathy, Yes trachea midline and Yes supple Resp: Effort & Inspection: normal respiratory effort and no respiratory distress Auscultation: crackles (bibasilar) Cardio: Rate: tachycardic Rhythm: abnormal rhythm irregularly irregular Heart sounds: no gallops, no murmurs and no rubs GI: Palpation (GI): Soft to palpation and Other GI palpation findings present ( Nontender) Auscultation: normal bowel sounds Extrem: General: No clubbing, No cyanosis and Yes edema (2+ bilateral) Objective Data Labs CBC & Chem 7: 03/29/21 05:20 03/29/21 05:20 Labs: Laboratory Results - last 24 hr 03/28/21 03/28/21 03/28/21 11:27 16:53 16:53 WBC RBC Hgb Hct MCV MCH MCHC RDW Plt Count MPV Immature Gran % (Auto) Neut % (Auto) Lymph % (Auto) Sanders % (Auto) Eos % (Auto) Baso % (Auto) Lymph # (Auto) [place] # (Auto) Eos # (Auto) Baso # (Auto) Abs Immat Gran (auto) Absolute Neuts (auto) Absolute Nucleated RBC Nucleated RBC % (auto) Neutrophils % (Manual) Band Neutrophils % Lymphocytes % (Manual) Monocytes % (Manual) Eosinophils % (Manual) Metamyelocytes % Abs Neuts (Manual) Lymphocytes # (Manual) Monocytes # (Manual) Eosinophils # (Manual) Metamyelocytes # Toxic Vacuolation Platelet Estimate Plt Morphology Comment RBC Morphology [place] Cells Acanthocytes (Spur) VBG pH VBG pCO2 VBG pO2 VBG HCO3 VBG O2 Saturation VBG Base Excess Sodium Potassium Chloride Carbon Dioxide Anion Gap BUN Creatinine Estim Creat Clear Calc Estimated GFR POC Glucose 104 Random Glucose Lactic Acid Lactic Acid Fup @ 2Hr Lactic Acid Fup @ 4Hr Calcium Phosphorus Magnesium Total Bilirubin AST ALT Alkaline Phosphatase Total Protein Albumin Urine Color YELLOW Urine Appearance HAZY Urine pH 6.0 Ur Specific [place] 1.020 Urine Protein 2+ H Urine Glucose (UA) NEG Urine Ketones NEG Urine Blood TRACE Urine Nitrite POS H Ur Leukocyte Esterase NEG Urine RBC 0-2 Urine WBC 1-4 Ur Squamous Epith Cells TRACE Urine Bacteria 3+ Ur Random Sodium Urine Creatinine Urine Opiates Screen POSITIVE H Urine Fentanyl Screen Not Detected Ur Barbiturates Screen Not Detected Ur Phencyclidine Scrn Not Detected Ur Amphetamines Screen Not Detected U Benzodiazepines Scrn Not Detected Urine Cocaine Screen Not Detected U Marijuana (THC) Screen Not Detected 03/28/21 03/28/21 03/28/21 16:54 17:05 17:05 WBC 13.2 H RBC 4.37 Hgb 12.6 Hct 40.4 MCV 92.4 MCH 28.8 MCHC 31.2 RDW 16.7 H Plt Count 240 MPV 10.3 Immature Gran % (Auto) Cancelled Neut % (Auto) Cancelled Lymph % (Auto) Cancelled [place] % (Auto) Cancelled Eos % (Auto) Cancelled Baso % (Auto) Cancelled Lymph # (Auto) Cancelled [place] # (Auto) Cancelled Eos # (Auto) Cancelled Baso # (Auto) Cancelled Abs Immat Gran (auto) Cancelled Absolute Neuts (auto) Cancelled Absolute Nucleated RBC 0.000 Nucleated RBC % (auto) 0.0 Neutrophils % (Manual) 9 L Band Neutrophils % 74 H Lymphocytes % (Manual) 8 L Monocytes % (Manual) 2 Eosinophils % (Manual) Metamyelocytes % 7 Abs Neuts (Manual) 11.0 H Lymphocytes # (Manual) 1.1 Monocytes # (Manual) 0.3 Eosinophils # (Manual) Metamyelocytes # 0.9 Toxic Vacuolation Platelet Estimate NORMAL Plt Morphology Comment NORMAL RBC Morphology NOTED [place] Cells Acanthocytes (Spur) 2+ (3-5) VBG pH VBG pCO2 VBG pO2 VBG HCO3 VBG O2 Saturation VBG Base Excess Sodium 137 Potassium 4.8 Chloride 101 Carbon Dioxide 23 Anion Gap 18 BUN 73 H Creatinine 3.31 H Estim Creat Clear Calc 22.0 Estimated GFR 14 POC Glucose Random Glucose 98 Lactic Acid Lactic Acid Fup @ 2Hr Lactic Acid Fup @ 4Hr Calcium 7.6 L D Phosphorus Magnesium Total Bilirubin 1.3 H AST 33 H D ALT 14 Alkaline Phosphatase 106 Total Protein 5.1 L D Albumin 2.4 L D Urine Color Urine Appearance Urine pH Ur Specific [place] Urine Protein Urine Glucose (UA) Urine Ketones Urine Blood Urine Nitrite Ur Leukocyte Esterase Urine RBC Urine WBC Ur Squamous Epith Cells Urine Bacteria Ur Random Sodium 77.0 Urine Creatinine 105.73 Urine Opiates Screen Urine Fentanyl Screen Ur Barbiturates Screen Ur Phencyclidine Scrn Ur Amphetamines Screen U Benzodiazepines Scrn Urine Cocaine Screen U Marijuana (THC) Screen 03/28/21 03/28/21 03/28/21 18:53 21:08 21:08 WBC RBC Hgb Hct MCV MCH MCHC RDW Plt Count MPV Immature Gran % (Auto) Neut % (Auto) Lymph % (Auto) [place] % (Auto) Eos % (Auto) Baso % (Auto) Lymph # (Auto) [place] # (Auto) Eos # (Auto) Baso # (Auto) Abs Immat Gran (auto) Absolute Neuts (auto) Absolute Nucleated RBC Nucleated RBC % (auto) Neutrophils % (Manual) Band Neutrophils % Lymphocytes % (Manual) Monocytes % (Manual) Eosinophils % (Manual) Metamyelocytes % Abs Neuts (Manual) Lymphocytes # (Manual) Monocytes # (Manual) Eosinophils # (Manual) Metamyelocytes # Toxic Vacuolation Platelet Estimate Plt Morphology Comment RBC Morphology [place] Cells Acanthocytes (Spur) VBG pH VBG pCO2 VBG pO2 VBG HCO3 VBG O2 Saturation VBG Base Excess Sodium Potassium Chloride Carbon Dioxide Anion Gap BUN Creatinine Estim Creat Clear Calc Estimated GFR POC Glucose TNP Random Glucose Lactic Acid 4.6 H* Lactic Acid Fup @ 2Hr 3.3 H* Lactic Acid Fup @ 4Hr Calcium Phosphorus Magnesium Total Bilirubin AST ALT Alkaline Phosphatase Total Protein Albumin Urine Color Urine Appearance Urine pH Ur Specific [place] Urine Protein Urine Glucose (UA) Urine Ketones Urine Blood Urine Nitrite Ur Leukocyte Esterase Urine RBC Urine WBC Ur Squamous Epith Cells Urine Bacteria Ur Random Sodium Urine Creatinine Urine Opiates Screen Urine Fentanyl Screen Ur Barbiturates Screen Ur Phencyclidine Scrn Ur Amphetamines Screen U Benzodiazepines Scrn Urine Cocaine Screen U Marijuana (THC) Screen 03/28/21 03/29/21 03/29/21 23:18 05:20 05:20 WBC 11.0 H RBC 3.72 L Hgb 10.7 L Hct 33.7 L MCV 90.6 MCH 28.8 MCHC 31.8 RDW 16.7 H Plt Count 220 MPV 10.6 Immature Gran % (Auto) Cancelled Neut % (Auto) Cancelled Lymph % (Auto) Cancelled [place] % (Auto) Cancelled Eos % (Auto) Cancelled Baso % (Auto) Cancelled Lymph # (Auto) Cancelled [place] # (Auto) Cancelled Eos # (Auto) Cancelled Baso # (Auto) Cancelled Abs Immat Gran (auto) Cancelled Absolute Neuts (auto) Cancelled Absolute Nucleated RBC 0.000 Nucleated RBC % (auto) 0.0 Neutrophils % (Manual) 59 Band Neutrophils % 30 H Lymphocytes % (Manual) 3 L Monocytes % (Manual) 7 Eosinophils % (Manual) 1 Metamyelocytes % Abs Neuts (Manual) 9.8 H Lymphocytes # (Manual) 0.3 L Monocytes # (Manual) 0.8 Eosinophils # (Manual) 0.1 Metamyelocytes # Toxic Vacuolation PRESENT Platelet Estimate NORMAL Plt Morphology Comment NORMAL RBC Morphology NOTED [place] Cells 2+ (3-5) Acanthocytes (Spur) VBG pH VBG pCO2 VBG pO2 VBG HCO3 VBG O2 Saturation VBG Base Excess Sodium 136 Potassium 4.8 Chloride 101 Carbon Dioxide 22 Anion Gap 18 BUN 76 H Creatinine 3.26 H Estim Creat Clear Calc 22.4 Estimated GFR 14 POC Glucose Random Glucose 108 Lactic Acid Lactic Acid Fup @ 2Hr Lactic Acid Fup @ 4Hr 2.3 H* Calcium 7.9 L Phosphorus 6.5 H Magnesium 3.4 H Total Bilirubin AST ALT Alkaline Phosphatase Total Protein Albumin 2.8 L Urine Color Urine Appearance Urine pH Ur Specific [place] Urine Protein Urine Glucose (UA) Urine Ketones Urine Blood Urine Nitrite Ur Leukocyte Esterase Urine RBC Urine WBC Ur Squamous Epith Cells Urine Bacteria Ur Random Sodium Urine Creatinine Urine Opiates Screen Urine Fentanyl Screen Ur Barbiturates Screen Ur Phencyclidine Scrn Ur Amphetamines Screen U Benzodiazepines Scrn Urine Cocaine Screen U Marijuana (THC) Screen 03/29/21 05:28 WBC RBC Hgb Hct MCV MCH MCHC RDW Plt Count MPV Immature Gran % (Auto) Neut % (Auto) Lymph % (Auto) [place] % (Auto) Eos % (Auto) Baso % (Auto) Lymph # (Auto) [place] # (Auto) Eos # (Auto) Baso # (Auto) Abs Immat Gran (auto) Absolute Neuts (auto) Absolute Nucleated RBC Nucleated RBC % (auto) Neutrophils % (Manual) Band Neutrophils % Lymphocytes % (Manual) Monocytes % (Manual) Eosinophils % (Manual) Metamyelocytes % Abs Neuts (Manual) Lymphocytes # (Manual) Monocytes # (Manual) Eosinophils # (Manual) Metamyelocytes # Toxic Vacuolation Platelet Estimate Plt Morphology Comment RBC Morphology [place] Cells Acanthocytes (Spur) VBG pH 7.40 VBG pCO2 34 VBG pO2 53 VBG HCO3 22 VBG O2 Saturation 82.0 VBG Base Excess -1.9 Sodium Potassium Chloride Carbon Dioxide Anion Gap BUN Creatinine Estim Creat Clear Calc Estimated GFR POC Glucose Random Glucose Lactic Acid Lactic Acid Fup @ 2Hr Lactic Acid Fup @ 4Hr Calcium Phosphorus Magnesium Total Bilirubin AST ALT Alkaline Phosphatase Total Protein Albumin Urine Color Urine Appearance Urine pH Ur Specific [place] Urine Protein Urine Glucose (UA) Urine Ketones Urine Blood Urine Nitrite Ur Leukocyte Esterase Urine RBC Urine WBC Ur Squamous Epith Cells Urine Bacteria Ur Random Sodium Urine Creatinine Urine Opiates Screen Urine Fentanyl Screen Ur Barbiturates Screen Ur Phencyclidine Scrn Ur Amphetamines Screen U Benzodiazepines Scrn Urine Cocaine Screen U Marijuana (THC) Screen Microbiology Microbiology Results: Microbiology 03/28/21 18:53 Blood - Venous Blood Culture - Preliminary Prelim: GNR Gram Stain only 03/28/21 18:53 Blood - Venous Blood Culture - Preliminary Prelim: GNR Gram Stain only Quality Stroke Does the patient have a stroke diagnosis?: No VTE Prior VTE?: No VTE Risk Level:: Medical - moderate - high VTE Device Contraindication: Treatment Not Indicated VTE Drug Contraindication: N/A - Med Ordered Progress Note: A&P Assessment and plan (1) Acute renal failure: Status: Acute (2) UTI (urinary tract infection): Status: Acute Assessment and Plan: Assessment: 70-year-old lady who has multiple medical conditions including morbid obesity, hypertension, diabetes mellitus, interstitial lung disease, chronic lymphedema admits that his abdominal pain now with Gram-negative bacteremia and UTI Plan: Neuro: Toxic encephalopathy secondary to lingering morphine metabolites, resolved with Narcan drip. Cardiac: Hypotension without overt shock, resolved after Narcan drip. AFib. Pulmonary: Acute hypoxemia secondary to intravascular volume overload secondary to IV fluid administration for hypotension. Improving with diuresis. Renal: Acute renal failure, likely secondary to ATN. Improving. No longer oliguric. Nephrology service care appreciated. Continue to monitor renal indices and urine output. Endo: No acute issues. Underlying diabetes mellitus. GI: No acute issues. ID: Gram-negative bacteremia, likely secondary to UTI source. Continue with cefepime. Heme/Onc: No acute issues. Psych: No acute issues. Miscellaneous: No acute issues. Prophylaxis: Heparin Diet: Diabetic Critical care time spent: 45 minutes (3) Gram-negative bacteremia: Status: Acute (4) Obstructive sleep apnea: Status: Acute (5) Morbid obesity: Status: Acute (6) Interstitial lung disease: Status: Acute (7) Rheumatoid arthritis: Status: Acute
[2021-03-29] MEDS: Digoxin 0.5 MG/2 ML AMPUL 0.125 MG IVPUSH (23:57)
[2021-03-30] VITALS (29 sets, daily range): BP systolic 68–123; BP diastolic 11–83; PULSE 91–194; RESP 18–45; TEMP 36.3–37.2; O2SAT 88–98; BMI 50.3
[2021-03-30] MEDS: Bumetanide 1 MG/4 ML VIAL 0.5 MG IVPUSH (00:08)
[2021-03-30 06:27] LABS: Hematocrit 36.8 % (37-47); Hemoglobin 11.8 g/dl (12.0-16.0); Mean Corpuscular HGB Conc 32.1 g/dl (31.0-35.0); Mean Corpuscular Hemoglobin 28.6 pg (27.0-33.0); Mean Corpuscular Volume 89.3 fL (80-98); Mean Platelet Volume 10.5 fL (9.4-12.3); Platelet Count 209 X10*3/uL (160-400); Red Blood Count 4.12 X10*6/uL (4.20-5.50); Red Cell Distribution Width 16.7 % (11.0-16.0); White Blood Count 8.9 X10*3/uL (4.8-10.8)
[2021-03-30 06:28] LABS: Venous Blood Gas Refer to POC result
[2021-03-30 06:29] LABS: VBG Base Excess -0.7 mmol/L; VBG HCO3 23 mmol/L (22-26); VBG pCO2 38 mmHg; VBG pH 7.39 (7.32-7.43); VBG pO2 61 mmHg
[2021-03-30] MEDS: cefEPime HCl 1 GM in 0.9 % Sodium Chloride 50 ML IV ×2 (06:44→18:49)
[2021-03-30] MEDS: Heparin Sodium,Porcine 5,000 UNIT/ML VIAL 5000 UNIT SUBCUT ×3 (06:45→21:35)
[2021-03-30 07:09] LABS: Albumin Level 3.1 g/dL (3.5-5.0); Calcium 8.3 mg/dL (8.4-10.2); Estimated Glomerular Filt Rate 13; Glucose Random 86 mg/dL (60-115); Phosphorus 6.8 mg/dL (2.7-4.5)
[2021-03-30 07:31] LABS: Anion Gap 24 (12-20); Blood Urea Nitrogen 96 mg/dL (9-16); Carbon Dioxide 21 mmol/L (22-29); Chloride 100 mmol/L (96-108); Magnesium 3.6 mg/dL (1.6-2.6); Potassium 4.9 mmol/L (3.3-5.1); Sodium 140 mmol/L (135-145)
[2021-03-30 07:48] LABS: Band Neutrophils Percent 19 % (3-5); Lymphocytes Absolute Manual 0.2 X10*3/uL (0.6-4.8); Lymphocytes Percent Manual 2 % (20-40); Metamyelocytes Absolute 0.1 X10*3/uL; Metamyelocytes Percent 1 %; Monocytes Absolute Manual 0.4 X10*3/uL (0.0-1.2); Monocytes Percent Manual 4 % (2-11); Neutrophils Absolute Manual 8.3 X10*3/uL (2.2-7.9); Neutrophils Percent Manual 74 % (45-73)
[2021-03-30 07:49] LABS: RBC Morphology NOTED
[2021-03-30 07:50] LABS: Acanthocytes 2+ (3-5) /OIF
[2021-03-30 07:51] LABS: Dohle Bodies PRESENT; Platelet Estimate NORMAL (NORMAL); Platelet Morphology Comment NORMAL; Toxic Vacuolation PRESENT
--- NOTE | 2021-03-30 08:27 | P.CDIC_ITS ---
CDI Concurrent Query Documentation Clarification: PHYSICIAN'S DOCUMENTATION REQUEST Date of Query: 03/30/21 0827 Patient Name: Rosa Uribe Admit Date: 03/27/21 Dear Doctor, A review of the medical record indicates additional documentation may be needed. Please review below and update the documentation accordingly. Risk Factors/Clinical Indicators/Treatments Nephrology 03/29 - Assessment/plan: MAIRA oligoanuric MAIRA, multifact including ischemic ATN, IV dye load and GN Sepsis all major factors. Dx: Gram negative Sepsis WBC 37.3 HR 121 LA 4.6 RR 24 pulse ox 90 L Temp 96.6 ICU note 03/29 - Gram negative Bacteremia. UA positive for Nitrites started on broad spectrum antibiotics. Recognized standard criteria for this condition and other infectious definitions includes: Sepsis Systemic manifestations of infection, with 2 or more SIRS criteria which include: * Fever > 100.4?F or hypothermia < 96.8?F * Leukocytosis ? WBC > 12,000 or leukopenia, WBC < 4,000, or > 10% bands * Tachycardia- > 90 beats/minute * Tachypnea- RR > 20 breaths/minute or PaCO2 < 32mmHg Source: [employer] Manual 2013 Documentation should include the known or suspected organism, and the underlying infection, such as UTI or pneumonia Other or undetermined, ruled out etc. Based on the above information and the recognized standard for sepsis, could you please clarify in the Progress Notes if this diagnoses is still accurate and reflective of the patient's condition to ensure quality of the medical record. * Sepsis is/was present and is a clinical diagnosis based on (please include this additional support in the medical record) * After study (the condition) has been ruled out * Other (please specify) * Unable to determine Use of terms such as suspected, likely, concern for, or probable (associated with a specific diagnosis that is being evaluated, monitored, or treated as if it exists) are acceptable and can be coded in the inpatient setting, when documented at the time of discharge. Thank you, Alba Villalobos [facility], CDIS Extension: [phone] Please use your independent medical judgment in providing your response. THIS QUERY IS PART OF THE PERMANENT MEDICAL RECORD Provider Response: Other Other Diagnosis: patient under icu care at that time
[2021-03-30] MEDS: 0.9 % Sodium Chloride Flush 3 ML SYRINGE IVFLUSH ×3 (09:16→22:42)
[2021-03-30] MEDS: Hydrocortisone Sod Succ/PF 100 MG VIAL 50 MG IVPUSH (09:48)
[2021-03-30 09:55] LABS: VBG Base Excess -6.9 mmol/L; VBG HCO3 17 mmol/L (22-26); VBG pCO2 30 mmHg; VBG pH 7.35 (7.32-7.43); VBG pO2 86 mmHg
[2021-03-30 09:58] LABS: Venous Blood Gas Refer to POC result
--- NOTE | 2021-03-30 09:58 | PC.NURSE ---
pt was transferred up from icu during the night. at start of shift aid reported bp of 85/53. p 99. 94% 4l. attempted to obtain manual pb both arms and was unable. Dr Ding was notified. 0900 Dr Ding in to see pt. pt now had a resp rate of 40. labored . extremities becoming mottled nail beds cyanotic. Resp therapist at bedside attempted abg's (unable to obtain due to inability to hear audible pulses or palpate. VBG had to be done by TLC instead. Dr Gabriel in to eval pt. he also was unable to obtain bp. (attempted to troubleshoot BP machine. used 2 different machines and 2 different size cuffs jackie with same response *error) Hall Monitor and coordinator also at bedside. did not want to accept patient as ICU status at this time. Collaboratively between staff in room, it was decided to transfer patient to ICU as IMC overflow due to patient nurse ratio on floor being 1:6. And monitoring of this patient will be higher need. Report given to Sandra in ICU. Pt transferred by supervisor crack off and clinical coordinator.
[2021-03-30 10:44] LABS: Lactic Acid 2.4 mmol/L (0.5-2.0)
--- NOTE | 2021-03-30 10:44 | P.PNNP_ITS ---
Subjective Subjective Date of Service: 03/30/21 Principal diagnosis: MAIRA Interval history: seen and examined, events noted CAse d/w Hosp doc and ICU Xfer out of ICU and now this am incr RR,low BPS and decr UOP and mottled on exam Physical Exam Vital Signs: Vital Signs: Last Vital Signs Temp 97.8 F 03/30/21 08:00 Pulse 98 03/30/21 08:00 Resp 18 03/30/21 08:00 BP 85/83 L 03/30/21 08:00 Pulse Ox 94 03/30/21 08:00 Body Mass Index 113.2 Const: General: no acute distress, ill appearing and lethargic Orientation/consciousness: lethargic Limitations: no limitations HENMT: Head: Yes normal to inspection Eyes: General: appearance normal, both eyes and all related structures Pupils: Equal, round and reactive pupils present Neck: Neck: Yes normal visual inspection and Yes full ROM Resp: Effort & Inspection: normal respiratory effort and able to speak in complete sentences Auscultation: clear to auscultation bilaterally Cardio: Rate: regular rate Rhythm: regular rhythm Heart sounds: normal S1 and S2 GI: Other: Patient demonstrates tenderness on minimal palpation of the abdomen diffusely, no rebound or guarding elicited Inspection: Yes normal to inspection Palpation (GI): Soft to palpation and Tenderness to palpation present (GI) in the epigastrum, in the LLQ and in the RLQ Auscultation: normal bowel sounds Skin: General skin exam: no rashes or lesions noted Neuro: Cranial nerves: Yes Equal, round and reactive pupils present Cognition (Neuro): normal cognition Extrem: General: Yes normal to inspection, Yes no pedal edema, No no calf tenderness (bilateral calf tenderness) and Yes edema (1+ pitting) Objective Data Labs CBC & Chem 7: 03/30/21 06:18 03/30/21 06:18 Labs: Laboratory Results - last 24 hr 03/30/21 03/30/21 03/30/21 06:18 06:18 06:21 WBC 8.9 RBC 4.12 L Hgb 11.8 L Hct 36.8 L MCV 89.3 MCH 28.6 MCHC 32.1 RDW 16.7 H Plt Count 209 MPV 10.5 Immature Gran % (Auto) Cancelled Neut % (Auto) Cancelled Lymph % (Auto) Cancelled [place] % (Auto) Cancelled Eos % (Auto) Cancelled Baso % (Auto) Cancelled Lymph # (Auto) Cancelled [place] # (Auto) Cancelled Eos # (Auto) Cancelled Baso # (Auto) Cancelled Abs Immat Gran (auto) Cancelled Absolute Neuts (auto) Cancelled Absolute Nucleated RBC 0.000 Nucleated RBC % (auto) 0.0 Neutrophils % (Manual) 74 H Band Neutrophils % 19 H Lymphocytes % (Manual) 2 L Monocytes % (Manual) 4 Metamyelocytes % 1 Abs Neuts (Manual) 8.3 H Lymphocytes # (Manual) 0.2 L Monocytes # (Manual) 0.4 Metamyelocytes # 0.1 Toxic Vacuolation PRESENT Dohle Bodies PRESENT Platelet Estimate NORMAL Plt Morphology Comment NORMAL RBC Morphology NOTED Acanthocytes (Spur) 2+ (3-5) VBG pH 7.39 VBG pCO2 38 VBG pO2 61 VBG HCO3 23 VBG O2 Saturation 85.0 VBG Base Excess -0.7 Sodium 140 Potassium 4.9 Chloride 100 Carbon Dioxide 21 L Anion Gap 24 H BUN 96 H* D Creatinine 3.54 H Estim Creat Clear Calc 36.0 Estimated GFR 13 Random Glucose 86 Calcium 8.3 L Phosphorus 6.8 H Magnesium 3.6 H* Albumin 3.1 L 03/30/21 09:50 WBC RBC Hgb Hct MCV MCH MCHC RDW Plt Count MPV Immature Gran % (Auto) Neut % (Auto) Lymph % (Auto) [place] % (Auto) Eos % (Auto) Baso % (Auto) Lymph # (Auto) [place] # (Auto) Eos # (Auto) Baso # (Auto) Abs Immat Gran (auto) Absolute Neuts (auto) Absolute Nucleated RBC Nucleated RBC % (auto) Neutrophils % (Manual) Band Neutrophils % Lymphocytes % (Manual) Monocytes % (Manual) Metamyelocytes % Abs Neuts (Manual) Lymphocytes # (Manual) Monocytes # (Manual) Metamyelocytes # Toxic Vacuolation Dohle Bodies Platelet Estimate Plt Morphology Comment RBC Morphology Acanthocytes (Spur) VBG pH 7.35 VBG pCO2 30 VBG pO2 86 VBG HCO3 17 L VBG O2 Saturation 94.0 VBG Base Excess -6.9 Sodium Potassium Chloride Carbon Dioxide Anion Gap BUN Creatinine Estim Creat Clear Calc Estimated GFR Random Glucose Calcium Phosphorus Magnesium Albumin Microbiology Microbiology Results: Microbiology 03/28/21 18:53 Blood - Venous Blood Culture - Preliminary Gram negative zoie 03/28/21 18:53 Blood - Venous Blood Culture - Preliminary Gram negative zoie 03/28/21 19:54 Urine Catheterized - Georges Catheter Urine Culture - Preli minary No growth to date. Procedures Date of Service Date of Service: 03/30/21 Assessment & Plan Assessment and plan (1) Acute renal failure: Start date: 03/30/21 Start time: 10:53 Status: Acute Assessment and Plan: MAIRA: multifact including ischemic ATN, IV dye load and GN Sepsis all major factors Yesterday UOP opicked up and xfer to floor but nowagain low BP decrUOP and AMS GN Sepsis Hypervol AMS: worse again; ques uremia playing a role but unclear to what extent REC: optimize BP and renal perfusion and re-eval later today for possible need for HD later today d/w ICU Dr Gabriel Time Spent With Patient Time: Total time spent is greater than 50% in coordination of care (as documented) at patient's floor/unit and/or counseling patient: Progress Note: Quality Stroke Does the patient have a stroke diagnosis?: No
[2021-03-30] MEDS: Albumin Human 25 % 100 ML IV ×3 (11:16→21:35)
[2021-03-30 11:28] LABS: Alanine Aminotransferase 33 U/L (0-31); Alkaline Phosphatase 99 U/L (39-117); Aspartate Amino Transferase 161 U/L (5-31)
[2021-03-30 11:37] LABS: Ammonia 37 umol/L (13-55)
[2021-03-30 11:40] LABS: Reflex Lactate? Lactic Acid Added
[2021-03-30 12:07] LABS: HBc Num1 0.11 S/CO (0.00-0.79); Hepatitis B Core Antibody Nonreactive (Nonreactive); Hepatitis B Surface Antigen Negative (Negative)
[2021-03-30 12:20] LABS: ~Lactic Acid-LAB USE ONLY 3.3 mmol/L (0.5-2.0)
[2021-03-30] MEDS: bisacodyL 10 MG SUPP.RECT PR (12:24)
[2021-03-30 12:38] LABS: HBS Num1 0.32 mIU/mL (0-7.99); ~HepC Num1 0.06 S/CO (0.00-0.79); ~Hepatitis B Surface Antibody NONREACTIVE (Nonreactive); ~Hepatitis C Antibody Nonreactive (Nonreactive)
[2021-03-30] MEDS: Amiodarone HCL 900 MG in 0.9 % Sodium Chloride 500 ML 34.53 MG IVCONT (13:43)
[2021-03-30] MEDS: iohexoL 350 MG/ML 100 ML INFUS..BTL IV (13:43)
[2021-03-30 13:51] LABS: Reflex Lactate? 2 Y
[2021-03-30 14:23] LABS: Anion Gap 25 (12-20); Blood Urea Nitrogen 100 mg/dL (9-16); Calcium 8.4 mg/dL (8.4-10.2); Carbon Dioxide 19 mmol/L (22-29); Chloride 99 mmol/L (96-108); Creatinine Clr Calc Pharmacy 17.7; Estimated Glomerular Filt Rate 11; Glucose Random 82 mg/dL (60-115); Potassium 4.7 mmol/L (3.3-5.1); Sodium 138 mmol/L (135-145)
--- NOTE | 2021-03-30 14:34 | PC.NURSE ---
Addendum entered by Sandra Vee RN 03/30/21 19:27: VSS on levophed gtt. MAP goal >65 Pt lethargic, occasionaly moan/ pull away when doing care. LS diminished lower lobes, on NRB maintaining o2 sat >90%. Minimal u/o, MD aware. Pt given suppository with no effect.Pt repoed as tolerated, SO updated bedside on plan Addendum entered by Sandra Vee RN 03/30/21 17:58: pt converted to sinus tach at 1427 Original Note: Pt transfered to ICU at about 1015. Pt lethargic, occasionally moving extremities. Bp and O2 stable. Pt became hypoxic and hypotensive. Md at bedside and suctioned about 1L of dark liquid from lungs/stomach. O2 sat became better, albumin given, still hypotensive. Levophed gtt started and titrated per EMAR. MD put in NG tube; hooked up to intermittent suction. at 1257, pt converted to afib RVR, HR up to 194. Md at bedside, order for Amioderone gtt, started per emar, pt Hr down to 140s, MD ok to bring to Ct scan.
[2021-03-30 14:35] LABS: ~Lactic Acid-LAB USE ONLY 3.1 mmol/L (0.5-2.0)
--- NOTE | 2021-03-30 15:04 | P.PNIM_ITS ---
Subjective Subjective Date of Service: 03/30/21 Interval History: Patient transferred to intermediate care unit overnight, this a.m. patient noted to be lethargic difficult to arouse unable to obtain history. Review of Systems Unable to obtain review of systems since patient lethargic somnolent, temporarily open eyes and diff back to sleep Physical Exam Vital Signs: Vital Signs: Last Vital Signs Temp 97.7 F 03/30/21 12:42 Pulse 133 H 03/30/21 14:00 Resp 45 H 03/30/21 14:00 BP 93/54 L 03/30/21 14:00 Pulse Ox 88 L 03/30/21 14:00 Body Mass Index 50.3 General patient lethargic tachypneic, in respiratory distress , respiratory rate 40 per minute Neck no JVD. CVS regular rate rhythm Respiratory lungs bilateral basilar crackles, respiratory distress using abdominal muscles Gastrointestinal abdomen obese soft, bowel sounds audible, no rigidity. Extremities no edema. Neuro un able to obtain since patient lethargic , moving all 4 extremities Skin cyanotic fingers, bilateral lower extremities cyanotic Objective Data Active Medications Acetaminophen (Acetaminophen 325 Mg Tablet) 650 mg PO Q6H PRN PRN Reason: Pain, Mild (Pain Scale 1-3) Last Admin: 03/29/21 08:05 Dose: 650 mg Documented by: BHAVYA Clotrimazole (Clotrimazole 1 % Cream 15 Gm Tube) 1 appl TOPICAL BID [facility] [place]; Protocol Last Admin: 03/30/21 10:30 Dose: Not Given Documented by: JAYLEN Non-Admin Reason: on IMC Heparin Sodium (Porcine) (Heparin Sodium,Porcine 5,000 Unit/Ml Vial) 5,000 unit SUBCUT Q8H [facility] [place] Last Admin: 03/30/21 06:45 Dose: 5,000 unit Documented by: ENRICO Cefepime HCl 1 gm/ Sodium (Chloride) 50 mls @ 100 mls/hr IV Q12H [facility] [place] Last Infusion: 03/30/21 07:51 Dose: 100 mls/hr Documented by: DARIANA Albumin Human (Kedbumin 25 %) 100 mls @ 100 mls/hr IV Q6H [facility] [place] Stop: 03/31/21 05:14 Last Infusion: 03/30/21 12:23 Dose: 0 mls/hr Documented by: JAYLEN Norepinephrine Bitartrate (Levophed) 8 mg in 250 mls @ 0 mls/hr IVCONT .Q0M [facility] [place]; Protocol Last Titration: 03/30/21 14:49 Dose: 0.16 mcg/kg/min, 89.76 mls/hr Documented by: JAYLEN Amiodarone HCl 900 mg/ Sodium (Chloride) 518 mls @ 34.533 mls/hr IVCONT .Q15H1M [facility] [place]; Protocol Last Admin: 03/30/21 13:43 Dose: 1 mg/min, 34.53 mls/hr Documented by: JAYLEN Ondansetron HCl (Ondansetron Hcl 4 Mg/2 Ml Vial) 4 mg IVPUSH Q8H PRN PRN Reason: Nausea and Vomiting Last Admin: 03/29/21 00:36 Dose: 4 mg Documented by: SUKH Polyethylene Glycol (Polyethylene Glycol 3350 17 Gm Powd.Pack) 17 gm PO DAILY [facility] [place] Last Admin: 03/30/21 09:14 Dose: Not Given Documented by: DARIANA Non-Admin Reason: pt to lethargic Sodium Chloride (0.9 % Sodium Chloride Flush 3 Ml Syringe) 3 ml IVFLUSH QSHIFT [facility] [place] Last Admin: 03/30/21 09:16 Dose: 3 ml Documented by: DARIANA Labs CBC & Chem 7: 03/30/21 06:18 03/30/21 13:48 Labs: Laboratory Results - last 24 hr 03/30/21 03/30/21 03/30/21 06:18 06:18 06:21 MCV 89.3 MCH 28.6 MCHC 32.1 RDW 16.7 H Plt Count 209 MPV 10.5 Immature Gran % (Auto) Cancelled Neut % (Auto) Cancelled Lymph % (Auto) Cancelled Henderson % (Auto) Cancelled Eos % (Auto) Cancelled Baso % (Auto) Cancelled Lymph # (Auto) Cancelled Henderson # (Auto) Cancelled Eos # (Auto) Cancelled Baso # (Auto) Cancelled Abs Immat Gran (auto) Cancelled Absolute Neuts (auto) Cancelled Absolute Nucleated RBC 0.000 Nucleated RBC % (auto) 0.0 Neutrophils % (Manual) 74 H Band Neutrophils % 19 H Lymphocytes % (Manual) 2 L Monocytes % (Manual) 4 Metamyelocytes % 1 Abs Neuts (Manual) 8.3 H Lymphocytes # (Manual) 0.2 L Monocytes # (Manual) 0.4 Metamyelocytes # 0.1 Toxic Vacuolation PRESENT Dohle Bodies PRESENT Platelet Estimate NORMAL Plt Morphology Comment NORMAL RBC Morphology NOTED Acanthocytes (Spur) 2+ (3-5) VBG pH 7.39 VBG pCO2 38 VBG pO2 61 VBG HCO3 23 VBG O2 Saturation 85.0 VBG Base Excess -0.7 Anion Gap 24 H Estim Creat Clear Calc 36.0 Estimated GFR 13 Random Glucose 86 Lactic Acid Lactic Acid Fup @ 2Hr Lactic Acid Fup @ 4Hr Calcium 8.3 L Phosphorus 6.8 H Magnesium 3.6 H* Total Bilirubin 1.0 AST 161 H ALT 33 H Alkaline Phosphatase 99 Ammonia Total Creatine Kinase 4637 H Albumin 3.1 L Hep Bs Antigen Hep Bs Antibody Hep B Core Total Ab Hepatitis C Ab (EIA) 03/30/21 03/30/21 03/30/21 09:38 09:50 11:21 MCV MCH MCHC RDW Plt Count MPV Immature Gran % (Auto) Neut % (Auto) Lymph % (Auto) Henderson % (Auto) Eos % (Auto) Baso % (Auto) Lymph # (Auto) Henderson # (Auto) Eos # (Auto) Baso # (Auto) Abs Immat Gran (auto) Absolute Neuts (auto) Absolute Nucleated RBC Nucleated RBC % (auto) Neutrophils % (Manual) Band Neutrophils % Lymphocytes % (Manual) Monocytes % (Manual) Metamyelocytes % Abs Neuts (Manual) Lymphocytes # (Manual) Monocytes # (Manual) Metamyelocytes # Toxic Vacuolation Dohle Bodies Platelet Estimate Plt Morphology Comment RBC Morphology Acanthocytes (Spur) VBG pH 7.35 VBG pCO2 30 VBG pO2 86 VBG HCO3 17 L VBG O2 Saturation 94.0 VBG Base Excess -6.9 Anion Gap Estim Creat Clear Calc Estimated GFR Random Glucose Lactic Acid 2.4 H* Lactic Acid Fup @ 2Hr Lactic Acid Fup @ 4Hr Calcium Phosphorus Magnesium Total Bilirubin AST ALT Alkaline Phosphatase Ammonia Total Creatine Kinase Albumin Hep Bs Antigen Negative Hep Bs Antibody NONREACTIVE Hep B Core Total Ab Nonreactive Hepatitis C Ab (EIA) Nonreactive 03/30/21 03/30/21 03/30/21 11:21 11:48 13:48 MCV MCH MCHC RDW Plt Count MPV Immature Gran % (Auto) Neut % (Auto) Lymph % (Auto) Henderson % (Auto) Eos % (Auto) Baso % (Auto) Lymph # (Auto) Henderson # (Auto) Eos # (Auto) Baso # (Auto) Abs Immat Gran (auto) Absolute Neuts (auto) Absolute Nucleated RBC Nucleated RBC % (auto) Neutrophils % (Manual) Band Neutrophils % Lymphocytes % (Manual) Monocytes % (Manual) Metamyelocytes % Abs Neuts (Manual) Lymphocytes # (Manual) Monocytes # (Manual) Metamyelocytes # Toxic Vacuolation Dohle Bodies Platelet Estimate Plt Morphology Comment RBC Morphology Acanthocytes (Spur) VBG pH VBG pCO2 VBG pO2 VBG HCO3 VBG O2 Saturation VBG Base Excess Anion Gap 25 H Estim Creat Clear Calc 17.7 Estimated GFR 11 Random Glucose 82 Lactic Acid Lactic Acid Fup @ 2Hr 3.3 H* Lactic Acid Fup @ 4Hr Calcium 8.4 Phosphorus Magnesium Total Bilirubin AST ALT Alkaline Phosphatase Ammonia 37 Total Creatine Kinase Albumin Hep Bs Antigen Hep Bs Antibody Hep B Core Total Ab Hepatitis C Ab (EIA) 03/30/21 14:12 MCV MCH MCHC RDW Plt Count MPV Immature Gran % (Auto) Neut % (Auto) Lymph % (Auto) Henderson % (Auto) Eos % (Auto) Baso % (Auto) Lymph # (Auto) Henderson # (Auto) Eos # (Auto) Baso # (Auto) Abs Immat Gran (auto) Absolute Neuts (auto) Absolute Nucleated RBC Nucleated RBC % (auto) Neutrophils % (Manual) Band Neutrophils % Lymphocytes % (Manual) Monocytes % (Manual) Metamyelocytes % Abs Neuts (Manual) Lymphocytes # (Manual) Monocytes # (Manual) Metamyelocytes # Toxic Vacuolation Dohle Bodies Platelet Estimate Plt Morphology Comment RBC Morphology Acanthocytes (Spur) VBG pH VBG pCO2 VBG pO2 VBG HCO3 VBG O2 Saturation VBG Base Excess Anion Gap Estim Creat Clear Calc Estimated GFR Random Glucose Lactic Acid Lactic Acid Fup @ 2Hr Lactic Acid Fup @ 4Hr 3.1 H* Calcium Phosphorus Magnesium Total Bilirubin AST ALT Alkaline Phosphatase Ammonia Total Creatine Kinase Albumin Hep Bs Antigen Hep Bs Antibody Hep B Core Total Ab Hepatitis C Ab (EIA) Microbiology Microbiology Results: Microbiology 03/28/21 19:54 Urine Culture - Final Urine Catheterized - Georges Catheter 03/28/21 18:53 Blood Culture - Preliminary Blood - Venous Gram negative zoie 03/28/21 18:53 Blood Culture - Preliminary Blood - Venous Gram negative zoie Assessment and Plan (1) Hypotension: Status: Acute (2) Acute renal failure: Status: Acute (3) Gram-negative bacteremia: Status: Acute (4) Hypertension: Status: Acute (5) Morbid obesity: Status: Acute (6) Interstitial lung disease: Status: Acute (7) Rheumatoid arthritis: Status: Acute (8) Encephalopathy acute: Status: Acute Assessment and Plan: 70-year-old female with an extensive past medical history who presents to the hospital with complaints of diffuse abdominal pain, admitted for intractable abdominal pain/constipation # gram-negative bacteremia/acute respiratory failure/ hypotension/acute renal failure/hypermagnesemia Patient transferred out from intensive care unit overnight after being managed for acute renal failure, gram-negative bacteremia, lethargy ,sedation du e to multiple dosages of morphine patient treated in ICU with IV Narcan drip, IV cefepime required diuresis for fluid overload patient noted to be lethargic unarousable this a.m., unable to obtain blood pressure patient was tachypneic with respiratory rate in 40s on 4 L of oxygen finger oximetry was low 90s patient placed on BiPAP with concern for congestive heart failure, stress dose steroids ordered, ABGs ordered, patient condition did not improve room she remains tachypneic hypotensive and noted to be cyanotic. Multiple attempts were made to obtain blood pressure by different machines and by Doppler but unable to obtain BP Due to worsening clinical condition drying room operator was consulted, Dr. Gabriel also tried obtaining blood pressure, but since blood pressure was not obtainable and patient condition was worsening She is being transferred to intensive care unit Will continue IV cefepime/ stress dose steroids Patient urine culture is negative, blood cultures x2 positive for Gram- negative rods All imaging studies including CT abdomen pelvis, CT abdomen, chest x-ray reviewed and no infection was found on admission. In regard to acute renal failure case discussed with Dr. Glaser to address need for urgent hemodialysis # Acute encephalopathy likely toxic metabolic with Gram-negative bacteremia, hypermagnesemia and acute renal failure patient is status post Narcan drip in the ICU remain lethargic oxygenation borderline ?? DVT prophylaxis heparin subQ Quality Stroke Does the patient have a stroke diagnosis?: No VTE Prior VTE?: No VTE Risk Level:: Medical - moderate - high VTE Device Contraindication: Treatment Not Indicated VTE Drug Contraindication: N/A - Med Ordered
--- NOTE | 2021-03-30 15:17 | PM.CCPN ---
Subjective Subjective Date of Service: 03/30/21 Interval History: 70-year-old lady with underlying morbid obesity, interstitial lung disease, hypertension, obstructive sleep apnea, chronic lymphedema admitted on 03/27/2021 with diffuse abdominal pain and hypertensive urgency with essentially normal CT angiogram of chest/abdomen/pelvis.? The patient has been treated with multiple antihypertensive agents and parenteral opioids.? On 03/28/2021 patient with acute kidney failure with oliguria, lethargy, and hypotension.? Arterial blood gas with normal oxygenation and no evidence of CO2 retention. Patient has been given 3 liters of IV fluids and has required several doses of Narcan with improvement in her mentation and blood pressure, however her hypotension and lethargy continue to recur, thus she was transferred to intensive care unit and started on Narcan drip with improvement in her blood pressure, urine output, and mental status.? Patient was covered with empiric cefepime. Her blood cultures grew Gram-negative rods. Patient was titrated off Narcan drip and transferred back to the general medical [facility] on 03/29/2021 in the evening. Overnight patient developed worse lethargy with progressive uremia and hypoxemia (likely from aspiration of gastric content while on CPAP) and redevelopment of anuria. She has been transferred back to the intensive care unit on 03/30/2021. Nasogastric tube was placed and drained 1.3 L of feculent fluid. Patient required initiation of vasopressor support. Her repeat CT abdomen/pelvis with contrast showed the liver mass, but no obstruction, and possible concern for ischemic bowel. General surgery was consulted. Critical Care Time (minutes): 90 Physical Exam Vital Signs: Vital Signs: Last Vital Signs Temp 97.7 F 03/30/21 12:42 Pulse 133 H 03/30/21 14:00 Resp 45 H 03/30/21 14:00 BP 93/54 L 03/30/21 14:00 Pulse Ox 88 L 03/30/21 14:00 Body Mass Index 50.3 Const: General: lethargic Nutritional Appearance: obese Orientation/consciousness: lethargic Eyes: Sclerae: sclerae normal EOM: EOMs intact bilaterally Neck: Neck: Yes no lymphadenopathy, Yes trachea midline and Yes supple Resp: Effort & Inspection: normal respiratory effort and tachypneic Auscultation: crackles (Bibasilar) Cardio: Rate: tachycardic Rhythm: abnormal rhythm irregularly irregular Heart sounds: no gallops, no murmurs and no rubs GI: Palpation (GI): Soft to palpation and Other GI palpation findings present ( Nontender) Auscultation: Hypoactive bowel sounds present Extrem: General: No clubbing, No cyanosis and Yes edema (1+ bilateral) Objective Data Labs CBC & Chem 7: 03/30/21 06:18 03/30/21 13:48 Labs: Laboratory Results - last 24 hr 03/30/21 03/30/21 03/30/21 06:18 06:18 06:21 WBC 8.9 RBC 4.12 L Hgb 11.8 L Hct 36.8 L MCV 89.3 MCH 28.6 MCHC 32.1 RDW 16.7 H Plt Count 209 MPV 10.5 Immature Gran % (Auto) Cancelled Neut % (Auto) Cancelled Lymph % (Auto) Cancelled [place] % (Auto) Cancelled Eos % (Auto) Cancelled Baso % (Auto) Cancelled Lymph # (Auto) Cancelled [place] # (Auto) Cancelled Eos # (Auto) Cancelled Baso # (Auto) Cancelled Abs Immat Gran (auto) Cancelled Absolute Neuts (auto) Cancelled Absolute Nucleated RBC 0.000 Nucleated RBC % (auto) 0.0 Neutrophils % (Manual) 74 H Band Neutrophils % 19 H Lymphocytes % (Manual) 2 L Monocytes % (Manual) 4 Metamyelocytes % 1 Abs Neuts (Manual) 8.3 H Lymphocytes # (Manual) 0.2 L Monocytes # (Manual) 0.4 Metamyelocytes # 0.1 Toxic Vacuolation PRESENT Dohle Bodies PRESENT Platelet Estimate NORMAL Plt Morphology Comment NORMAL RBC Morphology NOTED Acanthocytes (Spur) 2+ (3-5) VBG pH 7.39 VBG pCO2 38 VBG pO2 61 VBG HCO3 23 VBG O2 Saturation 85.0 VBG Base Excess -0.7 Sodium 140 Potassium 4.9 Chloride 100 Carbon Dioxide 21 L Anion Gap 24 H BUN 96 H* D Creatinine 3.54 H Estim Creat Clear Calc 36.0 Estimated GFR 13 Random Glucose 86 Lactic Acid Lactic Acid Fup @ 2Hr Lactic Acid Fup @ 4Hr Calcium 8.3 L Phosphorus 6.8 H Magnesium 3.6 H* Total Bilirubin 1.0 AST 161 H ALT 33 H Alkaline Phosphatase 99 Ammonia Total Creatine Kinase 4637 H Albumin 3.1 L Hep Bs Antigen Hep Bs Antibody Hep B Core Total Ab Hepatitis C Ab (EIA) 03/30/21 03/30/21 03/30/21 09:38 09:50 11:21 WBC RBC Hgb Hct MCV MCH MCHC RDW Plt Count MPV Immature Gran % (Auto) Neut % (Auto) Lymph % (Auto) [place] % (Auto) Eos % (Auto) Baso % (Auto) Lymph # (Auto) [place] # (Auto) Eos # (Auto) Baso # (Auto) Abs Immat Gran (auto) Absolute Neuts (auto) Absolute Nucleated RBC Nucleated RBC % (auto) Neutrophils % (Manual) Band Neutrophils % Lymphocytes % (Manual) Monocytes % (Manual) Metamyelocytes % Abs Neuts (Manual) Lymphocytes # (Manual) Monocytes # (Manual) Metamyelocytes # Toxic Vacuolation Dohle Bodies Platelet Estimate Plt Morphology Comment RBC Morphology Acanthocytes (Spur) VBG pH 7.35 VBG pCO2 30 VBG pO2 86 VBG HCO3 17 L VBG O2 Saturation 94.0 VBG Base Excess -6.9 Sodium Potassium Chloride Carbon Dioxide Anion Gap BUN Creatinine Estim Creat Clear Calc Estimated GFR Random Glucose Lactic Acid 2.4 H* Lactic Acid Fup @ 2Hr Lactic Acid Fup @ 4Hr Calcium Phosphorus Magnesium Total Bilirubin AST ALT Alkaline Phosphatase Ammonia Total Creatine Kinase Albumin Hep Bs Antigen Negative Hep Bs Antibody NONREACTIVE Hep B Core Total Ab Nonreactive Hepatitis C Ab (EIA) Nonreactive 03/30/21 03/30/21 03/30/21 11:21 11:48 13:48 WBC RBC Hgb Hct MCV MCH MCHC RDW Plt Count MPV Immature Gran % (Auto) Neut % (Auto) Lymph % (Auto) [place] % (Auto) Eos % (Auto) Baso % (Auto) Lymph # (Auto) [place] # (Auto) Eos # (Auto) Baso # (Auto) Abs Immat Gran (auto) Absolute Neuts (auto) Absolute Nucleated RBC Nucleated RBC % (auto) Neutrophils % (Manual) Band Neutrophils % Lymphocytes % (Manual) Monocytes % (Manual) Metamyelocytes % Abs Neuts (Manual) Lymphocytes # (Manual) Monocytes # (Manual) Metamyelocytes # Toxic Vacuolation Dohle Bodies Platelet Estimate Plt Morphology Comment RBC Morphology Acanthocytes (Spur) VBG pH VBG pCO2 VBG pO2 VBG HCO3 VBG O2 Saturation VBG Base Excess Sodium 138 Potassium 4.7 Chloride 99 Carbon Dioxide 19 L Anion Gap 25 H BUN 100 H* Creatinine 4.07 H* Estim Creat Clear Calc 17.7 Estimated GFR 11 Random Glucose 82 Lactic Acid Lactic Acid Fup @ 2Hr 3.3 H* Lactic Acid Fup @ 4Hr Calcium 8.4 Phosphorus Magnesium Total Bilirubin AST ALT Alkaline Phosphatase Ammonia 37 Total Creatine Kinase Albumin Hep Bs Antigen Hep Bs Antibody Hep B Core Total Ab Hepatitis C Ab (EIA) 03/30/21 14:12 WBC RBC Hgb Hct MCV MCH MCHC RDW Plt Count MPV Immature Gran % (Auto) Neut % (Auto) Lymph % (Auto) [place] % (Auto) Eos % (Auto) Baso % (Auto) Lymph # (Auto) [place] # (Auto) Eos # (Auto) Baso # (Auto) Abs Immat Gran (auto) Absolute Neuts (auto) Absolute Nucleated RBC Nucleated RBC % (auto) Neutrophils % (Manual) Band Neutrophils % Lymphocytes % (Manual) Monocytes % (Manual) Metamyelocytes % Abs Neuts (Manual) Lymphocytes # (Manual) Monocytes # (Manual) Metamyelocytes # Toxic Vacuolation Dohle Bodies Platelet Estimate Plt Morphology Comment RBC Morphology Acanthocytes (Spur) VBG pH VBG pCO2 VBG pO2 VBG HCO3 VBG O2 Saturation VBG Base Excess Sodium Potassium Chloride Carbon Dioxide Anion Gap BUN Creatinine Estim Creat Clear Calc Estimated GFR Random Glucose Lactic Acid Lactic Acid Fup @ 2Hr Lactic Acid Fup @ 4Hr 3.1 H* Calcium Phosphorus Magnesium Total Bilirubin AST ALT Alkaline Phosphatase Ammonia Total Creatine Kinase Albumin Hep Bs Antigen Hep Bs Antibody Hep B Core Total Ab Hepatitis C Ab (EIA) Microbiology Microbiology Results: Microbiology 03/28/21 19:54 Urine Catheterized - Georges Catheter Urine Culture - Final 03/28/21 18:53 Blood - Venous Blood Culture - Preliminary Gram negative zoie 03/28/21 18:53 Blood - Venous Blood Culture - Preliminary Gram negative zoie Quality Stroke Does the patient have a stroke diagnosis?: No VTE Prior VTE?: No VTE Risk Level:: Medical - moderate - high VTE Device Contraindication: Treatment Not Indicated VTE Drug Contraindication: N/A - Med Ordered Progress Note: A&P Assessment and plan (1) Pulmonary aspiration: Status: Acute (2) Encephalopathy acute: Status: Acute (3) Gram-negative bacteremia: Status: Acute (4) Hypotension: Status: Acute (5) Acute renal failure: Status: Acute (6) UTI (urinary tract infection): Status: Acute (7) Ileus: Status: Acute (8) Morbid obesity: Status: Acute (9) Interstitial lung disease: Status: Acute (10) Rheumatoid arthritis: Status: Acute Assessment and Plan: Assessment:? 70-year-old lady who has multiple medical conditions including morbid obesity, hypertension, diabetes mellitus, interstitial lung disease, chronic lymphedema admitted with abdominal pain now with Gram-negative bacteremia, UTI, acute kidney failure, ileus, acute encephalopathy Plan: Neuro:? Metabolic encephalopathy, likely secondary to uremia, may require hemodialysis. Cardiac:? Shock likely from pulmonary aspiration of gastric content. Continued to titrate off pressors as tolerated. Pulmonary:? Acute hypoxemia secondary to pulmonary aspiration of gastric content. Continue to titrate off supplemental oxygen as tolerated. Renal:? Acute renal failure, likely secondary to ATN with significant uremia. Oliguric.? Nephrology service care appreciated.? Continue to monitor renal indices and urine output. May require dialysis. Endo:? No acute issues.? Underlying diabetes mellitus.? GI:? Ileus on repeat CT abdomen / pelvis with no overt obstruction. May have bowel ischemia component. Lactate improving. General surgery evaluation requested. ID:? Gram-negative bacteremia, likely secondary to UTI source. Id's and susceptibilities are pending.? Continue with cefepime. Heme/Onc:? No acute issues. Psych:? No acute issues. Miscellaneous:? No acute issues. Prophylaxis:? Heparin Diet:? NPO Critical care time spent:? 90 minutes
[2021-03-30] MEDS: Sodium Bicarbonate 8.4% 50 MEQ/50 ML VIAL IVPUSH ×3 (15:25→21:36)
--- NOTE | 2021-03-30 18:01 | P.CONGS_ITS ---
History of Present Illness Consult details Consult date: 03/30/21 Reason for consult: abdominal pain Requesting physician: Wing Gabriel Narrative: This is a 70 y/o female who presented to the ED on 03/26/21 for evaluation of nausea, vomiting and abdominal pain. She is lethargic and unable to answer any questions at this time. History is taken from the record and from discussion with Dr. Dexter adames and nursing staff. She was feeling well on the evening prior to presentation. Shortly after beginning to eat supper, she had acute onset of nausea and vomiting followed by a severe diffuse abdominal pain. The pain was persistent. Workup in the emergency department revealed a white blood count of 13.8, hemoglobin 14.1 and hematocrit 45.4. Electrolytes, Liver function studies and lipase were normal. BUN was elevated at 48 and creatinine was 1.11. CT a of the chest abdomen and pelvis was obtained and revealed stable ascending aortic dilatation, no significant acute changes and no evidence of mesenteric ischemia. The presence of a large umbilical hernia containing fat and of sigmoid diverticulosis was noted. She has an extensive past medical history including GERD, HTN, interstitial lung disease, rheumatoid arthritis, morbid obesity, MARJORIE, chronic lymphadenopathy. In the emergency department, she had persistent severe abdominal pain, etiology unclear. She was noted to be hypertensive and was treated with labetalol. Be cause of the persistent pain, she was admitted to the hospitalist Service for further evaluation and treatment. On the following day, she was noted to be an year occur, lethargic and hypotensive. She was transferred to the ICU and was started on a Narcan drip with improvement. The record indicates that her abdominal examination revealed mild to no tenderness at that time. The following day, 03/29/2021, her abdomen was noted to be soft and nontender with normal bowel sounds. She was off the N arcan drip. She was transferred to the intermediate care unit that night, but the following day again was found to be lethargic and hypotensive She was noted to be tachypneic and was thought to have aspirated a while on CPAP. She was transferred back to the intensive care unit. She is requiring a Levophed drip as well as amiodarone for rate control. Suctioning revealed evidence of enteric contents in the lungs, and over 1000 cc of enteric contents were aspirated from her stomach. OG tube was placed. Lactic acid level was noted to be elevated this morning at 2.4, rising to 3.3 after 2 hours and then declining somewhat to 3.1 after 4 hours. White blood count this morning 8.9, BUN and creatinine rising 100 and 4.04. VBG this morning showed a normal pH of 7.35 and HCO3 17, stable at 7.35 and HCO3 20 this evening. Gram-negative rods identified in blood cultures drawn 03/28/2021. A CT of the abdomen and pelvis was obtained today with results as follows: IMPRESSION: No evidence of obstruction. New small bowel ileus and ascites. Possible small bowel ischemia should be considered. No evidence of pneumatosis, mesenteric or portal vein air. Mild diverticulosis of the colon. 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 Renal cysts. New bilateral lower lobe consolidation probably representing pneumonia. Dictated By: Daniela Mena MD Signed By: <Electronically signed by Daniela Mena MD in OV> 03/30/21 1429 DD/ 1335 TD/TT:? 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 Review of Systems Review of Systems: Yes Unobtainable due to mental condition [facility] Past Medical History Medical History Adult general medical exam 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 Asthma GERD (gastroesophageal reflux disease) History of renal calculi Hypertension Interstitial lung disease Morbid obesity Multinodular thyroid Obstructive sleep apnea Post-menopausal Rheumatoid arthritis Screening for hyperlipidemia Swelling of lower extremity Thyroid nodule Valvular heart disease Family History Family History Father CVD (cardiovascular disease) Mother CVD (cardiovascular disease) Hypertension Myocardial infarction Surgical History Surgical History History of cholecystectomy History of colonoscopy History of D&C History of umbilical hernia repair Social History Social History Household Members: Significant Other Housing: House Do you presently have visiting nurse or other home services: No Alcohol intake: never Patient Tobacco Use Status: Never used Tobacco e-Cigarette/Vaping Use: Never Used Second Hand Smoke Exposure: No service: No Current occupational status: retired and disabled Meds Allergies Allergy/AdvReac Type Severity Reaction Status Date / Time amlodipine Allergy Unknown Unknown Verified 03/21/21 15:39 atenolol Allergy Unknown Unknown Verified 03/21/21 15:39 atorvastatin [Lipitor] Allergy Unknown Unknown Verified 03/21/21 15:39 ciprofloxacin [Cipro] Allergy Unknown Unknown Verified 03/21/21 15:39 Doxycycline Hyclate Allergy Unknown Unknown Verified 03/21/21 15:39 hydrochlorothiazide Allergy Unknown Unknown Verified 03/21/21 15:39 levofloxacin [Levaquin] Allergy Unknown Unknown Verified 03/21/21 15:39 lisinopril Allergy Unknown Unknown Verified 03/21/21 15:39 penicillin V Allergy Unknown rash Verified 03/21/21 15:39 Penicillins Allergy Unknown RASH, DIFF Verified 03/21/21 15:39 BREATHING TO ALL CILLIN DRUGS pseudoephedrine [Sudafed] Allergy Unknown Unknown Verified 03/21/21 15:39 strawberry Allergy Unknown Unknown Verified 03/21/21 15:39 Sulfa (Sulfonamide Allergy Unknown DIFFICULTY Verified 03/21/21 15:39 Antibiotics) BREATHING, [SULFA (SULFONAMIDE HIVES ANTIBIOTICS)] Tetracyclines [TETRACYCLINES] Allergy Unknown ? RXN Verified 03/21/21 15:39 valsartan [Diovan] Allergy Unknown Unknown Verified 03/21/21 15:39 verapamil Allergy Unknown Unknown Verified 03/21/21 15:39 Active Medications: Current Medications Acetaminophen (Acetaminophen 325 Mg Tablet) 650 mg PO Q6H PRN PRN Reason: Pain, Mild (Pain Scale 1-3) Last Admin: 03/29/21 08:05 Dose: 650 mg Documented by: Clotrimazole (Clotrimazole 1 % Cream 15 Gm Tube) 1 appl TOPICAL BID ANA MARIA; Protocol Last Admin: 03/30/21 10:30 Dose: Not Given Documented by: Heparin Sodium (Porcine) (Heparin Sodium,Porcine 5,000 Unit/Ml Vial) 5,000 unit SUBCUT Q8H ANA MARIA Last Admin: 03/30/21 15:25 Dose: 5,000 unit Documented by: Cefepime HCl 1 gm/ Sodium (Chloride) 50 mls @ 100 mls/hr IV Q12H ANA MARIA Last Infusion: 03/30/21 07:51 Dose: Infused Documented by: Albumin Human (Kedbumin 25 %) 100 mls @ 100 mls/hr IV Q6H PENDING SALE TO [facility] Stop: 03/31/21 05:14 Last Infusion: 03/30/21 16:32 Dose: Infused Documented by: Amiodarone HCl 900 mg/ Sodium (Chloride) 518 mls @ 34.533 mls/hr IVCONT .Q15H1M PENDING SALE TO [facility]; Protocol Last Admin: 03/30/21 13:43 Dose: 1 mg/min, 34.53 mls/hr Documented by: Norepinephrine Bitartrate (Levophed) 8 mg in 250 mls @ 0 mls/hr IVCONT .Q0M PENDING SALE TO [facility]; Protocol Last Admin: 03/30/21 17:43 Dose: 0.2 mcg/kg/min, 49.84 mls/hr Documented by: Ondansetron HCl (Ondansetron Hcl 4 Mg/2 Ml Vial) 4 mg IVPUSH Q8H PRN PRN Reason: Nausea and Vomiting Last Admin: 03/29/21 00:36 Dose: 4 mg Documented by: Polyethylene Glycol (Polyethylene Glycol 3350 17 Gm Powd.Pack) 17 gm PO DAILY PENDING SALE TO [facility] Last Admin: 03/30/21 09:14 Dose: Not Given Documented by: Sodium Bicarbonate (Sodium Bicarbonate 8.4% 50 Meq/50 Ml Vial) 50 meq IVPUSH Q4H PENDING SALE TO [facility] Stop: 03/31/21 11:16 Last Admin: 03/30/21 15:25 Dose: 50 meq Documented by: Sodium Chloride (0.9 % Sodium Chloride Flush 3 Ml Syringe) 3 ml IVFLUSH QSHIFT PENDING SALE TO [facility] Last Admin: 03/30/21 15:42 Dose: 3 ml Documented by: Home Medications Medication Instructions Recorded Confirmed Last Taken Type ascorbic acid (vitamin C) 500 mg See Rx Instructions .ROUTE .COMPLEX 04/19/20 03/27/21 Unknown History capsule calcium carbonate 600 mg calcium 600 mg PO DAILY 04/19/20 03/27/21 Unknown History (1,500 mg) tablet (Calcium) cholecalciferol (vitamin D3) 25 25 mcg PO DAILY 04/19/20 03/27/21 Unknown History mcg (1,000 unit) capsule coenzyme Q10 10 mg capsule (Co 10 mg PO DAILY cap 04/19/20 03/27/21 Unknown History Q-10) cyanocobalamin (vitamin B-12) 1,000 mcg PO DAILY 04/19/20 03/27/21 Unknown History 1,000 mcg capsule multivitamin 1 tab PO DAILY 04/19/20 03/27/21 Unknown History omega-3 fatty acids 1,000 mg 1,000 mg PO DAILY 04/19/20 03/27/21 Unknown History capsule ciclopirox 0.77 % topical cream See Protocol TOPICAL USEASDIRECTD 05/12/20 03/27/21 Unknown History (Loprox (as olamine)) ketoconazole 2 % topical cream See Rx Instructions .ROUTE .COMPLEX 05/12/20 03/27/21 Unknown History triamcinolone acetonide 0.1 % See Rx Instructions .ROUTE .COMPLEX 05/12/20 03/27/21 Unknown History topical cream glucosamine sulf NaCl-chondroitin See Rx Instructions .ROUTE .COMPLEX 09/06/20 03/27/21 Unknown History sulf sodium 750 mg-400 mg oral pack ipratropium 0.5 mg-albuterol 3 mg 3 ml INHALATION Q4-6H PRN 09/06/20 03/27/21 Unknown History (2.5 mg base)/3 mL nebulization soln zinc 22 mg tablet 20 mg PO DAILY tab 10/06/20 03/27/21 Unknown History prednisone 10 mg tablet 20 mg PO DAILY 03/21/21 03/27/21 Unknown History gabapentin 100 mg capsule 1 cap PO BEDTIME 03/27/21 03/27/21 Unknown History Physical Exam Vital Signs: Vital Signs: Last Vital Signs Temp 97.3 F 03/30/21 15:00 Pulse 117 H 03/30/21 17:00 Resp 44 H 03/30/21 17:00 BP 84/52 L 03/30/21 17:00 Pulse Ox 91 L 03/30/21 17:00 Body Mass Index 50.3 Const: Other: tachypneic, General: patient obtunded Nutritional Appearance: obese Orientation/consciousness: patient obtunded HENMT: Other: Nasal trumpet in place Head: Yes normocephalic and Yes atraumatic Resp: Effort & Inspection: tachypneic Auscultation: diminished lung sounds Cardio: Rate: regular rate Rhythm: regular rhythm GI: Other: Soft, quiet, no palpable masses, no obvious tenderness Rectal Exam - Female: decreased sphincter tone, No mass and other (A small amount of formed soft brown stool present) Skin: General skin exam: mottling (Lower legs) Neuro: General: patient obtunded Results Labs Result diagrams: 03/30/21 06:18 03/30/21 13:48 Labs: Abnormal lab results 03/30/21 03/30/21 03/30/21 Range/Units 06:18 06:18 09:38 RBC 4.12 L (4.20-5.50) X10*6/uL Hgb 11.8 L (12.0-16.0) g/dl Hct 36.8 L (37-47) % RDW 16.7 H (11.0-16.0) % Neutrophils % (Manual) 74 H (45-73) % Band Neutrophils % 19 H (3-5) % Lymphocytes % (Manual) 2 L (20-40) % Abs Neuts (Manual) 8.3 H (2.2-7.9) X10*3/uL Lymphocytes # (Manual) 0.2 L (0.6-4.8) X10*3/uL VBG HCO3 (22-26) mmol/L Carbon Dioxide 21 L (22-29) mmol/L Anion Gap 24 H (12-20) BUN 96 H* D (9-16) mg/dL Creatinine 3.54 H (0.5-1.4) mg/dL Lactic Acid 2.4 H* (0.5-2.0) mmol/L Lactic Acid Fup @ 2Hr (0.5-2.0) mmol/L Lactic Acid Fup @ 4Hr (0.5-2.0) mmol/L Calcium 8.3 L (8.4-10.2) mg/dL Phosphorus 6.8 H (2.7-4.5) mg/dL Magnesium 3.6 H* (1.6-2.6) mg/dL AST 161 H (5-31) U/L ALT 33 H (0-31) U/L Total Creatine Kinase 4637 H (26-140) U/L Albumin 3.1 L (3.5-5.0) g/dL 03/30/21 03/30/21 03/30/21 Range/Units 09:50 11:48 13:48 RBC (4.20-5.50) X10*6/uL Hgb (12.0-16.0) g/dl Hct (37-47) % RDW (11.0-16.0) % Neutrophils % (Manual) (45-73) % Band Neutrophils % (3-5) % Lymphocytes % (Manual) (20-40) % Abs Neuts (Manual) (2.2-7.9) X10*3/uL Lymphocytes # (Manual) (0.6-4.8) X10*3/uL VBG HCO3 17 L (22-26) mmol/L Carbon Dioxide 19 L (22-29) mmol/L Anion Gap 25 H (12-20) BUN 100 H* (9-16) mg/dL Creatinine 4.07 H* (0.5-1.4) mg/dL Lactic Acid (0.5-2.0) mmol/L Lactic Acid Fup @ 2Hr 3.3 H* (0.5-2.0) mmol/L Lactic Acid Fup @ 4Hr (0.5-2.0) mmol/L Calcium (8.4-10.2) mg/dL Phosphorus (2.7-4.5) mg/dL Magnesium (1.6-2.6) mg/dL AST (5-31) U/L ALT (0-31) U/L Total Creatine Kinase (26-140) U/L Albumin (3.5-5.0) g/dL 03/30/21 Range/Units 14:12 RBC (4.20-5.50) X10*6/uL Hgb (12.0-16.0) g/dl Hct (37-47) % RDW (11.0-16.0) % Neutrophils % (Manual) (45-73) % Band Neutrophils % (3-5) % Lymphocytes % (Manual) (20-40) % Abs Neuts (Manual) (2.2-7.9) X10*3/uL Lymphocytes # (Manual) (0.6-4.8) X10*3/uL VBG HCO3 (22-26) mmol/L Carbon Dioxide (22-29) mmol/L Anion Gap (12-20) BUN (9-16) mg/dL Creatinine (0.5-1.4) mg/dL Lactic Acid (0.5-2.0) mmol/L Lactic Acid Fup @ 2Hr (0.5-2.0) mmol/L Lactic Acid Fup @ 4Hr 3.1 H* (0.5-2.0) mmol/L Calcium (8.4-10.2) mg/dL Phosphorus (2.7-4.5) mg/dL Magnesium (1.6-2.6) mg/dL AST (5-31) U/L ALT (0-31) U/L Total Creatine Kinase (26-140) U/L Albumin (3.5-5.0) g/dL Short CBC 03/30/21 Range/Units 06:18 WBC 8.9 (4.8-10.8) X10*3/uL Hgb 11.8 L (12.0-16.0) g/dl Hct 36.8 L (37-47) % Plt Count 209 (160-400) X10*3/uL BMP 03/30/21 03/30/21 06:18 13:48 Sodium 140 138 Potassium 4.9 4.7 Chloride 100 99 Carbon Dioxide 21 L 19 L BUN 96 H* D 100 H* Creatinine 3.54 H 4.07 H* Calcium 8.3 L 8.4 Cardiac Enzymes 03/30/21 Range/Units 06:18 Total Creatine Kinase 4637 H (26-140) U/L Liver Function 03/30/21 Range/Units 06:18 Total Bilirubin 1.0 (0.0-1.0) mg/dL AST 161 H (5-31) U/L ALT 33 H (0-31) U/L Alkaline Phosphatase 99 (39-117) U/L Albumin 3.1 L (3.5-5.0) g/dL Urine 03/26/21 03/28/21 Range/Units 13:24 16:53 Urine Color YELLOW YELLOW Urine Appearance HAZY HAZY Urine pH 6.0 6.0 (5.0-8.0) Ur Specific [place] 1.025 1.020 (1.005-1.025) Urine Protein TRACE 2+ H (NEG-TRACE) MG/DL Urine Glucose (UA) NEG NEG (NEG) MG/DL All other labs normal. Assessment and Plan (1) Ileus: Status: Acute (2) Pulmonary aspiration: Status: Acute (3) Gram-negative bacteremia: Status: Acute (4) Hypotension: Qualifiers: Hypotension type: unspecified hypotension type Qualified Code(s): I95.9 - Hypotension, unspecified Status: Acute (5) Acute renal failure: Status: Acute 70-year-old female initially presenting with intractable abdominal pain, CTA chest abdomen and pelvis not suggestive of mesenteric ischemia, who apparently had some improvement in abdominal symptoms but has since developed acute renal failure and bilateral aspiration pneumonia. Clinical examination is unreliable due to altered mental status. Imaging workup was not suggestive of significant mesenteric vascular occlusive disease, but some degree of flow related ischemia cannot be ruled out. Surgical exploration does not appear to be required at this time. General surgery will follow along. Procedures Date of Service Date of Service: 03/30/21
[2021-03-30 18:23] LABS: Venous Blood Gas Refer to POC result
[2021-03-30 18:25] LABS: VBG HCO3 20 mmol/L (22-26); VBG pCO2 36 mmHg; VBG pH 7.35 (7.32-7.43); VBG pO2 51 mmHg
[2021-03-30 18:51] LABS: Anion Gap 28 (12-20); Blood Urea Nitrogen 104 mg/dL (9-16); Calcium 8.2 mg/dL (8.4-10.2); Carbon Dioxide 18 mmol/L (22-29); Chloride 100 mmol/L (96-108); Creatinine Clr Calc Pharmacy 16.1; Estimated Glomerular Filt Rate 10; Glucose Random 61 mg/dL (60-115); Potassium 4.7 mmol/L (3.3-5.1); Sodium 141 mmol/L (135-145)
[2021-03-30] MEDS: Clotrimazole 1 % Cream 15 GM TUBE 1 APPL TOPICAL (21:01)
[2021-03-30 22:43] LABS: ABG HCO3 8 mmol/L (22-26); ABG pCO2 14 mmHg (32-45); ABG pCO2 TC 15 mmHg (32-45); ABG pH 7.36 (7.35-7.45); ABG pH TC 7.36 (7.35-7.45); ABG pO2 132 mmHg (83-108); ABG pO2 TC 134 (83-108)
[2021-03-30] MEDS: Phenylephrine HCL 100 MG in 0.9 % Sodium Chloride 250 ML 124.39 MG IVCONT (22:45)
[2021-03-30 22:50] LABS: ABG Refer to POC result
[2021-03-30 23:12] LABS: Troponin-I High Sensitivity 150.2 ng/L (<3.5-17.0)
[2021-03-30] MEDS: propofoL 1,000 MG/100 ML VIAL 31.9 MG IVCONT (23:22)
[2021-03-30] MEDS: Sodium Bicarbonate 8.4% 50 MEQ/50 ML VIAL 100 MEQ IVPUSH (23:22)
[2021-03-30] MEDS: Etomidate 20 MG/10 ML VIAL 30 MG IVPUSH (23:23)
[2021-03-30] MEDS: Digoxin 0.5 MG/2 ML AMPUL IVPUSH (23:23)
[2021-03-30 23:31] LABS: Lactic Acid 11.5 mmol/L (0.5-2.0)
--- NOTE | 2021-03-30 23:43 | W.PM.CCHP ---
Procedures Date of Service Date of Service: 03/30/21 Intubation Consent for Procedure: Emergent-no informed consent obtained Time out performed: Yes Sedative: propofol (also gave propofol 50 mg as single agent had little effect ) Mg given: 50 Laryngoscope: fiber optic video scope ET tube size: 7.5 ET tube uncuffed: Yes Tube secured depth (cm): 25 Tube secured location: lips Tube placement confirmation: visualized tube passing through cords, equal breath sounds bilaterally and confirmation by capnometry Patient tolerated procedure: well Intubation complications: none
[2021-03-31] VITALS (11 sets, daily range): BP systolic 59–155; BP diastolic 32–104; PULSE 51–133; RESP 17–41; TEMP 36.7; O2SAT 96–98
[2021-03-31 00:03] LABS: Alanine Aminotransferase 42 U/L (0-31)
[2021-03-31 00:06] LABS: Albumin Level 3.4 g/dL (3.5-5.0); Alkaline Phosphatase 86 U/L (39-117); Anion Gap 34 (12-20); Aspartate Amino Transferase 147 U/L (5-31); Bilirubin Total 1.2 mg/dL (0.0-1.0); Blood Urea Nitrogen 102 mg/dL (9-16); Calcium 7.8 mg/dL (8.4-10.2); Carbon Dioxide 19 mmol/L (22-29); Chloride 101 mmol/L (96-108); Creatinine Clr Calc Pharmacy 15.4; Estimated Glomerular Filt Rate 9; Glucose Random 45 mg/dL (60-115); Potassium 5.3 mmol/L (3.3-5.1); Sodium 149 mmol/L (135-145); Total Protein 5.2 g/dL (6.5-8.0)
--- NOTE | 2021-03-31 00:11 | W.MHC.ACPN ---
Documented by User: RONI De Luna 03/31/21 04:39 Advanced Care Planning Note Advanced Care Planning Note Discussed with: other (patients partner and 'HCP but no docs available for now ) Time spent (in minutes): 30 Narrative: I was able to talked to her partner and states that he contacted her brother and sister who live in [place] and they are all thinking about what to do next; her prognosis is poor and she is constantly hypotensive, moddled and ill looking. She was intubated and placed on the vent. They are aware of all that. They are also aware that the pt was seeing by the surgeon earlier and no intervention was decided at the time. Since then I talked to Arley again and he is aware that she is requiring more support. [address] Gabriel and he pints out the low bicarb which was treated with Bicarb 2 amps and mentioned worsen lactic acid that he had ordered, it is higher(11 from 3.5) and the concern is ischemic Bowel. Dr Brody called and case discussed with her at 0130 am who after talking to the family called back and the patient will be taken to the OR for Exp Surgery. Typed and crossed. 0200 am 2 more amps of bicarb ordered prior to OR; pt now maxed on pressors and end tital coming down. I am concern the patient will CODE any time, Dr Gabriel aware, plan developed and discussed with Anesthesia MD. 0210 Lactic acid is now 16. 0235 Discussed case with Mary Grace who after coming in to set up the OR and upon trying to get consent from the family for the procedure; the Partner decided not to proceed with the Surgery. We do know that the patient has a sister who called and was informed about the events; Galina House [phone] Problems Discussed (1) Ileus: (2) Pulmonary aspiration: (3) Gram-negative bacteremia: (4) Hypotension: (5) Acute renal failure: Documented by User: Wing Gabriel MD 03/31/21 10:24 Advanced Care Planning Note Advanced Care Planning Note Narrative: I was able to talked to her partner and states that he contacted her brother and sister who live in [place] and they are all thinking about what to do next; her prognosis is poor and she is constantly hypotensive, moddled and ill looking. She was intubated and placed on the vent. They are aware of all that. They are also aware that the pt was seeing by the surgeon earlier and no intervention was decided at the time. Since then I talked to Arley again and he is aware that she is requiring more support. [address] Gabriel and he points out the low bicarb which was treated with Bicarb 2 amps and mentioned worsen lactic acid that he had ordered, it is higher(11 from 3.5) and the concern is ischemic Bowel. Dr Brody called and case discussed with her at 0100 am who after talking to the family called back and the patient will be taken to the OR for Exp Surgery. Typed and crossed. 0200 am 2 more amps of bicarb ordered prior to OR; pt now maxed on pressors and end tital coming down. I am concern the patient will CODE any time, Dr Gabriel aware, plan developed and discussed with Anesthesia MD. 0210 Lactic acid is now 16. 0235 Discussed case with Mary Grace who after coming in to set up the OR and upon trying to get consent from the family for the procedure; the Partner decided not to proceed with the Surgery. We do know that the patient has a sister who called and was informed about the events; Galina House [phone] Problems Discussed (1) Ileus: (2) Pulmonary aspiration: (3) Gram-negative bacteremia: (4) Hypotension: (5) Acute renal failure:
[2021-03-31] MEDS: propofoL 1,000 MG/100 ML VIAL 31.9 MG IVCONT ×2 (00:29→03:43)
[2021-03-31] MEDS: Phenylephrine HCL 100 MG in 0.9 % Sodium Chloride 250 ML 124.39 MG IVCONT ×2 (00:30→02:46)
--- NOTE | 2021-03-31 00:36 | PM.CCN ---
Critical Care Event Note Summary Date of Service: 03/31/21 Code activated: No Narrative: Worsening metaboloic acidosis with rising lactate noted. Concern for worsening bowel ischemia. Surgical re-evaluation requested. Critical Care Time (minutes): 0
[2021-03-31 01:03] LABS: Reflex Lactate? Lactic Acid Added
--- NOTE | 2021-03-31 01:17 | PC.NURSE ---
Addendum entered by Kellie Foster RN 03/31/21 04:33: APPROX 0400- Patient in VTACH, subsequently lost pulse. CPR initiated. See CPR worksheet. Time of 424. Declined by BRAYDEN, case [id number], bank representative Fritz. Original Note: Since 1899, patient requiring rapid titration of pressors to maintain map>65. Now maxed on levo, la, and vasopressin. IVP bicarb x 4, ca gluconate 2 gm, 1 amp d50 for bg 45. Patient mottled all over. Toes and tongue necrotic. Completely unresponsive. Intubated approx 2129. Suctioned large amount of ?fecal matter out of airway RR maintains in 50's despite propofol @ 40 mcg/kg/min buttocks red/purple. unable to safely repo. on airloss with prevalon. No UOP. PA contacted family. To remain a full code. ?transfer to OR for exploratory lap?
[2021-03-31] MEDS: Calcium Gluconate/NaCl,Iso-Osm 2 GM/100 ML PLAST..BAG IV (01:23)
[2021-03-31] MEDS: Sodium Bicarbonate 8.4% 50 MEQ/50 ML VIAL 100 MEQ IVPUSH (01:23)
--- NOTE | 2021-03-31 01:45 | P.EN_ITS ---
Event Note Date of Service: 03/31/21 Event Note: Required intubation, repeat labs show marked elevation of lactic a jakob. Continues to require pressor support, now on levophed, la, vasopressin. Spoke with her partner and health care proxy Arley ePrez by phone, discussed that pt. is critically ill with worsening condition, probable diagnosis of mesenteric ischemia. Discussed options for continued medical treatment and for surgery. Reviewed risks, explained that she will not survive without surgery and that risk of is high with surgery as well. Explained that we might not identify a correctable condition if diagnosis is in error or if there is extensive involvement of the intestine. Reviewed that if intestine can be resected, an ostomy will be created. Questions answered. Mr. Perez elects to proceed with surgery. OR team notified.
[2021-03-31 02:05] LABS: ~Lactic Acid-LAB USE ONLY 16.1 mmol/L (0.5-2.0)
[2021-03-31] MEDS: Sodium Bicarbonate 8.4% 50 MEQ/50 ML VIAL IVPUSH (02:09)
--- NOTE | 2021-03-31 02:13 | HO.ANESPROP2 ---
HPI - Anesthesia Eval Consult details Narrative: ischemic bowel, multiple organ failure, severe shock PMFSH Active Problems Active Problems: All Active Problems (Updated 03/30/21 @ 16:33 by Wing Gabriel MD) Ileus (Acute) Pulmonary aspiration (Acute) Encephalopathy acute (Acute) Gram-negative bacteremia (Acute) Hypotension (Acute) Leukocytosis (Acute) Acute renal failure (Acute) Intractable abdominal pain (Acute) UTI (urinary tract infection) (Acute) Hypertension (Acute) Lymphedema (Acute) Rectal bleeding (Acute) Constipation (Acute) Right hip pain (Acute) Screening for hyperlipidemia (Acute) Post-menopausal (Acute) Palpitations (Acute) Multinodular thyroid (Acute) Renal cyst (Acute) Angiomyolipoma (Acute) Ascending aorta dilatation (Acute) Swelling of lower extremity (Acute) GERD (gastroesophageal reflux disease) (Acute) Obstructive sleep apnea (Acute) Hypertension (Acute) Asthma (Acute) Morbid obesity (Acute) Interstitial lung disease (Acute) Rheumatoid arthritis (Acute) Past Medical History Medical History Adult general medical exam 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 Asthma GERD (gastroesophageal reflux disease) History of renal calculi Hypertension Interstitial lung disease Morbid obesity Multinodular thyroid Obstructive sleep apnea Post-menopausal Rheumatoid arthritis Screening for hyperlipidemia Swelling of lower extremity Thyroid nodule Valvular heart disease Family History Family History Father CVD (cardiovascular disease) Mother CVD (cardiovascular disease) Hypertension Myocardial infarction Surgical History Surgical History History of cholecystectomy History of colonoscopy History of D&C History of umbilical hernia repair Social History Social History Household Members: Significant Other Housing: House Do you presently have visiting nurse or other home services: No Alcohol intake: never Patient Tobacco Use Status: Never used Tobacco e-Cigarette/Vaping Use: Never Used Second Hand Smoke Exposure: No service: No Current occupational status: retired and disabled Meds Allergies Allergy/AdvReac Type Severity Reaction Status Date / Time amlodipine Allergy Unknown Unknown Verified 03/21/21 15:39 atenolol Allergy Unknown Unknown Verified 03/21/21 15:39 atorvastatin [Lipitor] Allergy Unknown Unknown Verified 03/21/21 15:39 ciprofloxacin [Cipro] Allergy Unknown Unknown Verified 03/21/21 15:39 Doxycycline Hyclate Allergy Unknown Unknown Verified 03/21/21 15:39 hydrochlorothiazide Allergy Unknown Unknown Verified 03/21/21 15:39 levofloxacin [Levaquin] Allergy Unknown Unknown Verified 03/21/21 15:39 lisinopril Allergy Unknown Unknown Verified 03/21/21 15:39 penicillin V Allergy Unknown rash Verified 03/21/21 15:39 Penicillins Allergy Unknown RASH, DIFF Verified 03/21/21 15:39 BREATHING TO ALL CILLIN DRUGS pseudoephedrine [Sudafed] Allergy Unknown Unknown Verified 03/21/21 15:39 strawberry Allergy Unknown Unknown Verified 03/21/21 15:39 Sulfa (Sulfonamide Allergy Unknown DIFFICULTY Verified 03/21/21 15:39 Antibiotics) BREATHING, [SULFA (SULFONAMIDE HIVES ANTIBIOTICS)] Tetracyclines [TETRACYCLINES] Allergy Unknown ? RXN Verified 03/21/21 15:39 valsartan [Diovan] Allergy Unknown Unknown Verified 03/21/21 15:39 verapamil Allergy Unknown Unknown Verified 03/21/21 15:39 Active Medications: Current Medications Acetaminophen (Acetaminophen 325 Mg Tablet) 650 mg PO Q6H PRN PRN Reason: Pain, Mild (Pain Scale 1-3) Last Admin: 03/29/21 08:05 Dose: 650 mg Documented by: Clotrimazole (Clotrimazole 1 % Cream 15 Gm Tube) 1 appl TOPICAL BID ANA MARIA; Protocol Last Admin: 03/30/21 21:01 Dose: 1 appl Documented by: Heparin Sodium (Porcine) (Heparin Sodium,Porcine 5,000 Unit/Ml Vial) 5,000 unit SUBCUT Q8H [facility] Last Admin: 03/30/21 21:35 Dose: 5,000 unit Documented by: Cefepime HCl 1 gm/ Sodium (Chloride) 50 mls @ 100 mls/hr IV Q12H [facility] Last Infusion: 03/30/21 19:23 Dose: Infused Documented by: Albumin Human (Kedbumin 25 %) 100 mls @ 100 mls/hr IV Q6H [facility] Stop: 03/31/21 05:14 Last Infusion: 03/30/21 22:47 Dose: Infused Documented by: Amiodarone HCl 900 mg/ Sodium (Chloride) 518 mls @ 34.533 mls/hr IVCONT .Q15H1M ANA MARIA; Protocol Last Infusion: 03/30/21 21:00 Dose: 1 mg/min, 34.53 mls/hr Documented by: Norepinephrine Bitartrate (Levophed) 8 mg in 250 mls @ 0 mls/hr IVCONT .Q0M ANA MARIA; Protocol Last Admin: 03/31/21 01:56 Dose: 1 mcg/kg/min, 249.19 mls/hr Documented by: Phenylephrine HCl 100 mg/ (Sodium Chloride) 260 mls @ 0 mls/hr IVCONT .Q0M ANA MARIA; Protocol Last Admin: 03/31/21 00:30 Dose: 6 mcg/kg/min, 124.39 mls/hr Documented by: Vasopressin 20 unit/ Sodium (Chloride) 101 mls @ 12.12 mls/hr IVCONT .Q8H20M ANA MARIA Last Admin: 03/30/21 22:46 Dose: 0.04 unit/min, 12.12 mls/hr Documented by: Propofol (Diprivan) 1,000 mg in 100 mls @ 0 mls/hr IVCONT .Q0M ANA MARIA; Protocol Last Admin: 03/31/21 00:29 Dose: 40 mcg/kg/min, 31.9 mls/hr Documented by: Calcium Gluconate (Calcium Gluconate) 2 gm in 100 mls @ 50 mls/hr IV ONCE ONE Stop: 03/31/21 03:06 Last Admin: 03/31/21 01:23 Dose: 50 mls/hr Documented by: Ondansetron HCl (Ondansetron Hcl 4 Mg/2 Ml Vial) 4 mg IVPUSH Q8H PRN PRN Reason: Nausea and Vomiting Last Admin: 03/29/21 00:36 Dose: 4 mg Documented by: Polyethylene Glycol (Polyethylene Glycol 3350 17 Gm Powd.Pack) 17 gm PO DAILY ANA MARIA Last Admin: 03/30/21 09:14 Dose: Not Given Documented by: Sodium Bicarbonate (Sodium Bicarbonate 8.4% 50 Meq/50 Ml Vial) 50 meq IVPUSH Q4H ANA MARIA Stop: 03/31/21 11:16 Last Admin: 03/31/21 02:09 Dose: 50 meq Documented by: Sodium Chloride (0.9 % Sodium Chloride Flush 3 Ml Syringe) 3 ml IVFLUSH QSHIFT [facility] Last Admin: 03/30/21 22:42 Dose: 3 ml Documented by: Home Medications Medication Instructions Recorded Confirmed Last Taken Type ascorbic acid (vitamin C) 500 mg See Rx Instructions .ROUTE .COMPLEX 04/19/20 03/27/21 Unknown History capsule calcium carbonate 600 mg calcium 600 mg PO DAILY 04/19/20 03/27/21 Unknown History (1,500 mg) tablet (Calcium) cholecalciferol (vitamin D3) 25 25 mcg PO DAILY 04/19/20 03/27/21 Unknown History mcg (1,000 unit) capsule coenzyme Q10 10 mg capsule (Co 10 mg PO DAILY cap 04/19/20 03/27/21 Unknown History Q-10) cyanocobalamin (vitamin B-12) 1,000 mcg PO DAILY 04/19/20 03/27/21 Unknown History 1,000 mcg capsule multivitamin 1 tab PO DAILY 04/19/20 03/27/21 Unknown History omega-3 fatty acids 1,000 mg 1,000 mg PO DAILY 04/19/20 03/27/21 Unknown History capsule ciclopirox 0.77 % topical cream See Protocol TOPICAL USEASDIRECTD 05/12/20 03/27/21 Unknown History (Loprox (as olamine)) ketoconazole 2 % topical cream See Rx Instructions .ROUTE .COMPLEX 05/12/20 03/27/21 Unknown History triamcinolone acetonide 0.1 % See Rx Instructions .ROUTE .COMPLEX 05/12/20 03/27/21 Unknown History topical cream glucosamine sulf NaCl-chondroitin See Rx Instructions .ROUTE .COMPLEX 09/06/20 03/27/21 Unknown History sulf sodium 750 mg-400 mg oral pack ipratropium 0.5 mg-albuterol 3 mg 3 ml INHALATION Q4-6H PRN 09/06/20 03/27/21 Unknown History (2.5 mg base)/3 mL nebulization soln zinc 22 mg tablet 20 mg PO DAILY tab 10/06/20 03/27/21 Unknown History prednisone 10 mg tablet 20 mg PO DAILY 03/21/21 03/27/21 Unknown History gabapentin 100 mg capsule 1 cap PO BEDTIME 03/27/21 03/27/21 Unknown History Exam Exam Date and Time: March 31, 2021212 Height,Weight and Vital Signs: Height 5 ft 4 in Weight 132.9 kg Last Vital Signs Temp 98 F 03/30/21 20:00 Pulse 133 H 03/31/21 02:10 Resp 39 H 03/31/21 02:00 BP 134/104 H 03/31/21 02:10 Pulse Ox 97 03/31/21 00:00 Pertinent Lab Results Pertinent Lab Results: Laboratory Tests 03/26/21 03/26/21 03/26/21 10:19 10:19 10:19 WBC 13.8 H RBC 5.00 Hgb 14.1 Hct 45.4 MCV 90.8 MCH 28.2 MCHC 31.1 RDW 15.7 Plt Count 341 MPV 9.9 Immature Gran % (Auto) 0.4 Neut % (Auto) 79.5 H Lymph % (Auto) 11.0 L Christian % (Auto) 8.0 Eos % (Auto) 0.9 Baso % (Auto) 0.2 Lymph # (Auto) 1.5 Christian # (Auto) 1.1 Eos # (Auto) 0.1 Baso # (Auto) 0.0 Abs Immat Gran (auto) 0.05 H Absolute Neuts (auto) 11.0 H Absolute Nucleated RBC 0.000 Nucleated RBC % (auto) 0.0 Neutrophils % (Manual) Band Neutrophils % Lymphocytes % (Manual) Monocytes % (Manual) Eosinophils % (Manual) Metamyelocytes % Abs Neuts (Manual) Lymphocytes # (Manual) Monocytes # (Manual) Eosinophils # (Manual) Metamyelocytes # Toxic Vacuolation Dohle Bodies Platelet Estimate Plt Morphology Comment RBC Morphology Hypochromasia Tear Drop Cells Ovalocytes [place] Cells Acanthocytes (Spur) Smear Path Review D-Dimer O2 Saturation ABG pH at Pt Temp ABG pH (Temp Correct) ABG pCO2 at Pt Temp ABG pCO2 (Temp Corrct ABG pO2 at Pt Temp ABG pO2 (Temp Correct ABG HCO3 ABG Base Excess (Actual) VBG pH VBG pCO2 VBG pO2 VBG HCO3 VBG O2 Saturation VBG Base Excess Sodium 141 Potassium 4.4 Chloride 102 Carbon Dioxide 29 Anion Gap 14 BUN 48 H D Creatinine 1.11 Estim Creat Clear Calc 65.9 Estimated GFR 49 POC Glucose Random Glucose 130 H Lactic Acid Lactic Acid Fup @ 2Hr Lactic Acid Fup @ 4Hr Calcium 10.5 H D Phosphorus Magnesium Total Bilirubin 0.7 Direct Bilirubin 0.2 AST 19 ALT 18 Alkaline Phosphatase 108 D Ammonia Total Creatine Kinase Troponin I High Sens 19.1 H* B-Natriuretic Peptide Total Protein 7.4 Albumin 3.7 Lipase 74 Urine Color Urine Appearance Urine pH Ur Specific Emmett Urine Protein Urine Glucose (UA) Urine Ketones Urine Blood Urine Nitrite Ur Leukocyte Esterase Urine RBC Urine WBC Ur Squamous Epith Cells Urine Bacteria Urine Mucus Ur Random Sodium Urine Creatinine Urine Opiates Screen Urine Fentanyl Screen Ur Barbiturates Screen Ur Phencyclidine Scrn Ur Amphetamines Screen U Benzodiazepines Scrn Urine Cocaine Screen U Marijuana (THC) Screen COVID-19 (SUZIE) COVID-19 Clin Com Hep Bs Antigen Hep Bs Antibody Hep B Core Total Ab Hepatitis C Ab (EIA) Blood Type Antibody Screen 03/26/21 03/26/21 03/26/21 11:04 13:24 13:24 WBC RBC Hgb Hct MCV MCH MCHC RDW Plt Count MPV Immature Gran % (Auto) Neut % (Auto) Lymph % (Auto) Christian % (Auto) Eos % (Auto) Baso % (Auto) Lymph # (Auto) Christian # (Auto) Eos # (Auto) Baso # (Auto) Abs Immat Gran (auto) Absolute Neuts (auto) Absolute Nucleated RBC Nucleated RBC % (auto) Neutrophils % (Manual) Band Neutrophils % Lymphocytes % (Manual) Monocytes % (Manual) Eosinophils % (Manual) Metamyelocytes % Abs Neuts (Manual) Lymphocytes # (Manual) Monocytes # (Manual) Eosinophils # (Manual) Metamyelocytes # Toxic Vacuolation Dohle Bodies Platelet Estimate Plt Morphology Comment RBC Morphology Hypochromasia Tear Drop Cells Ovalocytes [place] Cells Acanthocytes (Spur) Smear Path Review D-Dimer 1876 O2 Saturation ABG pH at Pt Temp ABG pH (Temp Correct) ABG pCO2 at Pt Temp ABG pCO2 (Temp Corrct ABG pO2 at Pt Temp ABG pO2 (Temp Correct ABG HCO3 ABG Base Excess (Actual) VBG pH VBG pCO2 VBG pO2 VBG HCO3 VBG O2 Saturation VBG Base Excess Sodium Potassium Chloride Carbon Dioxide Anion Gap BUN Creatinine Estim Creat Clear Calc Estimated GFR POC Glucose Random Glucose Lactic Acid Lactic Acid Fup @ 2Hr Lactic Acid Fup @ 4Hr Calcium Phosphorus Magnesium Total Bilirubin Direct Bilirubin AST ALT Alkaline Phosphatase Ammonia Total Creatine Kinase Troponin I High Sens 21.8 H* B-Natriuretic Peptide Total Protein Albumin Lipase Urine Color YELLOW Urine Appearance HAZY Urine pH 6.0 Ur Specific Emmett 1.025 Urine Protein TRACE Urine Glucose (UA) NEG Urine Ketones NEG Urine Blood 1+ H Urine Nitrite NEG Ur Leukocyte Esterase NEG Urine RBC 1-4 Urine WBC 1-4 Ur Squamous Epith Cells 2+ Urine Bacteria TRACE Urine Mucus 2+ Ur Random Sodium Urine Creatinine Urine Opiates Screen Urine Fentanyl Screen Ur Barbiturates Screen Ur Phencyclidine Scrn Ur Amphetamines Screen U Benzodiazepines Scrn Urine Cocaine Screen U Marijuana (THC) Screen COVID-19 (SUZIE) COVID-19 Clin Com Hep Bs Antigen Hep Bs Antibody Hep B Core Total Ab Hepatitis C Ab (EIA) Blood Type Antibody Screen 03/26/21 03/26/21 03/27/21 13:30 15:12 09:54 WBC RBC Hgb Hct MCV MCH MCHC RDW Plt Count MPV Immature Gran % (Auto) Neut % (Auto) Lymph % (Auto) Christian % (Auto) Eos % (Auto) Baso % (Auto) Lymph # (Auto) Christian # (Auto) Eos # (Auto) Baso # (Auto) Abs Immat Gran (auto) Absolute Neuts (auto) Absolute Nucleated RBC Nucleated RBC % (auto) Neutrophils % (Manual) Band Neutrophils % Lymphocytes % (Manual) Monocytes % (Manual) Eosinophils % (Manual) Metamyelocytes % Abs Neuts (Manual) Lymphocytes # (Manual) Monocytes # (Manual) Eosinophils # (Manual) Metamyelocytes # Toxic Vacuolation Dohle Bodies Platelet Estimate Plt Morphology Comment RBC Morphology Hypochromasia Tear Drop Cells Ovalocytes [place] Cells Acanthocytes (Spur) Smear Path Review D-Dimer O2 Saturation ABG pH at Pt Temp ABG pH (Temp Correct) ABG pCO2 at Pt Temp ABG pCO2 (Temp Corrct ABG pO2 at Pt Temp ABG pO2 (Temp Correct ABG HCO3 ABG Base Excess (Actual) VBG pH VBG pCO2 VBG pO2 VBG HCO3 VBG O2 Saturation VBG Base Excess Sodium Potassium Chloride Carbon Dioxide Anion Gap BUN Creatinine Estim Creat Clear Calc Estimated GFR POC Glucose 192 H Random Glucose Lactic Acid Lactic Acid Fup @ 2Hr Lactic Acid Fup @ 4Hr Calcium Phosphorus Magnesium Total Bilirubin Direct Bilirubin AST ALT Alkaline Phosphatase Ammonia Total Creatine Kinase Troponin I High Sens B-Natriuretic Peptide 22 Total Protein Albumin Lipase Urine Color Urine Appearance Urine pH Ur Specific Emmett Urine Protein Urine Glucose (UA) Urine Ketones Urine Blood Urine Nitrite Ur Leukocyte Esterase Urine RBC Urine WBC Ur Squamous Epith Cells Urine Bacteria Urine Mucus Ur Random Sodium Urine Creatinine Urine Opiates Screen Urine Fentanyl Screen Ur Barbiturates Screen Ur Phencyclidine Scrn Ur Amphetamines Screen U Benzodiazepines Scrn Urine Cocaine Screen U Marijuana (THC) Screen COVID-19 (SUZIE) Negative COVID-19 Clin Com See Note Hep Bs Antigen Hep Bs Antibody Hep B Core Total Ab Hepatitis C Ab (EIA) Blood Type Antibody Screen 03/27/21 03/27/21 03/27/21 11:20 12:15 12:15 WBC 37.3 H* RBC 5.04 Hgb 14.7 Hct 45.7 MCV 90.7 MCH 29.2 MCHC 32.2 RDW 15.9 Plt Count 363 MPV 9.8 Immature Gran % (Auto) Cancelled Neut % (Auto) Cancelled Lymph % (Auto) Cancelled Christian % (Auto) Cancelled Eos % (Auto) Cancelled Baso % (Auto) Cancelled Lymph # (Auto) Cancelled Christian # (Auto) Cancelled Eos # (Auto) Cancelled Baso # (Auto) Cancelled Abs Immat Gran (auto) Cancelled Absolute Neuts (auto) Cancelled Absolute Nucleated RBC 0.000 Nucleated RBC % (auto) 0.0 Neutrophils % (Manual) 87 H Band Neutrophils % 5 Lymphocytes % (Manual) 1 L Monocytes % (Manual) 7 Eosinophils % (Manual) Metamyelocytes % Abs Neuts (Manual) 34.3 H Lymphocytes # (Manual) 0.4 L Monocytes # (Manual) 2.6 H Eosinophils # (Manual) Metamyelocytes # Toxic Vacuolation PRESENT Dohle Bodies Platelet Estimate NORMAL Plt Morphology Comment NORMAL RBC Morphology NOTED Hypochromasia Tear Drop Cells 1+ (0-2) Ovalocytes 1+ (5-14) [place] Cells Acanthocytes (Spur) 1+ (0-2) Smear Path Review SEE NOTE D-Dimer O2 Saturation ABG pH at Pt Temp ABG pH (Temp Correct) ABG pCO2 at Pt Temp ABG pCO2 (Temp Corrct ABG pO2 at Pt Temp ABG pO2 (Temp Correct ABG HCO3 ABG Base Excess (Actual) VBG pH VBG pCO2 VBG pO2 VBG HCO3 VBG O2 Saturation VBG Base Excess Sodium 140 Potassium 4.3 Chloride 100 Carbon Dioxide 25 Anion Gap 19 BUN 51 H Creatinine 1.36 Estim Creat Clear Calc 53.7 Estimated GFR 39 POC Glucose 155 H Random Glucose 165 H Lactic Acid Lactic Acid Fup @ 2Hr Lactic Acid Fup @ 4Hr Calcium 9.7 D Phosphorus Magnesium Total Bilirubin Direct Bilirubin AST ALT Alkaline Phosphatase Ammonia Total Creatine Kinase Troponin I High Sens B-Natriuretic Peptide Total Protein Albumin Lipase Urine Color Urine Appearance Urine pH Ur Specific Emmett Urine Protein Urine Glucose (UA) Urine Ketones Urine Blood Urine Nitrite Ur Leukocyte Esterase Urine RBC Urine WBC Ur Squamous Epith Cells Urine Bacteria Urine Mucus Ur Random Sodium Urine Creatinine Urine Opiates Screen Urine Fentanyl Screen Ur Barbiturates Screen Ur Phencyclidine Scrn Ur Amphetamines Screen U Benzodiazepines Scrn Urine Cocaine Screen U Marijuana (THC) Screen COVID-19 (SUZIE) COVID-19 Clin Com Hep Bs Antigen Hep Bs Antibody Hep B Core Total Ab Hepatitis C Ab (EIA) Blood Type Antibody Screen 03/28/21 03/28/21 03/28/21 07:41 07:41 09:13 WBC 19.7 H RBC 4.48 Hgb 12.7 Hct 40.8 MCV 91.1 MCH 28.3 MCHC 31.1 RDW 16.3 H Plt Count 269 D MPV 10.4 Immature Gran % (Auto) Cancelled Neut % (Auto) Cancelled Lymph % (Auto) Cancelled Christian % (Auto) Cancelled Eos % (Auto) Cancelled Baso % (Auto) Cancelled Lymph # (Auto) Cancelled Christian # (Auto) Cancelled Eos # (Auto) Cancelled Baso # (Auto) Cancelled Abs Immat Gran (auto) Cancelled Absolute Neuts (auto) Cancelled Absolute Nucleated RBC 0.000 Nucleated RBC % (auto) 0.0 Neutrophils % (Manual) 80 H Band Neutrophils % 16 H Lymphocytes % (Manual) 3 L Monocytes % (Manual) 1 L Eosinophils % (Manual) Metamyelocytes % Abs Neuts (Manual) 18.9 H Lymphocytes # (Manual) 0.6 Monocytes # (Manual) 0.2 Eosinophils # (Manual) Metamyelocytes # Toxic Vacuolation Dohle Bodies Platelet Estimate NORMAL Plt Morphology Comment NORMAL RBC Morphology NOTED Hypochromasia 1+ (5-14) Tear Drop Cells Ovalocytes 1+ (5-14) [place] Cells Acanthocytes (Spur) 1+ (0-2) Smear Path Review D-Dimer O2 Saturation ABG pH at Pt Temp ABG pH (Temp Correct) ABG pCO2 at Pt Temp ABG pCO2 (Temp Corrct ABG pO2 at Pt Temp ABG pO2 (Temp Correct ABG HCO3 ABG Base Excess (Actual) VBG pH VBG pCO2 VBG pO2 VBG HCO3 VBG O2 Saturation VBG Base Excess Sodium 136 Potassium 4.7 Chloride 98 Carbon Dioxide 22 Anion Gap 21 H BUN 69 H Creatinine 2.76 H Estim Creat Clear Calc 26.4 Estimated GFR 17 POC Glucose 67 Random Glucose 89 Lactic Acid Lactic Acid Fup @ 2Hr Lactic Acid Fup @ 4Hr Calcium 8.7 D Phosphorus Magnesium Total Bilirubin Direct Bilirubin AST ALT Alkaline Phosphatase Ammonia Total Creatine Kinase Troponin I High Sens B-Natriuretic Peptide Total Protein Albumin Lipase Urine Color Urine Appearance Urine pH Ur Specific Emmett Urine Protein Urine Glucose (UA) Urine Ketones Urine Blood Urine Nitrite Ur Leukocyte Esterase Urine RBC Urine WBC Ur Squamous Epith Cells Urine Bacteria Urine Mucus Ur Random Sodium Urine Creatinine Urine Opiates Screen Urine Fentanyl Screen Ur Barbiturates Screen Ur Phencyclidine Scrn Ur Amphetamines Screen U Benzodiazepines Scrn Urine Cocaine Screen U Marijuana (THC) Screen COVID-19 (SUZIE) COVID-19 Clin Com Hep Bs Antigen Hep Bs Antibody Hep B Core Total Ab Hepatitis C Ab (EIA) Blood Type Antibody Screen 03/28/21 03/28/21 03/28/21 11:27 16:53 16:53 WBC RBC Hgb Hct MCV MCH MCHC RDW Plt Count MPV Immature Gran % (Auto) Neut % (Auto) Lymph % (Auto) Christian % (Auto) Eos % (Auto) Baso % (Auto) Lymph # (Auto) Christian # (Auto) Eos # (Auto) Baso # (Auto) Abs Immat Gran (auto) Absolute Neuts (auto) Absolute Nucleated RBC Nucleated RBC % (auto) Neutrophils % (Manual) Band Neutrophils % Lymphocytes % (Manual) Monocytes % (Manual) Eosinophils % (Manual) Metamyelocytes % Abs Neuts (Manual) Lymphocytes # (Manual) Monocytes # (Manual) Eosinophils # (Manual) Metamyelocytes # Toxic Vacuolation Dohle Bodies Platelet Estimate Plt Morphology Comment RBC Morphology Hypochromasia Tear Drop Cells Ovalocytes [place] Cells Acanthocytes (Spur) Smear Path Review D-Dimer O2 Saturation ABG pH at Pt Temp ABG pH (Temp Correct) ABG pCO2 at Pt Temp ABG pCO2 (Temp Corrct ABG pO2 at Pt Temp ABG pO2 (Temp Correct ABG HCO3 ABG Base Excess (Actual) VBG pH VBG pCO2 VBG pO2 VBG HCO3 VBG O2 Saturation VBG Base Excess Sodium Potassium Chloride Carbon Dioxide Anion Gap BUN Creatinine Estim Creat Clear Calc Estimated GFR POC Glucose 104 Random Glucose Lactic Acid Lactic Acid Fup @ 2Hr Lactic Acid Fup @ 4Hr Calcium Phosphorus Magnesium Total Bilirubin Direct Bilirubin AST ALT Alkaline Phosphatase Ammonia Total Creatine Kinase Troponin I High Sens B-Natriuretic Peptide Total Protein Albumin Lipase Urine Color YELLOW Urine Appearance HAZY Urine pH 6.0 Ur Specific Emmett 1.020 Urine Protein 2+ H Urine Glucose (UA) NEG Urine Ketones NEG Urine Blood TRACE Urine Nitrite POS H Ur Leukocyte Esterase NEG Urine RBC 0-2 Urine WBC 1-4 Ur Squamous Epith Cells TRACE Urine Bacteria 3+ Urine Mucus Ur Random Sodium Urine Creatinine Urine Opiates Screen POSITIVE H Urine Fentanyl Screen Not Detected Ur Barbiturates Screen Not Detected Ur Phencyclidine Scrn Not Detected Ur Amphetamines Screen Not Detected U Benzodiazepines Scrn Not Detected Urine Cocaine Screen Not Detected U Marijuana (THC) Screen Not Detected COVID-19 (SUZIE) COVID-19 Clin Com Hep Bs Antigen Hep Bs Antibody Hep B Core Total Ab Hepatitis C Ab (EIA) Blood Type Antibody Screen 03/28/21 03/28/21 03/28/21 16:54 17:05 17:05 WBC 13.2 H RBC 4.37 Hgb 12.6 Hct 40.4 MCV 92.4 MCH 28.8 MCHC 31.2 RDW 16.7 H Plt Count 240 MPV 10.3 Immature Gran % (Auto) Cancelled Neut % (Auto) Cancelled Lymph % (Auto) Cancelled Christian % (Auto) Cancelled Eos % (Auto) Cancelled Baso % (Auto) Cancelled Lymph # (Auto) Cancelled Christian # (Auto) Cancelled Eos # (Auto) Cancelled Baso # (Auto) Cancelled Abs Immat Gran (auto) Cancelled Absolute Neuts (auto) Cancelled Absolute Nucleated RBC 0.000 Nucleated RBC % (auto) 0.0 Neutrophils % (Manual) 9 L Band Neutrophils % 74 H Lymphocytes % (Manual) 8 L Monocytes % (Manual) 2 Eosinophils % (Manual) Metamyelocytes % 7 Abs Neuts (Manual) 11.0 H Lymphocytes # (Manual) 1.1 Monocytes # (Manual) 0.3 Eosinophils # (Manual) Metamyelocytes # 0.9 Toxic Vacuolation Dohle Bodies Platelet Estimate NORMAL Plt Morphology Comment NORMAL RBC Morphology NOTED Hypochromasia Tear Drop Cells Ovalocytes [place] Cells Acanthocytes (Spur) 2+ (3-5) Smear Path Review D-Dimer O2 Saturation ABG pH at Pt Temp ABG pH (Temp Correct) ABG pCO2 at Pt Temp ABG pCO2 (Temp Corrct ABG pO2 at Pt Temp ABG pO2 (Temp Correct ABG HCO3 ABG Base Excess (Actual) VBG pH VBG pCO2 VBG pO2 VBG HCO3 VBG O2 Saturation VBG Base Excess Sodium 137 Potassium 4.8 Chloride 101 Carbon Dioxide 23 Anion Gap 18 BUN 73 H Creatinine 3.31 H Estim Creat Clear Calc 22.0 Estimated GFR 14 POC Glucose Random Glucose 98 Lactic Acid Lactic Acid Fup @ 2Hr Lactic Acid Fup @ 4Hr Calcium 7.6 L D Phosphorus Magnesium Total Bilirubin 1.3 H Direct Bilirubin AST 33 H D ALT 14 Alkaline Phosphatase 106 Ammonia Total Creatine Kinase Troponin I High Sens B-Natriuretic Peptide Total Protein 5.1 L D Albumin 2.4 L D Lipase Urine Color Urine Appearance Urine pH Ur Specific Emmett Urine Protein Urine Glucose (UA) Urine Ketones Urine Blood Urine Nitrite Ur Leukocyte Esterase Urine RBC Urine WBC Ur Squamous Epith Cells Urine Bacteria Urine Mucus Ur Random Sodium 77.0 Urine Creatinine 105.73 Urine Opiates Screen Urine Fentanyl Screen Ur Barbiturates Screen Ur Phencyclidine Scrn Ur Amphetamines Screen U Benzodiazepines Scrn Urine Cocaine Screen U Marijuana (THC) Screen COVID-19 (SUZIE) COVID-19 Clin Com Hep Bs Antigen Hep Bs Antibody Hep B Core Total Ab Hepatitis C Ab (EIA) Blood Type Antibody Screen 03/28/21 03/28/21 03/28/21 18:53 21:08 21:08 WBC RBC Hgb Hct MCV MCH MCHC RDW Plt Count MPV Immature Gran % (Auto) Neut % (Auto) Lymph % (Auto) Christian % (Auto) Eos % (Auto) Baso % (Auto) Lymph # (Auto) Christian # (Auto) Eos # (Auto) Baso # (Auto) Abs Immat Gran (auto) Absolute Neuts (auto) Absolute Nucleated RBC Nucleated RBC % (auto) Neutrophils % (Manual) Band Neutrophils % Lymphocytes % (Manual) Monocytes % (Manual) Eosinophils % (Manual) Metamyelocytes % Abs Neuts (Manual) Lymphocytes # (Manual) Monocytes # (Manual) Eosinophils # (Manual) Metamyelocytes # Toxic Vacuolation Dohle Bodies Platelet Estimate Plt Morphology Comment RBC Morphology Hypochromasia Tear Drop Cells Ovalocytes [place] Cells Acanthocytes (Spur) Smear Path Review D-Dimer O2 Saturation ABG pH at Pt Temp ABG pH (Temp Correct) ABG pCO2 at Pt Temp ABG pCO2 (Temp Corrct ABG pO2 at Pt Temp ABG pO2 (Temp Correct ABG HCO3 ABG Base Excess (Actual) VBG pH VBG pCO2 VBG pO2 VBG HCO3 VBG O2 Saturation VBG Base Excess Sodium Potassium Chloride Carbon Dioxide Anion Gap BUN Creatinine Estim Creat Clear Calc Estimated GFR POC Glucose TNP Random Glucose Lactic Acid 4.6 H* Lactic Acid Fup @ 2Hr 3.3 H* Lactic Acid Fup @ 4Hr Calcium Phosphorus Magnesium Total Bilirubin Direct Bilirubin AST ALT Alkaline Phosphatase Ammonia Total Creatine Kinase Troponin I High Sens B-Natriuretic Peptide Total Protein Albumin Lipase Urine Color Urine Appearance Urine pH Ur Specific Emmett Urine Protein Urine Glucose (UA) Urine Ketones Urine Blood Urine Nitrite Ur Leukocyte Esterase Urine RBC Urine WBC Ur Squamous Epith Cells Urine Bacteria Urine Mucus Ur Random Sodium Urine Creatinine Urine Opiates Screen Urine Fentanyl Screen Ur Barbiturates Screen Ur Phencyclidine Scrn Ur Amphetamines Screen U Benzodiazepines Scrn Urine Cocaine Screen U Marijuana (THC) Screen COVID-19 (SUZIE) COVID-19 Clin Com Hep Bs Antigen Hep Bs Antibody Hep B Core Total Ab Hepatitis C Ab (EIA) Blood Type Antibody Screen 03/28/21 03/29/21 03/29/21 23:18 05:20 05:20 WBC 11.0 H RBC 3.72 L Hgb 10.7 L Hct 33.7 L MCV 90.6 MCH 28.8 MCHC 31.8 RDW 16.7 H Plt Count 220 MPV 10.6 Immature Gran % (Auto) Cancelled Neut % (Auto) Cancelled Lymph % (Auto) Cancelled Christian % (Auto) Cancelled Eos % (Auto) Cancelled Baso % (Auto) Cancelled Lymph # (Auto) Cancelled Christian # (Auto) Cancelled Eos # (Auto) Cancelled Baso # (Auto) Cancelled Abs Immat Gran (auto) Cancelled Absolute Neuts (auto) Cancelled Absolute Nucleated RBC 0.000 Nucleated RBC % (auto) 0.0 Neutrophils % (Manual) 59 Band Neutrophils % 30 H Lymphocytes % (Manual) 3 L Monocytes % (Manual) 7 Eosinophils % (Manual) 1 Metamyelocytes % Abs Neuts (Manual) 9.8 H Lymphocytes # (Manual) 0.3 L Monocytes # (Manual) 0.8 Eosinophils # (Manual) 0.1 Metamyelocytes # Toxic Vacuolation PRESENT Dohle Bodies Platelet Estimate NORMAL Plt Morphology Comment NORMAL RBC Morphology NOTED Hypochromasia Tear Drop Cells Ovalocytes [place] Cells 2+ (3-5) Acanthocytes (Spur) Smear Path Review D-Dimer O2 Saturation ABG pH at Pt Temp ABG pH (Temp Correct) ABG pCO2 at Pt Temp ABG pCO2 (Temp Corrct ABG pO2 at Pt Temp ABG pO2 (Temp Correct ABG HCO3 ABG Base Excess (Actual) VBG pH VBG pCO2 VBG pO2 VBG HCO3 VBG O2 Saturation VBG Base Excess Sodium 136 Potassium 4.8 Chloride 101 Carbon Dioxide 22 Anion Gap 18 BUN 76 H Creatinine 3.26 H Estim Creat Clear Calc 22.4 Estimated GFR 14 POC Glucose Random Glucose 108 Lactic Acid Lactic Acid Fup @ 2Hr Lactic Acid Fup @ 4Hr 2.3 H* Calcium 7.9 L Phosphorus 6.5 H Magnesium 3.4 H Total Bilirubin Direct Bilirubin AST ALT Alkaline Phosphatase Ammonia Total Creatine Kinase Troponin I High Sens B-Natriuretic Peptide Total Protein Albumin 2.8 L Lipase Urine Color Urine Appearance Urine pH Ur Specific Emmett Urine Protein Urine Glucose (UA) Urine Ketones Urine Blood Urine Nitrite Ur Leukocyte Esterase Urine RBC Urine WBC Ur Squamous Epith Cells Urine Bacteria Urine Mucus Ur Random Sodium Urine Creatinine Urine Opiates Screen Urine Fentanyl Screen Ur Barbiturates Screen Ur Phencyclidine Scrn Ur Amphetamines Screen U Benzodiazepines Scrn Urine Cocaine Screen U Marijuana (THC) Screen COVID-19 (SUZIE) COVID-19 Clin Com Hep Bs Antigen Hep Bs Antibody Hep B Core Total Ab Hepatitis C Ab (EIA) Blood Type Antibody Screen 03/29/21 03/30/21 03/30/21 05:28 06:18 06:18 WBC 8.9 RBC 4.12 L Hgb 11.8 L Hct 36.8 L MCV 89.3 MCH 28.6 MCHC 32.1 RDW 16.7 H Plt Count 209 MPV 10.5 Immature Gran % (Auto) Cancelled Neut % (Auto) Cancelled Lymph % (Auto) Cancelled Christian % (Auto) Cancelled Eos % (Auto) Cancelled Baso % (Auto) Cancelled Lymph # (Auto) Cancelled Christian # (Auto) Cancelled Eos # (Auto) Cancelled Baso # (Auto) Cancelled Abs Immat Gran (auto) Cancelled Absolute Neuts (auto) Cancelled Absolute Nucleated RBC 0.000 Nucleated RBC % (auto) 0.0 Neutrophils % (Manual) 74 H Band Neutrophils % 19 H Lymphocytes % (Manual) 2 L Monocytes % (Manual) 4 Eosinophils % (Manual) Metamyelocytes % 1 Abs Neuts (Manual) 8.3 H Lymphocytes # (Manual) 0.2 L Monocytes # (Manual) 0.4 Eosinophils # (Manual) Metamyelocytes # 0.1 Toxic Vacuolation PRESENT Dohle Bodies PRESENT Platelet Estimate NORMAL Plt Morphology Comment NORMAL RBC Morphology NOTED Hypochromasia Tear Drop Cells Ovalocytes [place] Cells Acanthocytes (Spur) 2+ (3-5) Smear Path Review D-Dimer O2 Saturation ABG pH at Pt Temp ABG pH (Temp Correct) ABG pCO2 at Pt Temp ABG pCO2 (Temp Corrct ABG pO2 at Pt Temp ABG pO2 (Temp Correct ABG HCO3 ABG Base Excess (Actual) VBG pH 7.40 VBG pCO2 34 VBG pO2 53 VBG HCO3 22 VBG O2 Saturation 82.0 VBG Base Excess -1.9 Sodium 140 Potassium 4.9 Chloride 100 Carbon Dioxide 21 L Anion Gap 24 H BUN 96 H* D Creatinine 3.54 H Estim Creat Clear Calc 36.0 Estimated GFR 13 POC Glucose Random Glucose 86 Lactic Acid Lactic Acid Fup @ 2Hr Lactic Acid Fup @ 4Hr Calcium 8.3 L Phosphorus 6.8 H Magnesium 3.6 H* Total Bilirubin 1.0 Direct Bilirubin AST 161 H ALT 33 H Alkaline Phosphatase 99 Ammonia Total Creatine Kinase 4637 H Troponin I High Sens B-Natriuretic Peptide Total Protein Albumin 3.1 L Lipase Urine Color Urine Appearance Urine pH Ur Specific Emmett Urine Protein Urine Glucose (UA) Urine Ketones Urine Blood Urine Nitrite Ur Leukocyte Esterase Urine RBC Urine WBC Ur Squamous Epith Cells Urine Bacteria Urine Mucus Ur Random Sodium Urine Creatinine Urine Opiates Screen Urine Fentanyl Screen Ur Barbiturates Screen Ur Phencyclidine Scrn Ur Amphetamines Screen U Benzodiazepines Scrn Urine Cocaine Screen U Marijuana (THC) Screen COVID-19 (SUZIE) COVID-19 Clin Com Hep Bs Antigen Hep Bs Antibody Hep B Core Total Ab Hepatitis C Ab (EIA) Blood Type Antibody Screen 03/30/21 03/30/21 03/30/21 06:21 09:38 09:50 WBC RBC Hgb Hct MCV MCH MCHC RDW Plt Count MPV Immature Gran % (Auto) Neut % (Auto) Lymph % (Auto) Christian % (Auto) Eos % (Auto) Baso % (Auto) Lymph # (Auto) Christian # (Auto) Eos # (Auto) Baso # (Auto) Abs Immat Gran (auto) Absolute Neuts (auto) Absolute Nucleated RBC Nucleated RBC % (auto) Neutrophils % (Manual) Band Neutrophils % Lymphocytes % (Manual) Monocytes % (Manual) Eosinophils % (Manual) Metamyelocytes % Abs Neuts (Manual) Lymphocytes # (Manual) Monocytes # (Manual) Eosinophils # (Manual) Metamyelocytes # Toxic Vacuolation Dohle Bodies Platelet Estimate Plt Morphology Comment RBC Morphology Hypochromasia Tear Drop Cells Ovalocytes Chichi Cells Acanthocytes (Spur) Smear Path Review D-Dimer O2 Saturation ABG pH at Pt Temp ABG pH (Temp Correct) ABG pCO2 at Pt Temp ABG pCO2 (Temp Corrct ABG pO2 at Pt Temp ABG pO2 (Temp Correct ABG HCO3 ABG Base Excess (Actual) VBG pH 7.39 7.35 VBG pCO2 38 30 VBG pO2 61 86 VBG HCO3 23 17 L VBG O2 Saturation 85.0 94.0 VBG Base Excess -0.7 -6.9 Sodium Potassium Chloride Carbon Dioxide Anion Gap BUN Creatinine Estim Creat Clear Calc Estimated GFR POC Glucose Random Glucose Lactic Acid 2.4 H* Lactic Acid Fup @ 2Hr Lactic Acid Fup @ 4Hr Calcium Phosphorus Magnesium Total Bilirubin Direct Bilirubin AST ALT Alkaline Phosphatase Ammonia Total Creatine Kinase Troponin I High Sens B-Natriuretic Peptide Total Protein Albumin Lipase Urine Color Urine Appearance Urine pH Ur Specific Emmett Urine Protein Urine Glucose (UA) Urine Ketones Urine Blood Urine Nitrite Ur Leukocyte Esterase Urine RBC Urine WBC Ur Squamous Epith Cells Urine Bacteria Urine Mucus Ur Random Sodium Urine Creatinine Urine Opiates Screen Urine Fentanyl Screen Ur Barbiturates Screen Ur Phencyclidine Scrn Ur Amphetamines Screen U Benzodiazepines Scrn Urine Cocaine Screen U Marijuana (THC) Screen COVID-19 (SUZIE) COVID-19 Clin Com Hep Bs Antigen Hep Bs Antibody Hep B Core Total Ab Hepatitis C Ab (EIA) Blood Type Antibody Screen 03/30/21 03/30/21 03/30/21 11:21 11:21 11:48 WBC RBC Hgb Hct MCV MCH MCHC RDW Plt Count MPV Immature Gran % (Auto) Neut % (Auto) Lymph % (Auto) Christian % (Auto) Eos % (Auto) Baso % (Auto) Lymph # (Auto) Christian # (Auto) Eos # (Auto) Baso # (Auto) Abs Immat Gran (auto) Absolute Neuts (auto) Absolute Nucleated RBC Nucleated RBC % (auto) Neutrophils % (Manual) Band Neutrophils % Lymphocytes % (Manual) Monocytes % (Manual) Eosinophils % (Manual) Metamyelocytes % Abs Neuts (Manual) Lymphocytes # (Manual) Monocytes # (Manual) Eosinophils # (Manual) Metamyelocytes # Toxic Vacuolation Dohle Bodies Platelet Estimate Plt Morphology Comment RBC Morphology Hypochromasia Tear Drop Cells Ovalocytes [place] Cells Acanthocytes (Spur) Smear Path Review D-Dimer O2 Saturation ABG pH at Pt Temp ABG pH (Temp Correct) ABG pCO2 at Pt Temp ABG pCO2 (Temp Corrct ABG pO2 at Pt Temp ABG pO2 (Temp Correct ABG HCO3 ABG Base Excess (Actual) VBG pH VBG pCO2 VBG pO2 VBG HCO3 VBG O2 Saturation VBG Base Excess Sodium Potassium Chloride Carbon Dioxide Anion Gap BUN Creatinine Estim Creat Clear Calc Estimated GFR POC Glucose Random Glucose Lactic Acid Lactic Acid Fup @ 2Hr 3.3 H* Lactic Acid Fup @ 4Hr Calcium Phosphorus Magnesium Total Bilirubin Direct Bilirubin AST ALT Alkaline Phosphatase Ammonia 37 Total Creatine Kinase Troponin I High Sens B-Natriuretic Peptide Total Protein Albumin Lipase Urine Color Urine Appearance Urine pH Ur Specific Emmett Urine Protein Urine Glucose (UA) Urine Ketones Urine Blood Urine Nitrite Ur Leukocyte Esterase Urine RBC Urine WBC Ur Squamous Epith Cells Urine Bacteria Urine Mucus Ur Random Sodium Urine Creatinine Urine Opiates Screen Urine Fentanyl Screen Ur Barbiturates Screen Ur Phencyclidine Scrn Ur Amphetamines Screen U Benzodiazepines Scrn Urine Cocaine Screen U Marijuana (THC) Screen COVID-19 (SUZIE) COVID-19 Clin Com Hep Bs Antigen Negative Hep Bs Antibody NONREACTIVE Hep B Core Total Ab Nonreactive Hepatitis C Ab (EIA) Nonreactive Blood Type Antibody Screen 03/30/21 03/30/21 03/30/21 13:48 14:12 18:15 WBC RBC Hgb Hct MCV MCH MCHC RDW Plt Count MPV Immature Gran % (Auto) Neut % (Auto) Lymph % (Auto) Christian % (Auto) Eos % (Auto) Baso % (Auto) Lymph # (Auto) Christian # (Auto) Eos # (Auto) Baso # (Auto) Abs Immat Gran (auto) Absolute Neuts (auto) Absolute Nucleated RBC Nucleated RBC % (auto) Neutrophils % (Manual) Band Neutrophils % Lymphocytes % (Manual) Monocytes % (Manual) Eosinophils % (Manual) Metamyelocytes % Abs Neuts (Manual) Lymphocytes # (Manual) Monocytes # (Manual) Eosinophils # (Manual) Metamyelocytes # Toxic Vacuolation Dohle Bodies Platelet Estimate Plt Morphology Comment RBC Morphology Hypochromasia Tear Drop Cells Ovalocytes [place] Cells Acanthocytes (Spur) Smear Path Review D-Dimer O2 Saturation ABG pH at Pt Temp ABG pH (Temp Correct) ABG pCO2 at Pt Temp ABG pCO2 (Temp Corrct ABG pO2 at Pt Temp ABG pO2 (Temp Correct ABG HCO3 ABG Base Excess (Actual) VBG pH VBG pCO2 VBG pO2 VBG HCO3 VBG O2 Saturation VBG Base Excess Sodium 138 141 Potassium 4.7 4.7 Chloride 99 100 Carbon Dioxide 19 L 18 L Anion Gap 25 H 28 H BUN 100 H* 104 H* Creatinine 4.07 H* 4.47 H* Estim Creat Clear Calc 17.7 16.1 Estimated GFR 11 10 POC Glucose Random Glucose 82 61 Lactic Acid Lactic Acid Fup @ 2Hr Lactic Acid Fup @ 4Hr 3.1 H* Calcium 8.4 8.2 L Phosphorus Magnesium Total Bilirubin Direct Bilirubin AST ALT Alkaline Phosphatase Ammonia Total Creatine Kinase 3159 H Troponin I High Sens B-Natriuretic Peptide Total Protein Albumin Lipase Urine Color Urine Appearance Urine pH Ur Specific Emmett Urine Protein Urine Glucose (UA) Urine Ketones Urine Blood Urine Nitrite Ur Leukocyte Esterase Urine RBC Urine WBC Ur Squamous Epith Cells Urine Bacteria Urine Mucus Ur Random Sodium Urine Creatinine Urine Opiates Screen Urine Fentanyl Screen Ur Barbiturates Screen Ur Phencyclidine Scrn Ur Amphetamines Screen U Benzodiazepines Scrn Urine Cocaine Screen U Marijuana (THC) Screen COVID-19 (SUZIE) COVID-19 Clin Com Hep Bs Antigen Hep Bs Antibody Hep B Core Total Ab Hepatitis C Ab (EIA) Blood Type Antibody Screen 03/30/21 03/30/21 03/30/21 18:19 22:12 22:35 WBC RBC Hgb Hct MCV MCH MCHC RDW Plt Count MPV Immature Gran % (Auto) Neut % (Auto) Lymph % (Auto) Christian % (Auto) Eos % (Auto) Baso % (Auto) Lymph # (Auto) Christian # (Auto) Eos # (Auto) Baso # (Auto) Abs Immat Gran (auto) Absolute Neuts (auto) Absolute Nucleated RBC Nucleated RBC % (auto) Neutrophils % (Manual) Band Neutrophils % Lymphocytes % (Manual) Monocytes % (Manual) Eosinophils % (Manual) Metamyelocytes % Abs Neuts (Manual) Lymphocytes # (Manual) Monocytes # (Manual) Eosinophils # (Manual) Metamyelocytes # Toxic Vacuolation Dohle Bodies Platelet Estimate Plt Morphology Comment RBC Morphology Hypochromasia Tear Drop Cells Ovalocytes [place] Cells Acanthocytes (Spur) Smear Path Review D-Dimer O2 Saturation 96.0 ABG pH at Pt Temp 7.36 ABG pH (Temp Correct) 7.36 ABG pCO2 at Pt Temp 14 L* ABG pCO2 (Temp Corrct 15 L* ABG pO2 at Pt Temp 132 H ABG pO2 (Temp Correct 134 H ABG HCO3 8 L ABG Base Excess (Actual) TNP VBG pH 7.35 VBG pCO2 36 VBG pO2 51 VBG HCO3 20 L VBG O2 Saturation 75.0 VBG Base Excess TNP Sodium Potassium Chloride Carbon Dioxide Anion Gap BUN Creatinine Estim Creat Clear Calc Estimated GFR POC Glucose Random Glucose Lactic Acid Lactic Acid Fup @ 2Hr Lactic Acid Fup @ 4Hr Calcium Phosphorus Magnesium Total Bilirubin Direct Bilirubin AST ALT Alkaline Phosphatase Ammonia Total Creatine Kinase Troponin I High Sens 150.2 H* D B-Natriuretic Peptide Total Protein Albumin Lipase Urine Color Urine Appearance Urine pH Ur Specific Emmett Urine Protein Urine Glucose (UA) Urine Ketones Urine Blood Urine Nitrite Ur Leukocyte Esterase Urine RBC Urine WBC Ur Squamous Epith Cells Urine Bacteria Urine Mucus Ur Random Sodium Urine Creatinine Urine Opiates Screen Urine Fentanyl Screen Ur Barbiturates Screen Ur Phencyclidine Scrn Ur Amphetamines Screen U Benzodiazepines Scrn Urine Cocaine Screen U Marijuana (THC) Screen COVID-19 (SUZIE) COVID-19 Clin Com Hep Bs Antigen Hep Bs Antibody Hep B Core Total Ab Hepatitis C Ab (EIA) Blood Type Antibody Screen 03/30/21 03/30/21 03/31/21 23:00 23:00 01:07 WBC RBC Hgb Hct MCV MCH MCHC RDW Plt Count MPV Immature Gran % (Auto) Neut % (Auto) Lymph % (Auto) Christian % (Auto) Eos % (Auto) Baso % (Auto) Lymph # (Auto) Christian # (Auto) Eos # (Auto) Baso # (Auto) Abs Immat Gran (auto) Absolute Neuts (auto) Absolute Nucleated RBC Nucleated RBC % (auto) Neutrophils % (Manual) Band Neutrophils % Lymphocytes % (Manual) Monocytes % (Manual) Eosinophils % (Manual) Metamyelocytes % Abs Neuts (Manual) Lymphocytes # (Manual) Monocytes # (Manual) Eosinophils # (Manual) Metamyelocytes # Toxic Vacuolation Dohle Bodies Platelet Estimate Plt Morphology Comment RBC Morphology Hypochromasia Tear Drop Cells Ovalocytes [place] Cells Acanthocytes (Spur) Smear Path Review D-Dimer O2 Saturation ABG pH at Pt Temp ABG pH (Temp Correct) ABG pCO2 at Pt Temp ABG pCO2 (Temp Corrct ABG pO2 at Pt Temp ABG pO2 (Temp Correct ABG HCO3 ABG Base Excess (Actual) VBG pH VBG pCO2 VBG pO2 VBG HCO3 VBG O2 Saturation VBG Base Excess Sodium 149 H Potassium 5.3 H Chloride 101 Carbon Dioxide 19 L Anion Gap 34 H BUN 102 H* Creatinine 4.68 H* Estim Creat Clear Calc 15.4 Estimated GFR 9 POC Glucose Random Glucose 45 L* Lactic Acid 11.5 H* Lactic Acid Fup @ 2Hr Lactic Acid Fup @ 4Hr Calcium 7.8 L Phosphorus Magnesium Total Bilirubin 1.2 H Direct Bilirubin AST 147 H ALT 42 H Alkaline Phosphatase 86 Ammonia Total Creatine Kinase Troponin I High Sens B-Natriuretic Peptide Total Protein 5.2 L Albumin 3.4 L Lipase Urine Color Urine Appearance Urine pH Ur Specific Emmett Urine Protein Urine Glucose (UA) Urine Ketones Urine Blood Urine Nitrite Ur Leukocyte Esterase Urine RBC Urine WBC Ur Squamous Epith Cells Urine Bacteria Urine Mucus Ur Random Sodium Urine Creatinine Urine Opiates Screen Urine Fentanyl Screen Ur Barbiturates Screen Ur Phencyclidine Scrn Ur Amphetamines Screen U Benzodiazepines Scrn Urine Cocaine Screen U Marijuana (THC) Screen COVID-19 (SUZIE) COVID-19 Clin Com Hep Bs Antigen Hep Bs Antibody Hep B Core Total Ab Hepatitis C Ab (EIA) Blood Type O Negative Antibody Screen NEGATIVE 03/31/21 01:10 WBC RBC Hgb Hct MCV MCH MCHC RDW Plt Count MPV Immature Gran % (Auto) Neut % (Auto) Lymph % (Auto) Christian % (Auto) Eos % (Auto) Baso % (Auto) Lymph # (Auto) Christian # (Auto) Eos # (Auto) Baso # (Auto) Abs Immat Gran (auto) Absolute Neuts (auto) Absolute Nucleated RBC Nucleated RBC % (auto) Neutrophils % (Manual) Band Neutrophils % Lymphocytes % (Manual) Monocytes % (Manual) Eosinophils % (Manual) Metamyelocytes % Abs Neuts (Manual) Lymphocytes # (Manual) Monocytes # (Manual) Eosinophils # (Manual) Metamyelocytes # Toxic Vacuolation Dohle Bodies Platelet Estimate Plt Morphology Comment RBC Morphology Hypochromasia Tear Drop Cells Ovalocytes [place] Cells Acanthocytes (Spur) Smear Path Review D-Dimer O2 Saturation ABG pH at Pt Temp ABG pH (Temp Correct) ABG pCO2 at Pt Temp ABG pCO2 (Temp Corrct ABG pO2 at Pt Temp ABG pO2 (Temp Correct ABG HCO3 ABG Base Excess (Actual) VBG pH VBG pCO2 VBG pO2 VBG HCO3 VBG O2 Saturation VBG Base Excess Sodium Potassium Chloride Carbon Dioxide Anion Gap BUN Creatinine Estim Creat Clear Calc Estimated GFR POC Glucose Random Glucose Lactic Acid Lactic Acid Fup @ 2Hr 16.1 H* Lactic Acid Fup @ 4Hr Calcium Phosphorus Magnesium Total Bilirubin Direct Bilirubin AST ALT Alkaline Phosphatase Ammonia Total Creatine Kinase Troponin I High Sens B-Natriuretic Peptide Total Protein Albumin Lipase Urine Color Urine Appearance Urine pH Ur Specific [place] Urine Protein Urine Glucose (UA) Urine Ketones Urine Blood Urine Nitrite Ur Leukocyte Esterase Urine RBC Urine WBC Ur Squamous Epith Cells Urine Bacteria Urine Mucus Ur Random Sodium Urine Creatinine Urine Opiates Screen Urine Fentanyl Screen Ur Barbiturates Screen Ur Phencyclidine Scrn Ur Amphetamines Screen U Benzodiazepines Scrn Urine Cocaine Screen U Marijuana (THC) Screen COVID-19 (SUZIE) COVID-19 Clin Com Hep Bs Antigen Hep Bs Antibody Hep B Core Total Ab Hepatitis C Ab (EIA) Blood Type Antibody Screen
[2021-03-31] MEDS: Amiodarone HCL 900 MG in 0.9 % Sodium Chloride 500 ML 34.53 MG IVCONT (02:43)
[2021-03-31 03:13] LABS: Reflex Lactate? 2 Y
[2021-03-31] MEDS: Albumin Human 25 % 100 ML IV (03:42)
--- NOTE | 2021-03-31 04:37 | PM.EVENT ---
Event Note Date of Service: 03/31/21 Event Note: At 4:00 a.m. nurse personally informed me of patient having a V-tach rhythm with heart rate of 120-200 there was no detectable blood pressure, amiodarone 300 mg IV x1 was pushed, subsequently it appeared to be VF either sister said, magnesium 2 mg IV x1 followed by 2 amps of bicarb, centrally these changed to a junctional rhythm in the 110s to 120s; and there was a femoral pulse by Doppler. The pressure of the time was 1:40 a.m. 8/122 with heart rate of 79 and total of 35 respiratory rate of 18, subsequently patient continued to have a junctional rhythm. 4:20 a.m. she went into PEA code blue was activated although this was suspected it happened, compressions were started, blood sugar checked, it was 10 and a PEEP of D50 was given in epinephrine x1, 422 pulse checked and was nondetectable, compressions were resumed another epinephrine was given. Calcium chloride 2 mg IV x1. In the meantime I was able to talk to patient's partner SONYA who was informed of the situation and given the clinical scenario he decided that we should do 1 more round of CPR used was nothing else to do than simply withdrawal care. At 4:24 a.m., ongoing PA, no pulse, compressions resumed for a minute and with finally stop the 425 am. At this time, there was no electrical activity, no apical heart sounds, corneal reflex are absent. The patient was pronounced. Family informed. Total critical time 30 minutes. For additional details please see the resuscitation report. Case was discussed in detail with Dr. Gabriel He is aware of all the above .
[2021-03-31 04:49] LABS: ~Lactic Acid-LAB USE ONLY 22.3 mmol/L (0.5-2.0)
--- NOTE | 2021-03-31 05:00 | P.DS_ITS ---
DS: Providers Provider Date of Service: 03/26/21 <RONI De Luna - Last Filed: 03/31/21 19:50> Date of admission: 03/27/21 03:29 <RONI De Luna - Last Filed: 03/31/21 19:50> Date of discharge: 03/31/21 <RONI De Luna - Last Filed: 03/31/21 19:50> Primary care physician: Caryn Bishop MD <RONI De Luna - Last Filed: 03/31/21 19:50> Consults: 03/28/21 15:11 Consult to Nephrology Routine Consulting Provider: Chris Glaser Reason for consultation: marisa 03/30/21 14:49 Consult to General Surgery Routine Consulting Provider: [facility] General Surgeons Reason for consultation: ? bowel ischemia Has provider been notified: No <RONI De Luna - Last Filed: 03/31/21 19:50> Attending physician on discharge: Wing Gabriel <RONI De Luna - Last Filed: 03/31/21 19:50> Discharging clinician: Ankur Gutierrez <RONI De Luna - Last Filed: 03/31/21 19:50> DS: Diagnosis Discharge Diagnosis (1) Ileus: Status: Acute <RONI De Luna - Last Filed: 03/31/21 19:50> (2) Pulmonary aspiration: Status: Acute <RONI De Luna - Last Filed: 03/31/21 19:50> (3) Gram-negative bacteremia: Status: Acute <RONI De Luna - Last Filed: 03/31/21 19:50> (4) Hypotension: Status: Acute <RONI De Luna - Last Filed: 03/31/21 19:50> (5) Acute renal failure: Status: Acute <RONI De Luna - Last Filed: 03/31/21 19:50> DS: Summary Hospital Course Hospital Course: Admitting/discharge diagnosis 1.? Cardiac arrest 2.? Ischemic bowel 3.? Septic shock and Gram-negative bacteremia 4.? Aspiration pneumonitis 5.? Acute respiratory failure setting of aspiration pneumonia 6.? Metabolic acidosis 7.? Lactic acidosis multifactorial 8.? Acute renal failure 9.? Urinary tract infection 10.?? Metabolic encephalopathy 11. Recurrent hypoglycemic episodes due to bacteremia Comorbidities 1.? Hypertension 2.? Lymphedema 3.? Right hip pain 4.? Constipation 5.? Postmenopausal 6.? Multinodular thyroid 7.? Rectal bleeding 8.? Angiomyolipoma 9.? Renal cyst 10.?? Ascending aortic dilatation 11.?? GERD 12.?? Morbid obesity 13.?? Asthma 14.?? Interstitial lung disease 15.?? Rheumatoid arthritis HPI/hospital course; Patient is 70-year-old female with above-mentioned comorbidities who was admitted on 03/26/2021 after being seen in the emergency room with complaints of nausea vomiting abdominal pain.? It was reported the patient develops symptoms shortly after eating dinner that night patient complains of diffuse abdominal pain. In the ER the patient was worked up [place] [address] H and H of 14 and 45 respectively otherwise laboratories were unremarkable without electrolyte abnormality or renal failure.? A CTA of the chest and abdomen and pelvis at that time showed stable aortic dilation without any changes or evidence of ischemia.? A large fat containing hernia was mentioned and sigmoid diverticulosis. Patient has been noted to have hypertensive urgency treated with IV labetalol and patient was admitted to the hospitalist service due to ongoing pain but within a day the patient continued to be lethargic and became hypotensive. She was then transferred to the ICU, she was given Narcan with some improvement as the patient had been receiving opiates for pain. ?Patient was started on cefepime. ?She has been placed on Narcan drip and subsequently transferred to [facility] [place] but her clinical situation decompensated again becoming hypotensive lethargic, tachypneic and it was thought that the patient had aspirated while being placed on CPAP, the patient was transferred back to the ICU requiring pressors and amiodarone for rate control. Upon NG suction after transfer to ICU patient had feculent gastric content of about a 1200 cc aspirated from her stomach, OG tube was placed. ?The workup done revealed a lactic acid level of 3.3 (from 2.4) after few hours it had come down to 3.1, white count was not elevated however her creatinine jumped to 4.0 and patient became completely anuric. Venous gas was normal.? Review of microbiology revealed Gram-negative rods in the blood culture. ?Repeat CT revealed no obstruction new bowel ileus with ascites and possible bowel ischemia without pneumatosis.? New bilateral lower lobe consolidations likely of pneumonia. Given the above the general surgeon was consulted on the case and she kindly saw the patient but at time no surgical intervention was granted. Around 9:00 pm 03/30/2021, given the patient's ongoing deterioration patient was intubated successfully. She did continue to require increase administration of vasopressors. Is worth noting that copious amounts of fecal like material versus bile was aspirated from the patient's mouth during intubation time.? Subsequently she developed what appeared to be SVT versus AFib while on an amiodarone drip; digoxin 0.5 mg IV x1 was given as she had low BP and no other agents could be given.? A follow-up ABG shows significant metabolic acidosis and low bicarb, 2 amps of sodium bicarb were given.?I discussed the patients critical scenario with the general surgeon Dr. Brody. After reviewing the VBG, lactic acid was ordered and it came back elevated at 11 from 3.5. At this time General surgery was re-consulted and decided to take the patient to the OR for the family members had initially decided this was what they wanted to do. Type and cross, two more amps of bicarb and calcium gluconate were given on-call to the OR. After the OR team was called and the surgeon commanding officer traffic division talked to family for consents to be signed, the family changed their mind and decided that no surgery was to be done at this point particularly given the concern that the patient may arrest on the table. At 4 am unfortunately the eminent happened the patient developed V-tach and subsequently PEA and after running a short ACLS protocol CODE and contacting the family, ( please see CODE event note for details ) all efforts were stopped at: 4:25 a.m. the patient was pronounced . Case was discussed in detail with Dr. Harvey He is aware of all the above. <RONI De Luna - Last Filed: 03/31/21 19:50> Time Spent with Patient Time attestation: Total time spent providing and/or coordinating discharge services: <RONI De Luna - Last Filed: 03/31/21 19:50> Discharge coordination time: Greater than 30 minutes <RONI De Luna - Last Filed: 03/31/21 19:50> Quality: Stroke Does the patient have a stroke diagnosis?: No <RONI De Luna - Last Filed: 03/31/21 19:50> Physical Exam Vital Signs: Vital Signs: Last Vital Signs Temp 98.1 F 03/31/21 04:00 Pulse 51 03/31/21 04:00 Resp 17 03/31/21 04:00 BP 101/48 L 03/31/21 04:00 Pulse Ox 97 03/31/21 04:00 Body Mass Index 50.3 <RONI De Luna - Last Filed: 03/31/21 19:50> DS: Data Data Completed and Pending Labs on day of discharge: Laboratory Results - last 24 hr 03/30/21 03/30/21 03/30/21 06:18 06:18 06:21 WBC 8.9 RBC 4.12 L Hgb 11.8 L Hct 36.8 L MCV 89.3 MCH 28.6 MCHC 32.1 RDW 16.7 H Plt Count 209 MPV 10.5 Immature Gran % (Auto) Cancelled Neut % (Auto) Cancelled Lymph % (Auto) Cancelled [place] % (Auto) Cancelled Eos % (Auto) Cancelled Baso % (Auto) Cancelled Lymph # (Auto) Cancelled [place] # (Auto) Cancelled Eos # (Auto) Cancelled Baso # (Auto) Cancelled Abs Immat Gran (auto) Cancelled Absolute Neuts (auto) Cancelled Absolute Nucleated RBC 0.000 Nucleated RBC % (auto) 0.0 Neutrophils % (Manual) 74 H Band Neutrophils % 19 H Lymphocytes % (Manual) 2 L Monocytes % (Manual) 4 Metamyelocytes % 1 Abs Neuts (Manual) 8.3 H Lymphocytes # (Manual) 0.2 L Monocytes # (Manual) 0.4 Metamyelocytes # 0.1 Toxic Vacuolation PRESENT Dohle Bodies PRESENT Platelet Estimate NORMAL Plt Morphology Comment NORMAL RBC Morphology NOTED Acanthocytes (Spur) 2+ (3-5) O2 Saturation ABG pH at Pt Temp ABG pH (Temp Correct) ABG pCO2 at Pt Temp ABG pCO2 (Temp Corrct ABG pO2 at Pt Temp ABG pO2 (Temp Correct ABG HCO3 ABG Base Excess (Actual) VBG pH 7.39 VBG pCO2 38 VBG pO2 61 VBG HCO3 23 VBG O2 Saturation 85.0 VBG Base Excess -0.7 Sodium 140 Potassium 4.9 Chloride 100 Carbon Dioxide 21 L Anion Gap 24 H BUN 96 H* D Creatinine 3.54 H Estim Creat Clear Calc 36.0 Estimated GFR 13 Random Glucose 86 Lactic Acid Lactic Acid Fup @ 2Hr Lactic Acid Fup @ 4Hr Calcium 8.3 L Phosphorus 6.8 H Magnesium 3.6 H* Total Bilirubin 1.0 AST 161 H ALT 33 H Alkaline Phosphatase 99 Ammonia Total Creatine Kinase 4637 H Troponin I High Sens Total Protein Albumin 3.1 L Hep Bs Antigen Hep Bs Antibody Hep B Core Total Ab Hepatitis C Ab (EIA) Blood Type Antibody Screen 03/30/21 03/30/21 03/30/21 09:38 09:50 11:21 WBC RBC Hgb Hct MCV MCH MCHC RDW Plt Count MPV Immature Gran % (Auto) Neut % (Auto) Lymph % (Auto) [place] % (Auto) Eos % (Auto) Baso % (Auto) Lymph # (Auto) [place] # (Auto) Eos # (Auto) Baso # (Auto) Abs Immat Gran (auto) Absolute Neuts (auto) Absolute Nucleated RBC Nucleated RBC % (auto) Neutrophils % (Manual) Band Neutrophils % Lymphocytes % (Manual) Monocytes % (Manual) Metamyelocytes % Abs Neuts (Manual) Lymphocytes # (Manual) Monocytes # (Manual) Metamyelocytes # Toxic Vacuolation Dohle Bodies Platelet Estimate Plt Morphology Comment RBC Morphology Acanthocytes (Spur) O2 Saturation ABG pH at Pt Temp ABG pH (Temp Correct) ABG pCO2 at Pt Temp ABG pCO2 (Temp Corrct ABG pO2 at Pt Temp ABG pO2 (Temp Correct ABG HCO3 ABG Base Excess (Actual) VBG pH 7.35 VBG pCO2 30 VBG pO2 86 VBG HCO3 17 L VBG O2 Saturation 94.0 VBG Base Excess -6.9 Sodium Potassium Chloride Carbon Dioxide Anion Gap BUN Creatinine Estim Creat Clear Calc Estimated GFR Random Glucose Lactic Acid 2.4 H* Lactic Acid Fup @ 2Hr Lactic Acid Fup @ 4Hr Calcium Phosphorus Magnesium Total Bilirubin AST ALT Alkaline Phosphatase Ammonia Total Creatine Kinase Troponin I High Sens Total Protein Albumin Hep Bs Antigen Negative Hep Bs Antibody NONREACTIVE Hep B Core Total Ab Nonreactive Hepatitis C Ab (EIA) Nonreactive Blood Type Antibody Screen 03/30/21 03/30/21 03/30/21 11:21 11:48 13:48 WBC RBC Hgb Hct MCV MCH MCHC RDW Plt Count MPV Immature Gran % (Auto) Neut % (Auto) Lymph % (Auto) [place] % (Auto) Eos % (Auto) Baso % (Auto) Lymph # (Auto) [place] # (Auto) Eos # (Auto) Baso # (Auto) Abs Immat Gran (auto) Absolute Neuts (auto) Absolute Nucleated RBC Nucleated RBC % (auto) Neutrophils % (Manual) Band Neutrophils % Lymphocytes % (Manual) Monocytes % (Manual) Metamyelocytes % Abs Neuts (Manual) Lymphocytes # (Manual) Monocytes # (Manual) Metamyelocytes # Toxic Vacuolation Dohle Bodies Platelet Estimate Plt Morphology Comment RBC Morphology Acanthocytes (Spur) O2 Saturation ABG pH at Pt Temp ABG pH (Temp Correct) ABG pCO2 at Pt Temp ABG pCO2 (Temp Corrct ABG pO2 at Pt Temp ABG pO2 (Temp Correct ABG HCO3 ABG Base Excess (Actual) VBG pH VBG pCO2 VBG pO2 VBG HCO3 VBG O2 Saturation VBG Base Excess Sodium 138 Potassium 4.7 Chloride 99 Carbon Dioxide 19 L Anion Gap 25 H BUN 100 H* Creatinine 4.07 H* Estim Creat Clear Calc 17.7 Estimated GFR 11 Random Glucose 82 Lactic Acid Lactic Acid Fup @ 2Hr 3.3 H* Lactic Acid Fup @ 4Hr Calcium 8.4 Phosphorus Magnesium Total Bilirubin AST ALT Alkaline Phosphatase Ammonia 37 Total Creatine Kinase Troponin I High Sens Total Protein Albumin Hep Bs Antigen Hep Bs Antibody Hep B Core Total Ab Hepatitis C Ab (EIA) Blood Type Antibody Screen 03/30/21 03/30/21 03/30/21 14:12 18:15 18:19 WBC RBC Hgb Hct MCV MCH MCHC RDW Plt Count MPV Immature Gran % (Auto) Neut % (Auto) Lymph % (Auto) [place] % (Auto) Eos % (Auto) Baso % (Auto) Lymph # (Auto) [place] # (Auto) Eos # (Auto) Baso # (Auto) Abs Immat Gran (auto) Absolute Neuts (auto) Absolute Nucleated RBC Nucleated RBC % (auto) Neutrophils % (Manual) Band Neutrophils % Lymphocytes % (Manual) Monocytes % (Manual) Metamyelocytes % Abs Neuts (Manual) Lymphocytes # (Manual) Monocytes # (Manual) Metamyelocytes # Toxic Vacuolation Dohle Bodies Platelet Estimate Plt Morphology Comment RBC Morphology Acanthocytes (Spur) O2 Saturation ABG pH at Pt Temp ABG pH (Temp Correct) ABG pCO2 at Pt Temp ABG pCO2 (Temp Corrct ABG pO2 at Pt Temp ABG pO2 (Temp Correct ABG HCO3 ABG Base Excess (Actual) VBG pH 7.35 VBG pCO2 36 VBG pO2 51 VBG HCO3 20 L VBG O2 Saturation 75.0 VBG Base Excess TNP Sodium 141 Potassium 4.7 Chloride 100 Carbon Dioxide 18 L Anion Gap 28 H BUN 104 H* Creatinine 4.47 H* Estim Creat Clear Calc 16.1 Estimated GFR 10 Random Glucose 61 Lactic Acid Lactic Acid Fup @ 2Hr Lactic Acid Fup @ 4Hr 3.1 H* Calcium 8.2 L Phosphorus Magnesium Total Bilirubin AST ALT Alkaline Phosphatase Ammonia Total Creatine Kinase 3159 H Troponin I High Sens Total Protein Albumin Hep Bs Antigen Hep Bs Antibody Hep B Core Total Ab Hepatitis C Ab (EIA) Blood Type Antibody Screen 03/30/21 03/30/21 03/30/21 22:12 22:35 23:00 WBC RBC Hgb Hct MCV MCH MCHC RDW Plt Count MPV Immature Gran % (Auto) Neut % (Auto) Lymph % (Auto) [place] % (Auto) Eos % (Auto) Baso % (Auto) Lymph # (Auto) [place] # (Auto) Eos # (Auto) Baso # (Auto) Abs Immat Gran (auto) Absolute Neuts (auto) Absolute Nucleated RBC Nucleated RBC % (auto) Neutrophils % (Manual) Band Neutrophils % Lymphocytes % (Manual) Monocytes % (Manual) Metamyelocytes % Abs Neuts (Manual) Lymphocytes # (Manual) Monocytes # (Manual) Metamyelocytes # Toxic Vacuolation Dohle Bodies Platelet Estimate Plt Morphology Comment RBC Morphology Acanthocytes (Spur) O2 Saturation 96.0 ABG pH at Pt Temp 7.36 ABG pH (Temp Correct) 7.36 ABG pCO2 at Pt Temp 14 L* ABG pCO2 (Temp Corrct 15 L* ABG pO2 at Pt Temp 132 H ABG pO2 (Temp Correct 134 H ABG HCO3 8 L ABG Base Excess (Actual) TNP VBG pH VBG pCO2 VBG pO2 VBG HCO3 VBG O2 Saturation VBG Base Excess Sodium 149 H Potassium 5.3 H Chloride 101 Carbon Dioxide 19 L Anion Gap 34 H BUN 102 H* Creatinine 4.68 H* Estim Creat Clear Calc 15.4 Estimated GFR 9 Random Glucose 45 L* Lactic Acid Lactic Acid Fup @ 2Hr Lactic Acid Fup @ 4Hr Calcium 7.8 L Phosphorus Magnesium Total Bilirubin 1.2 H AST 147 H ALT 42 H Alkaline Phosphatase 86 Ammonia Total Creatine Kinase Troponin I High Sens 150.2 H* D Total Protein 5.2 L Albumin 3.4 L Hep Bs Antigen Hep Bs Antibody Hep B Core Total Ab Hepatitis C Ab (EIA) Blood Type Antibody Screen 03/30/21 03/31/21 03/31/21 23:00 01:07 01:10 WBC RBC Hgb Hct MCV MCH MCHC RDW Plt Count MPV Immature Gran % (Auto) Neut % (Auto) Lymph % (Auto) [place] % (Auto) Eos % (Auto) Baso % (Auto) Lymph # (Auto) [place] # (Auto) Eos # (Auto) Baso # (Auto) Abs Immat Gran (auto) Absolute Neuts (auto) Absolute Nucleated RBC Nucleated RBC % (auto) Neutrophils % (Manual) Band Neutrophils % Lymphocytes % (Manual) Monocytes % (Manual) Metamyelocytes % Abs Neuts (Manual) Lymphocytes # (Manual) Monocytes # (Manual) Metamyelocytes # Toxic Vacuolation Dohle Bodies Platelet Estimate Plt Morphology Comment RBC Morphology Acanthocytes (Spur) O2 Saturation ABG pH at Pt Temp ABG pH (Temp Correct) ABG pCO2 at Pt Temp ABG pCO2 (Temp Corrct ABG pO2 at Pt Temp ABG pO2 (Temp Correct ABG HCO3 ABG Base Excess (Actual) VBG pH VBG pCO2 VBG pO2 VBG HCO3 VBG O2 Saturation VBG Base Excess Sodium Potassium Chloride Carbon Dioxide Anion Gap BUN Creatinine Estim Creat Clear Calc Estimated GFR Random Glucose Lactic Acid 11.5 H* Lactic Acid Fup @ 2Hr 16.1 H* Lactic Acid Fup @ 4Hr Calcium Phosphorus Magnesium Total Bilirubin AST ALT Alkaline Phosphatase Ammonia Total Creatine Kinase Troponin I High Sens Total Protein Albumin Hep Bs Antigen Hep Bs Antibody Hep B Core Total Ab Hepatitis C Ab (EIA) Blood Type O Negative Antibody Screen NEGATIVE 03/31/21 03:25 WBC RBC Hgb Hct MCV MCH MCHC RDW Plt Count MPV Immature Gran % (Auto) Neut % (Auto) Lymph % (Auto) [place] % (Auto) Eos % (Auto) Baso % (Auto) Lymph # (Auto) [place] # (Auto) Eos # (Auto) Baso # (Auto) Abs Immat Gran (auto) Absolute Neuts (auto) Absolute Nucleated RBC Nucleated RBC % (auto) Neutrophils % (Manual) Band Neutrophils % Lymphocytes % (Manual) Monocytes % (Manual) Metamyelocytes % Abs Neuts (Manual) Lymphocytes # (Manual) Monocytes # (Manual) Metamyelocytes # Toxic Vacuolation Dohle Bodies Platelet Estimate Plt Morphology Comment RBC Morphology Acanthocytes (Spur) O2 Saturation ABG pH at Pt Temp ABG pH (Temp Correct) ABG pCO2 at Pt Temp ABG pCO2 (Temp Corrct ABG pO2 at Pt Temp ABG pO2 (Temp Correct ABG HCO3 ABG Base Excess (Actual) VBG pH VBG pCO2 VBG pO2 VBG HCO3 VBG O2 Saturation VBG Base Excess Sodium Potassium Chloride Carbon Dioxide Anion Gap BUN Creatinine Estim Creat Clear Calc Estimated GFR Random Glucose Lactic Acid Lactic Acid Fup @ 2Hr Lactic Acid Fup @ 4Hr 22.3 H* Calcium Phosphorus Magnesium Total Bilirubin AST ALT Alkaline Phosphatase Ammonia Total Creatine Kinase Troponin I High Sens Total Protein Albumin Hep Bs Antigen Hep Bs Antibody Hep B Core Total Ab Hepatitis C Ab (EIA) Blood Type Antibody Screen Preliminary micro results at discharge 03/28/21 18:53 Blood Culture - Preliminary Blood - Venous Gram negative zoie 03/28/21 18:53 Blood Culture - Preliminary Blood - Venous Gram negative zoie <RONI De Luna - Last Filed: 03/31/21 19:50> Discharge Plan Discharge Date/Time: 03/31/21 04:25 <RONI De Luna - Last Filed: 03/31/21 19:50> Patient Disposition: <RONI De Luna - Last Filed: 03/31/21 19:50> Referrals: Po,Caryn Rice MD [Primary Care Provider] - 1 Week <RONI De Luna - Last Filed: 03/31/21 19:50> Discharge Medications: New polyethylene glycol 3350 [Miralax] 17 gram/dose powder 17 g PO DAILY PRN (Reason: constipation) Qty: 119 RF: 0 nitrofurantoin monohyd/m-cryst [Macrobid] 100 mg capsule 100 mg PO Q12H 5 Days Qty: 10 RF: 0 No Action losartan 50 mg tablet 50 mg PO DAILY Qty: 90 RF: 3 albuterol sulfate [Ventolin HFA] 90 mcg/actuation HFA aerosol inhaler 2 puff inhalation Q4-6H PRN (Reason: shortness of breath or wheezing) Qty: 18 RF: 2 gabapentin 100 mg capsule 1 cap PO BEDTIME RF: 0 cholecalciferol (vitamin D3) 25 mcg (1,000 unit) capsule 25 mcg PO DAILY RF: 0 calcium carbonate [Calcium 600] 600 mg calcium (1,500 mg) tablet 600 mg PO DAILY RF: 0 cyanocobalamin (vitamin B-12) 1,000 mcg capsule 1,000 mcg PO DAILY RF: 0 ascorbic acid (vitamin C) 500 mg capsule See Rx Instructions .ROUTE .COMPLEX RF: 0 multivitamin Tablet 1 tab PO DAILY RF: 0 omega-3 fatty acids 1,000 mg capsule 1,000 mg PO DAILY RF: 0 coenzyme Q10 [Co Q-10] 10 mg capsule 10 mg PO DAILY RF: 0 ipratropium-albuterol 0.5 mg-3 mg(2.5 mg base)/3 mL solution for nebulization 3 ml inhalation Q4-6H PRN (Reason: Shortness Of Breath Or Wheezing) RF: 0 glucosamine-chondroitn sulf.Na 750-400 mg combo pack See Rx Instructions .ROUTE .COMPLEX RF: 0 ciclopirox [Loprox (as olamine)] 0.77 % cream See Protocol applic topical USEASDIRECTD RF: 0 triamcinolone acetonide 0.1 % cream See Rx Instructions .ROUTE .COMPLEX RF: 0 ketoconazole 2 % cream See Rx Instructions .ROUTE .COMPLEX RF: 0 polyethylene glycol 3350 [Miralax] 17 gram/dose powder 17 g PO DAILY PRN (Reason: constipation) Qty: 238 RF: 0 prednisone 10 mg tablet 20 mg PO DAILY RF: 0 bumetanide 1 mg tablet 1 mg PO DAILY 30 Days Qty: 30 RF: 2 hydrocortisone [Proctosol HC] 2.5 % cream with perineal applicator 1 appl MO BID-QID PRN (Reason: hemorrhoids) Qty: 30 RF: 1 zinc 22 mg tablet 20 mg PO DAILY RF: 0 Humira(CF) 40 mg/0.4 mL syringe kit See Rx Instructions subcut .COMPLEX Qty: 2 RF: 3 <RONI De Luna - Last Filed: 03/31/21 19:50> Activity Restrictions/Additional Instructions: <RONI De Luna - Last Filed: 03/31/21 19:50> Patient Instructions: Constipation (ED), Urinary Tract Infection in Women (ED) <RONI De Luna - Last Filed: 03/31/21 19:50> Discharge Date/Time: 03/31/21 04:53 <RONI De Luna - Last Filed: 03/31/21 19:50>
[2021-03-31 05:01] LABS: Glucose, Whole Blood 10 mg/dL (60-115)
[2021-04-08 08:50] LABS: ABG Base Excess -1.3 mmol/L; ABG HCO3 23 mmol/L (22-26); ABG pCO2 41 mmHg (32-45); ABG pH 7.36 (7.35-7.45); ABG pO2 184 mmHg (83-108)
== END 2021-03-31 04:53 | disposition expired | DRG 871 ==
LOC: HO.ED 21:10 → HO.EDOVER 03-27 04:11 → HO.S3 03-27 07:03 → HO.ICU 03-28 16:17 → HO.IMC 03-30 → HO.ICU 03-30 09:56
PROVIDERS: Hospitalist; Internal Medicine Nephrology; Physician Assistant; Physician Assistant Medical; Admitting Provider Internal Medicine; Emergency Provider Emergency Medicine; PCP Internal Medicine; Visit Provider Internal Medicine Pulmonary Disease
DX: A41.50 Gram-negative sepsis, unspecified (principal); N17.0 Acute kidney failure with tubular necrosis; J69.0 Pneumonitis due to inhalation of food and vomit; J96.01 Acute respiratory failure with hypoxia; G93.41 Metabolic encephalopathy; R65.21 Severe sepsis with septic shock; Z68.43 Body mass index [BMI] 50.0-59.9, adult; K56.7 Ileus, unspecified; N39.0 Urinary tract infection, site not specified; E03.9 Hypothyroidism, unspecified; J45.909 Unspecified asthma, uncomplicated; I95.9 Hypotension, unspecified; K21.9 Gastro-esophageal reflux disease without esophagitis; M06.9 Rheumatoid arthritis, unspecified; K59.00 Constipation, unspecified; I16.0 Hypertensive urgency; E66.01 Morbid (severe) obesity due to excess calories; I10 Essential (primary) hypertension; G47.33 Obstructive sleep apnea (adult) (pediatric); Z20.822 Contact with and (suspected) exposure to COVID-19; Z88.0 Allergy status to penicillin; Z79.52 Long term (current) use of systemic steroids; Z79.890 Hormone replacement therapy; Z79.899 Other long term (current) drug therapy
CPT/HCPCS: 36415; 36600; 71045; 71046; 71275; 74174; 74176; 74177; 80048; 80053; 80076; 80307; 81001; 82040; 82140; 82247; 82550; 82803; 82947; 83605; 83690; 83735; 83880; 84075; 84100; 84300; 84450; 84460; 84484; 85007; 85025; 85027; 85379; 86704; 86706; 86803; 86850; 86900; 86901; 87040; 87077; 87086; 87186; 87205; 87340; 87635; 93005; 93970; 94002; 94003; 94660; 94799; 99285; 99497; J0171; J0282; J0610; J0692; J1160; J1170; J1885; J2270; J2370; J2405; J2765; J3475; P9047; Q9967